=== PATIENT | female | born 1980 | race Caucasian/White ===

== ENCOUNTER 2016-09-10 10:35 | Emergency (ER) | payer OTHER, MEDICARE ==
[~2016-09-10] VITALS: Ht 180.3 cm; Wt 100.0 kg
[~2016-09-10 10:35] MED LIST: ABILIFY5 MG OR; ACETTAB3 OR; ADALAT CC60 MG PO; AMBIEN5 MG PO; AMOXICILLIN500 MG OR; ANTIVERT PO; ASPIRIN LOW DOS81 M2 PO; ATORVASTATIN CA40 MG PO; AUGMENTIN875 MG OR; BACTRIM DS1 TAB OR; BACTRIM DS1 TAB PO; CEFEPIME IV; CLONIDINE0.1 MG OR; CLONIDINE0.1 MG PO; CLONIDINE0.2 MG PO; DICLOFENAC75 MG OR; DIFLUCAN100 MG OR; DOXYCYCL HYC100 M4 PO; DOXYCYCL HYC100 MG PO; FERR SULFATE325 MG OR; FLUOXETINE20 MG PO; GLYBURIDE5 MG OR; HUMULIN R1 M1 SC; HUMULIN R1 ML SC; HYDRALAZINE50 MG OR; HYDROCHLOROT25 MG OR; JANUVIA100 MG OR; KEFLEX500 M1 PO; KLOR-CON 1010 ME1 PO; LABETALOL200 MG OR; LAMICTAL100 M1 PO; LAMICTAL150 M1 OR; LANTUS100 MG/ML SC; LEVEMIR1000 UNITS; LEVEMIR1000 UNITS SC; LEXAPRO10 MG OR; LEXAPRO20 MG OR; LISINOP/HCTZ1 TAB PO; LISINOPRIL10 MG OR; LISINOPRIL20 M1 OR; LISINOPRIL20 MG PO; LORTAB 10 OR; LORTAB 1010 MG PO; LORTAB 5 OR; LORTAB 7.5 OR; LORTAB5 OR; MEDDOSEPAK PO; METO25TAB OR; NAPROSYN500 MG OR; NAPROSYN500 MG PO; NAPROXEN500 MG PO; NIFEDIPINE60 M1 OR; NORCO1 TA1 PO; NOVOLIN 70/30 SC; NYSTATIN100000 M3 EX; PERCOCET 5/325M1 TAB OR; PROCARDIA XL60 MG PO; PROCARDIA10 MG OR; PROCARDIA10 MG PO; PROZAC10 MG PO; RYZOLT100 MG OR; TRAMADOL HCL50 MG PO; TRAZODONE100 MG OR; TRAZODONE50 MG PO; TRICOR145 MG PO; TRILEPTAL300 MG PO; TYLENOL # 31 TA1 PO; ULTRAM50 M1 PO; ULTRAM50 MG OR; UNKNOWN PAIN MED; VANCOMYCIN HCL1.5GM IV; VENTOLIN HFA IN; VISTARIL 50MG C50 M1 PO; ZANAFLEX4 MG PO; ZITHROMAX250 MG PO; ZITHROMAX500 MG OR; ZOFRAN ODT4 MG PO; ZPAK PO; [UNRECOGNIZED DRUG - CODE] OR; [UNRECOGNIZED DRUG - OTHER] IV
[2016-09-10] MEDS ORDERED: TRESIBA FL100 UNIT/M SC (10:59)
[2016-09-10 12:51] VITALS: BP 176/88
[2016-09-10] MEDS ORDERED: NAPROSYN500 MG PO (12:51)
== END 2016-09-10 12:59 | disposition home or self-care (01) | DRG 552 ==
LOC: ED 10:35
DX: S16.1XXA Strain of muscle, fascia and tendon at neck level, initial encounter (principal); I10 Essential (primary) hypertension; S39.012A Strain of muscle, fascia and tendon of lower back, initial encounter; E11.9 Type 2 diabetes mellitus without complications; F41.0 Panic disorder [episodic paroxysmal anxiety]; F31.9 Bipolar disorder, unspecified; F17.210 Nicotine dependence, cigarettes, uncomplicated; V49.49XA Driver injured in collision with other motor vehicles in traffic accident, initial encounter

== ENCOUNTER 2016-11-24 10:26 | Emergency (ER) | payer MEDICARE, OTHER ==
[~2016-11-24] VITALS: Ht 177.8 cm; Wt 100.0 kg
[~2016-11-24 10:26] MED LIST changes: +TRESIBA FL100 UNIT/M SC
[2016-11-24 11:10] LABS: URINE BILIRUBIN - DIPSTICK SMALL (NEGATIVE); URINE BLOOD DIPSTICK NEGATIVE (NEGATIVE); URINE CLARITY SLIGHT CLOUDY; URINE COLOR YELLOW; URINE GLUCOSE - DIPSTICK >=1000 mg/dL (NEGATIVE); URINE KETONE NEGATIVE (NEGATIVE); URINE LEUK ESTERASE NEGATIVE (NEGATIVE); URINE NITRITE - DIPSTICK NEGATIVE (Negative); URINE PH 5.5 (4.5-8.0); URINE PROTEIN - DIPSTICK 100 mg/dL (NEG-TRACE); URINE SPECIFIC GRAVITY >=1.030; URINE UROBILINOGEN - DIPSTICK 0.2 E.U./dL (0.2)
[2016-11-24 11:11] LABS: URINE EPITHELIAL CELLS MODERATE EPI/hpf (0-FEW); URINE MUCUS FEW hpf (NONE-FEW)
[2016-11-24 12:07] LABS: C. DIFFICILE TOXIN A&B NEGATIVE (NEGATIVE)
[2016-11-24 12:41] LABS: HEMATOCRIT 43.8 % (37.0-47.0); HEMOGLOBIN 15.2 g/dl (12.0-16.0); IMMATURE GRANULOCYTES 0.3 % (0.0-1.0); MEAN CELL VOLUME 82.5 fL CALC (80.0-100.0); MEAN CORPUSCULAR HGB 28.6 pG CALC (26.0-32.0); MEAN CORPUSCULAR HGB CONC 34.7 g/L CALC (32.0-36.0); NEUT# 9.34 thou/uL (2.00-7.15); RED BLOOD COUNT 5.31 mill/uL (4.20-5.60); RED CELL DISTRI WIDTH 12.2 % (11.5-15.5)
[2016-11-24 12:51] LABS: BARBITURATES NEGATIVE (NEGATIVE); COCAINE NEGATIVE (NEGATIVE); METHADONE NEGATIVE (NEGATIVE); OXCYCODONE NEGATIVE (NEGATIVE); TETRAHYDROCANNABIONOL NEGATIVE (NEGATIVE); TRICYLIC ANTIDEPRESSANTS NEGATIVE (NEGATIVE)
[2016-11-24 13:05] LABS: ALBUMIN 4.4 g/dL (3.2-5.0); ALKALINE PHOSPHATASE 97 u/l (38-126); ANION GAP 17 (6-22 (CALC)); BILIRUBIN, TOTAL 0.6 mg/dL (0.0-1.4); BUN 23 mg/dL (7-17); BUN/CREATININE RATIO 21 (12-20 (CALC)); CALCIUM 9.6 mg/dL (8.4-10.2); CARBON DIOXIDE 25 mmol/l (22-30); CHLORIDE 98 mmol/l (95-108); CREATININE 1.1 mg/dL (0.5-1.0); GFR 56 ML/MIN (>=60 (CALC)); GFR FOR AFR.AMER. > 60 ML/MIN (>=60 (CALC)); GLUCOSE 340 mg/dL (65-105); LIPASE 165 u/l (23-300); SGOT/AST 22 u/l (14-36); SGPT/ALT 47 u/l (9-52); SODIUM 136 mmol/l (137-146); TOTAL PROTEIN 7.7 g/dL (6.3-8.2)
[2016-11-24] MEDS ORDERED: ZITHROMAX250 MG PO (13:43)
[2016-11-24] MEDS ORDERED: ZOFRAN ODT4 MG PO (13:43)
[2016-11-24 14:19] VITALS: BP 137/76
== END 2016-11-24 14:33 | disposition home or self-care (01) ==
LOC: ED 10:26
PROVIDERS: Emergency Medicine
DX: K52.9 Noninfective gastroenteritis and colitis, unspecified (principal); I10 Essential (primary) hypertension; E11.9 Type 2 diabetes mellitus without complications; F41.0 Panic disorder [episodic paroxysmal anxiety]; F31.9 Bipolar disorder, unspecified; G89.29 Other chronic pain; M54.9 Dorsalgia, unspecified; F17.210 Nicotine dependence, cigarettes, uncomplicated
CPT/HCPCS: Q9967

== ENCOUNTER 2016-12-04 06:59 | Emergency (ER) | payer OTHER, MEDICARE ==
[~2016-12-04] VITALS: Ht 177.8 cm; Wt 100.0 kg
[2016-12-04 07:49] LABS: HEMATOCRIT 44.6 % (37.0-47.0); HEMOGLOBIN 15.4 g/dl (12.0-16.0); IMMATURE GRANULOCYTES 0.6 % (0.0-1.0); MEAN CELL VOLUME 82.7 fL CALC (80.0-100.0); MEAN CORPUSCULAR HGB 28.6 pG CALC (26.0-32.0); MEAN CORPUSCULAR HGB CONC 34.5 g/L CALC (32.0-36.0); NEUT# 5.82 thou/uL (2.00-7.15); RED BLOOD COUNT 5.39 mill/uL (4.20-5.60); RED CELL DISTRI WIDTH 12.2 % (11.5-15.5)
[2016-12-04 08:17] LABS: ALBUMIN 4.4 g/dL (3.2-5.0); ALKALINE PHOSPHATASE 97 u/l (38-126); ANION GAP 16 (6-22 (CALC)); BILIRUBIN, TOTAL 0.6 mg/dL (0.0-1.4); BUN 17 mg/dL (7-17); BUN/CREATININE RATIO 20 (12-20 (CALC)); CALCIUM 9.5 mg/dL (8.4-10.2); CARBON DIOXIDE 28 mmol/l (22-30); CHLORIDE 98 mmol/l (95-108); CREATININE 0.8 mg/dL (0.5-1.0); ETHYL ALCOHOL 0 mg/dl (0-30); GFR > 60 ML/MIN (>=60 (CALC)); GFR FOR AFR.AMER. > 60 ML/MIN (>=60 (CALC)); GLUCOSE 319 mg/dL (65-105); POTASSIUM 3.9 mmol/l (3.5-5.1); SGOT/AST 37 u/l (14-36); SGPT/ALT 64 u/l (9-52); SODIUM 137 mmol/l (137-146); TOTAL PROTEIN 7.2 g/dL (6.3-8.2)
[2016-12-04 08:40] LABS: COCAINE NEGATIVE (NEGATIVE); METHADONE NEGATIVE (NEGATIVE); TETRAHYDROCANNABIONOL NEGATIVE (NEGATIVE)
[2016-12-04 08:41] LABS: BARBITURATES NEGATIVE (NEGATIVE); OXCYCODONE NEGATIVE (NEGATIVE); TRICYLIC ANTIDEPRESSANTS POSITIVE (NEGATIVE)
[2016-12-04] MEDS ORDERED: MOTRIN800 MG PO (09:05)
[2016-12-04] MEDS ORDERED: PERCOCET 5/325M1 TAB PO (09:05)
[2016-12-04 09:10] VITALS: BP 124/80
== END 2016-12-04 09:24 | disposition home or self-care (01) | DRG 605 ==
LOC: ED 06:59
PROVIDERS: Emergency Medicine
DX: S20.212A Contusion of left front wall of thorax, initial encounter (principal); R07.89 Other chest pain; V53.5XXD Driver of pick-up truck or van injured in collision with car, pick-up truck or van in traffic accident, subsequent encounter

== ENCOUNTER 2017-01-05 11:28 | Emergency (ER) | payer MEDICARE, OTHER ==
[~2017-01-05] VITALS: Ht 180.3 cm; Wt 92.0 kg
[~2017-01-05 11:28] MED LIST changes: +MOTRIN800 MG PO; +PERCOCET 5/325M1 TAB PO
[2017-01-05 12:52] VITALS: BP 175/104
== END 2017-01-05 12:41 | disposition home or self-care (01) ==
LOC: ED 11:28
PROC: 0H98XZZ Drainage of Buttock Skin, External Approach (ICD-10-PCS; principal; 2017-01-05)
DX: L02.31 Cutaneous abscess of buttock (principal); I10 Essential (primary) hypertension; E11.9 Type 2 diabetes mellitus without complications; F41.0 Panic disorder [episodic paroxysmal anxiety]; F31.9 Bipolar disorder, unspecified; F17.210 Nicotine dependence, cigarettes, uncomplicated; Z79.4 Long term (current) use of insulin

== ENCOUNTER 2017-01-06 09:35 | Emergency (ER) | payer MEDICARE, OTHER ==
[~2017-01-06] VITALS: Ht 180.3 cm; Wt 101.0 kg
[2017-01-06 10:13] VITALS: BP 128/83
== END 2017-01-06 10:00 | disposition home or self-care (01) ==
LOC: ED 09:35
DX: Z48.01 Encounter for change or removal of surgical wound dressing (principal)

== ENCOUNTER 2017-01-18 20:11 | Emergency (ER) | payer MEDICARE, OTHER ==
[~2017-01-18] VITALS: Ht 180.3 cm; Wt 92.7 kg
[2017-01-18] MEDS ORDERED: NEURONTIN300 MG PO (20:28)
[2017-01-18] MEDS ORDERED: HYDROCODONE/ACE1 TAB PO (20:29)
[2017-01-18] MEDS ORDERED: ULTRAM50 M1 PO (21:55)
[2017-01-18 22:25] VITALS: BP 172/99
== END 2017-01-18 22:25 | disposition home or self-care (01) ==
LOC: ED 20:11
DX: S00.93XA Contusion of unspecified part of head, initial encounter (principal); S13.9XXA Sprain of joints and ligaments of unspecified parts of neck, initial encounter; S43.401A Unspecified sprain of right shoulder joint, initial encounter; S33.5XXA Sprain of ligaments of lumbar spine, initial encounter; Y04.0XXA Assault by unarmed brawl or fight, initial encounter; W18.39XA Other fall on same level, initial encounter; Y92.009 Unspecified place in unspecified non-institutional (private) residence as the place of occurrence of the external cause

== ENCOUNTER 2017-01-26 05:42 | Inpatient (IN) | payer MEDICARE, OTHER ==
[~2017-01-26] VITALS: Ht 180.3 cm; Wt 88.0 kg
[~2017-01-26 05:42] MED LIST changes: +HYDROCODONE/ACE1 TAB PO; +NEURONTIN300 MG PO
--- NOTE | 2017-01-26 06:00 | NUR ---
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
[2017-01-26 06:18] LABS: HEMATOCRIT 43.2 % (37.0-47.0); HEMOGLOBIN 15.3 g/dl (12.0-16.0); IMMATURE GRANULOCYTES 0.4 % (0.0-1.0); MEAN CELL VOLUME 81.2 fL CALC (80.0-100.0); MEAN CORPUSCULAR HGB 28.8 pG CALC (26.0-32.0); MEAN CORPUSCULAR HGB CONC 35.4 g/L CALC (32.0-36.0); NEUT# 17.57 thou/uL (2.00-7.15); RED BLOOD COUNT 5.32 mill/uL (4.20-5.60); RED CELL DISTRI WIDTH 12.3 % (11.5-15.5)
[2017-01-26 06:27] LABS: ALBUMIN 4.6 g/dL (3.2-5.0); ALKALINE PHOSPHATASE 164 u/l (38-126); AMYLASE 58 u/l (30-110); ANION GAP 20 (6-22 (CALC)); BILIRUBIN, TOTAL 0.7 mg/dL (0.0-1.4); BUN 27 mg/dL (7-17); BUN/CREATININE RATIO 26 (12-20 (CALC)); CALCIUM 9.5 mg/dL (8.4-10.2); CARBON DIOXIDE 20 mmol/l (22-30); CHLORIDE 95 mmol/l (95-108); GFR > 60 ML/MIN (>=60 (CALC)); GFR FOR AFR.AMER. > 60 ML/MIN (>=60 (CALC)); LIPASE 160 u/l (23-300); POTASSIUM 3.5 mmol/l (3.5-5.1); SGOT/AST 36 u/l (14-36); SGPT/ALT 53 u/l (9-52); SODIUM 131 mmol/l (137-146); TOTAL PROTEIN 7.9 g/dL (6.3-8.2)
[2017-01-26 06:30] LABS: GLUCOSE 560 mg/dL (65-105)
--- NOTE | 2017-01-26 06:32 | NUR ---
DR Collins INFORMED OF WBC LAB ORDERED STAT LACTIC ACID LAB
--- NOTE | 2017-01-26 06:49 | NUR ---
BEDSIDE REPORT TO WILBERT
--- NOTE | 2017-01-26 07:00 | NUR ---
PATIENT CARE RECIEVED FROM JANAE RO RN.
[2017-01-26 07:04] LABS: URINE BILIRUBIN - DIPSTICK NEGATIVE (NEGATIVE); URINE BLOOD DIPSTICK SMALL (NEGATIVE); URINE CLARITY SLIGHT CLOUDY; URINE COLOR YELLOW; URINE GLUCOSE - DIPSTICK >=1000 mg/dL (NEGATIVE); URINE KETONE TRACE mg/dL (NEGATIVE); URINE LEUK ESTERASE NEGATIVE (NEGATIVE); URINE NITRITE - DIPSTICK NEGATIVE (Negative); URINE PROTEIN - DIPSTICK 30 mg/dL (NEG-TRACE); URINE SPECIFIC GRAVITY 1.015; URINE UROBILINOGEN - DIPSTICK 0.2 E.U./dL (0.2)
[2017-01-26 07:23] LABS: URINE SQUAMOUS EPITHELIAL CELL MANY EPI/hpf (0-FEW)
[2017-01-26 07:24] LABS: URINE BACTERIA MODERATE hpf
--- NOTE | 2017-01-26 07:43 | NUR ---
PATIENT RETURNED FROM CT VIA STRETCHER. PATIENT RESTING IN STRETCHER WITH EYES CLOSED, AWAKENS TO VERBAL STIMULI. PAIN NOW 7/10 BUT BEARABLE PER PATIENT. INFOMRED OF PLAN OF CARE. VSS. WILL CONTINUE TO MONITOR. CALL SHANKAR WITHIN REACH.
--- NOTE | 2017-01-26 08:05 | NUR ---
INFORMED MD OF PATIENTS BLOOD GLUCOSE STATUS AND ORDERS RECIEVED
--- NOTE | 2017-01-26 09:00 | NUR ---
PATIENT REPORTS PAIN AT A 5/10. DENIES ANY NEEDS AT THIS TIME. AWARE OF PENDING ADMISSION. WILL CONTINUE TO MONITOR.
--- NOTE | 2017-01-26 09:15 | NUR ---
ACCUCHECK COMPLETED - 360. PATIENT RESTING WITH EYES CLOSED IN STRETCHER, AWAKENS TO VERBAL STIMULI. WILL CONTINUE TO MONITOR.
--- NOTE | 2017-01-26 09:20 | NUR ---
REPORT CALLED TO CAROL DONG.
--- NOTE | 2017-01-26 09:30 | NUR ---
PATIENT AMBULATORY TO BATHROOM WITH A STEADY GAIT.
--- NOTE | 2017-01-26 09:40 | NUR ---
FROM ER VIA WHEELCHAIR ACCOMPANIED BY ALEJANDRO MARIANO. AMBULATED TO BED WITH STEADY GAIT. RESPS EVEN AND UNLABORED ON ROOM AIR, TELE MONITOR IN PLACE. #20 RFA INFUSING WITHOUT DIFFICULTY, SITE APPEARS HEALTHY. DENIES PAIN OR DISCOMFORT. ORIENTED TO ROOM AND CALL SYSTEM. SAFETY PRECAUTIONS REINFORCED. BED IN LOWEST POSITION WITH WHEELS LOCKED. CALL LIGHT WITHIN REACH. ENCOURAGED PT TO CALL FOR ANY NEEDS.
[2017-01-26 09:45] VITALS: BP 133/85
--- NOTE | 2017-01-26 09:46 | NUR ---
Admission Note Report Given to: IKER Transported by: X Wheelchair Stretcher Transported with: X Nurse Transporter X Patent IV O2 X Polymerization Engineer PATIENT TRANSFERED TO ROOM 263 VIA WHEELCHAIR IN STABLE CONDITION, PAIN 11/19. IV X2 PATENT.
--- NOTE | 2017-01-26 09:47 | NUR ---
PATIENT TRANSPORTED TO [facility]
--- NOTE | 2017-01-26 12:00 | NUR ---
SITTING IN BED EATING LUNCH. RESPS EVEN AND UNLABORED ON ROOM AIR, TELE MONITOR IN PLACE. #22 RFA INFUSING WITHOUT DIFFICULTY, SITE APPEARS HEALTHY. MEDICATED WITH LORTAB PO C/O 01/19 LOW BACK PAIN. CALL MALINA SEGOVIA. WILL CONTINUE TO MONITOR.
[2017-01-26] MEDS ORDERED: NOVOLOG MIX SC (13:17)
[2017-01-26 14:27] VITALS: BP 136/93
--- NOTE | 2017-01-26 14:39 | NUR ---
Patient was tired and was feeling hot. Did not have any questions or concerns regarding medication.
--- NOTE | 2017-01-26 16:10 | NUR ---
RESTING IN SEMI FOWLERS POSITION. RESPS EVEN AND UNLABORED ON ROOM AIR, TELE MONITOR IN PLACE. #22 LFA INFUSING WITHOUT DIFFICULTY, SITE APPEARS HEALTHY. AMBULATES TO BATHROOM WITH STEADY GAIT. PO FLUIDS OFFERED. CALL LIGHT WITHIN REACH. WILL CONTINUE TO MONITOR.
[2017-01-26 19:47] VITALS: BP 168/98
--- NOTE | 2017-01-26 20:15 | NUR ---
MEDICATED WITH LORTAB FOR LOWER BACK PAIN AND HEADACHE 02/19. NS INFUSING TO LFA AT 150CC/HR. CALL LIGHT IN REACH. WILL CONTINUE TO MONITOR.
--- NOTE | 2017-01-27 | NUR ---
RESTING ON RIGHT SIDE WITH EYES CLOSED, RESPIRATIONS EVEN AND UNLABORED.
[2017-01-27 01:20] VITALS: BP 139/93
--- NOTE | 2017-01-27 03:55 | NUR ---
C/O LOWER BACK PAIN 04/21, MEDICATED WITH LORTAB AT THIS TIME.
[2017-01-27 03:58] VITALS: BP 138/90
[2017-01-27 06:19] LABS: HEMATOCRIT 37.8 % (37.0-47.0); IMMATURE GRANULOCYTES 0.3 % (0.0-1.0); MEAN CELL VOLUME 83.1 fL CALC (80.0-100.0); MEAN CORPUSCULAR HGB 28.6 pG CALC (26.0-32.0); MEAN CORPUSCULAR HGB CONC 34.4 g/L CALC (32.0-36.0); NEUT# 7.21 thou/uL (2.00-7.15); RED BLOOD COUNT 4.55 mill/uL (4.20-5.60); RED CELL DISTRI WIDTH 12.6 % (11.5-15.5)
[2017-01-27 06:42] LABS: ANION GAP 14 (6-22 (CALC)); BUN 15 mg/dL (7-17); BUN/CREATININE RATIO 22 (12-20 (CALC)); CALCIUM 9.1 mg/dL (8.4-10.2); CARBON DIOXIDE 25 mmol/l (22-30); CHLORIDE 99 mmol/l (95-108); CREATININE 0.7 mg/dL (0.5-1.0); GFR > 60 ML/MIN (>=60 (CALC)); GFR FOR AFR.AMER. > 60 ML/MIN (>=60 (CALC)); GLUCOSE 141 mg/dL (65-105); POTASSIUM 3.5 mmol/l (3.5-5.1); SODIUM 135 mmol/l (137-146)
--- NOTE | 2017-01-27 07:00 | NUR ---
RECEIVED BEDSIDE REPORT FROM NITISH MARIANO. IN HIGH FOWLERS WATCHING TV. RESPS EVEN AND UNLABORED ON ROOM AIR, TELE MONITOR IN PLACE. #22 LFA INFUSING WITHOUT DIFFICULTY, SITE APPEARS HEALTHY. VOICES NO NEEDS AT THIS TIME. PLAN OF CARE DISCUSSED. SAFETY PRECAUTIONS REINFORCED. BED IN LOWEST POSITION WITH WHEELS LOCKED. CALL LIGHT WITHIN REACH. ENCOURAGED PT TO CALL FOR ANY NEEDS.
[2017-01-27 07:49] VITALS: BP 156/98
[2017-01-27 07:54] VITALS: BP 156/98
[2017-01-27 08:17] LABS: CHOLESTEROL HDL RATIO 6.2 (<4.4 (CALC))
--- NOTE | 2017-01-27 09:25 | NUR ---
DR TATE IN TO SEE PT, NEW ORDERS RECEIVED.
[2017-01-27] MEDS ORDERED: FISH OIL1000 M2 PO (09:52)
[2017-01-27] MEDS ORDERED: NOVOLOG100 UNIT/M SC (09:52)
--- NOTE | 2017-01-27 10:49 | NUR ---
Discharge instructions given. Patient verbalizes understanding of same. Discharged in stable condition via Wheelchair to Home with family. All belongings sent with pt.
== END 2017-01-27 10:49 | disposition home or self-care (01) | DRG 638 ==
LOC: ENPENDDIS → ED 05:42 → ED-I 06:04 → ED 06:04 → ED-I 06:28 → ED 08:17 → MS2 08:18
PROVIDERS: Emergency Medicine; Nurse Practitioner Family; ADMIT Internal Medicine; ATTEND Internal Medicine
DX: E11.65 Type 2 diabetes mellitus with hyperglycemia (principal); N39.0 Urinary tract infection, site not specified; I10 Essential (primary) hypertension; E87.1 Hypo-osmolality and hyponatremia; F41.0 Panic disorder [episodic paroxysmal anxiety]; F31.9 Bipolar disorder, unspecified; G47.30 Sleep apnea, unspecified; F17.210 Nicotine dependence, cigarettes, uncomplicated; G89.29 Other chronic pain; M54.9 Dorsalgia, unspecified; E86.0 Dehydration; K52.9 Noninfective gastroenteritis and colitis, unspecified; E78.1 Pure hyperglyceridemia; Z91.14 Patient's other noncompliance with medication regimen; Z79.4 Long term (current) use of insulin; Z63.9 Problem related to primary support group, unspecified
CPT/HCPCS: J1956

== ENCOUNTER 2017-03-16 15:42 | Emergency (ER) | payer MEDICARE, OTHER ==
[~2017-03-16] VITALS: Ht 180.3 cm; Wt 80.0 kg
[~2017-03-16 15:42] MED LIST changes: +FISH OIL1000 M2 PO; +NOVOLOG MIX SC; +NOVOLOG100 UNIT/M SC
[2017-03-16 16:55] LABS: HEMATOCRIT 42.5 % (37.0-47.0); HEMOGLOBIN 14.4 g/dl (12.0-16.0); IMMATURE GRANULOCYTES 0.5 % (0.0-1.0); MEAN CELL VOLUME 82.4 fL CALC (80.0-100.0); MEAN CORPUSCULAR HGB 27.9 pG CALC (26.0-32.0); MEAN CORPUSCULAR HGB CONC 33.9 g/L CALC (32.0-36.0); NEUT# 8.06 thou/uL (2.00-7.15); RED BLOOD COUNT 5.16 mill/uL (4.20-5.60); RED CELL DISTRI WIDTH 12.6 % (11.5-15.5)
[2017-03-16 17:10] LABS: ANION GAP 15 (6-22 (CALC)); BUN 22 mg/dL (7-17); BUN/CREATININE RATIO 22 (12-20 (CALC)); CALCIUM 9.4 mg/dL (8.4-10.2); CARBON DIOXIDE 27 mmol/l (22-30); CHLORIDE 102 mmol/l (95-108); GFR > 60 ML/MIN (>=60 (CALC)); GFR FOR AFR.AMER. > 60 ML/MIN (>=60 (CALC)); GLUCOSE 124 mg/dL (65-105); POTASSIUM 4.2 mmol/l (3.5-5.1); SODIUM 139 mmol/l (137-146)
[2017-03-16] MEDS ORDERED: BACTRIM DS1 TAB PO (18:49)
[2017-03-16] MEDS ORDERED: OMNICEF300 M1 PO (18:49)
[2017-03-16 19:02] VITALS: BP 184/87
== END 2017-03-16 19:37 | disposition home or self-care (01) ==
LOC: ED 15:42
PROVIDERS: Family Medicine
DX: F17.210 Nicotine dependence, cigarettes, uncomplicated (principal); I10 Essential (primary) hypertension; E11.9 Type 2 diabetes mellitus without complications; F41.9 Anxiety disorder, unspecified; F31.9 Bipolar disorder, unspecified; L03.116 Cellulitis of left lower limb; M79.89 Other specified soft tissue disorders

== ENCOUNTER 2017-05-10 10:51 | Emergency (ER) | payer MEDICARE, OTHER ==
[~2017-05-10] VITALS: Ht 180.3 cm; Wt 80.0 kg
[~2017-05-10 10:51] MED LIST changes: +OMNICEF300 M1 PO
[2017-05-10 11:15] LABS: HEMATOCRIT 47.2 % (37.0-47.0); HEMOGLOBIN 16.1 g/dl (12.0-16.0); IMMATURE GRANULOCYTES 0.4 % (0.0-1.0); MEAN CELL VOLUME 81.8 fL CALC (80.0-100.0); MEAN CORPUSCULAR HGB 27.9 pG CALC (26.0-32.0); MEAN CORPUSCULAR HGB CONC 34.1 g/L CALC (32.0-36.0); NEUT# 8.93 thou/uL (2.00-7.15); RED BLOOD COUNT 5.77 mill/uL (4.20-5.60); RED CELL DISTRI WIDTH 12.2 % (11.5-15.5)
[2017-05-10 11:16] LABS: URINE BILIRUBIN - DIPSTICK NEGATIVE (NEGATIVE); URINE BLOOD DIPSTICK TRACE-INTACT (NEGATIVE); URINE COLOR YELLOW; URINE GLUCOSE - DIPSTICK >=1000 mg/dL (NEGATIVE); URINE KETONE NEGATIVE (NEGATIVE); URINE LEUK ESTERASE NEGATIVE (NEGATIVE); URINE NITRITE - DIPSTICK NEGATIVE (Negative); URINE PH 5.5 (4.5-8.0); URINE PROTEIN - DIPSTICK 30 mg/dL (NEG-TRACE); URINE SPECIFIC GRAVITY 1.025; URINE UROBILINOGEN - DIPSTICK 0.2 E.U./dL (0.2)
[2017-05-10 11:17] LABS: URINE CLARITY HAZY
[2017-05-10 11:18] LABS: HCG SERUM/URINE (NEG/POS) NEGATIVE (NEGATIVE)
[2017-05-10 11:23] LABS: URINE RBC 0-2 RBC/hpf (0-5); URINE SQUAMOUS EPITHELIAL CELL MANY EPI/hpf (0-FEW); URINE WBC 0-2 WBC/hpf (0-5)
[2017-05-10 11:31] LABS: ALBUMIN 4.8 g/dL (3.2-5.0); ALKALINE PHOSPHATASE 118 u/l (38-126); AMYLASE 37 u/l (30-110); ANION GAP 20 (6-22 (CALC)); BILIRUBIN, TOTAL 0.8 mg/dL (0.0-1.4); BUN 20 mg/dL (7-17); BUN/CREATININE RATIO 19 (12-20 (CALC)); CALCIUM 10.1 mg/dL (8.4-10.2); CARBON DIOXIDE 24 mmol/l (22-30); CHLORIDE 100 mmol/l (95-108); CREATININE 1.1 mg/dL (0.5-1.0); GFR 56 ML/MIN (>=60 (CALC)); GFR FOR AFR.AMER. > 60 ML/MIN (>=60 (CALC)); GLUCOSE 403 mg/dL (65-105); LIPASE 172 u/l (23-300); POTASSIUM 4.8 mmol/l (3.5-5.1); SGOT/AST 50 u/l (14-36); SGPT/ALT 78 u/l (9-52); SODIUM 140 mmol/l (137-146)
[2017-05-10] MEDS ORDERED: NORCO1 TA1 PO (15:14)
[2017-05-10] MEDS ORDERED: PROCARDIA XL60 MG PO (15:15)
[2017-05-10] MEDS ORDERED: LISINOPRIL5 MG PO (15:16)
[2017-05-10] MEDS ORDERED: FLEXERIL5 MG PO (15:16)
[2017-05-10 15:47] LABS: C. DIFFICILE TOXIN A&B NEGATIVE (NEGATIVE)
[2017-05-10] MEDS ORDERED: ZOFRAN4 MG/TAB PO (15:57)
[2017-05-10 16:02] VITALS: BP 121/75
== END 2017-05-10 16:21 | disposition home or self-care (01) ==
LOC: ED 10:51
PROVIDERS: Emergency Medicine
DX: K52.9 Noninfective gastroenteritis and colitis, unspecified (principal); E11.65 Type 2 diabetes mellitus with hyperglycemia; I10 Essential (primary) hypertension; F41.0 Panic disorder [episodic paroxysmal anxiety]; F31.9 Bipolar disorder, unspecified; G47.30 Sleep apnea, unspecified; F17.210 Nicotine dependence, cigarettes, uncomplicated
CPT/HCPCS: Q9967

== ENCOUNTER 2017-05-24 13:30 | Observation (INO) | payer MEDICARE, OTHER ==
[~2017-05-24] VITALS: Ht 177.8 cm; Wt 89.4 kg
[~2017-05-24 13:30] MED LIST changes: +FLEXERIL5 MG PO; +LISINOPRIL5 MG PO; +ZOFRAN4 MG/TAB PO
[2017-05-24 14:02] LABS: HEMATOCRIT 43.6 % (37.0-47.0); IMMATURE GRANULOCYTES 0.5 % (0.0-1.0); MEAN CELL VOLUME 80.9 fL CALC (80.0-100.0); MEAN CORPUSCULAR HGB 27.8 pG CALC (26.0-32.0); MEAN CORPUSCULAR HGB CONC 34.4 g/L CALC (32.0-36.0); NEUT# 7.48 thou/uL (2.00-7.15); RED BLOOD COUNT 5.39 mill/uL (4.20-5.60); RED CELL DISTRI WIDTH 12.6 % (11.5-15.5)
[2017-05-24 14:14] LABS: ANION GAP 18 (6-22 (CALC)); BUN 20 mg/dL (7-17); BUN/CREATININE RATIO 18 (12-20 (CALC)); CALCIUM 10.3 mg/dL (8.4-10.2); CARBON DIOXIDE 27 mmol/l (22-30); CHLORIDE 99 mmol/l (95-108); CREATININE 1.1 mg/dL (0.5-1.0); GFR 56 ML/MIN (>=60 (CALC)); GFR FOR AFR.AMER. > 60 ML/MIN (>=60 (CALC)); GLUCOSE 392 mg/dL (65-105); POTASSIUM 3.9 mmol/l (3.5-5.1); SODIUM 140 mmol/l (137-146)
[2017-05-24 17:20] VITALS: BP 155/85
[2017-05-24 19:05] VITALS: BP 166/90
[2017-05-24 23:22] VITALS: BP 110/71
[2017-05-25 04:12] VITALS: BP 90/53
[2017-05-25 06:02] LABS: HEMATOCRIT 37.5 % (37.0-47.0); HEMOGLOBIN 12.9 g/dl (12.0-16.0); IMMATURE GRANULOCYTES 0.5 % (0.0-1.0); MEAN CELL VOLUME 82.6 fL CALC (80.0-100.0); MEAN CORPUSCULAR HGB 28.4 pG CALC (26.0-32.0); MEAN CORPUSCULAR HGB CONC 34.4 g/L CALC (32.0-36.0); NEUT# 4.29 thou/uL (2.00-7.15); RED BLOOD COUNT 4.54 mill/uL (4.20-5.60); RED CELL DISTRI WIDTH 12.6 % (11.5-15.5)
[2017-05-25 06:19] LABS: ANION GAP 13 (6-22 (CALC)); BUN 22 mg/dL (7-17); BUN/CREATININE RATIO 21 (12-20 (CALC)); CALCIUM 9.2 mg/dL (8.4-10.2); CARBON DIOXIDE 29 mmol/l (22-30); CHLORIDE 102 mmol/l (95-108); CREATININE 1.1 mg/dL (0.5-1.0); GFR 56 ML/MIN (>=60 (CALC)); GFR FOR AFR.AMER. > 60 ML/MIN (>=60 (CALC)); GLUCOSE 273 mg/dL (65-105); POTASSIUM 3.8 mmol/l (3.5-5.1); SODIUM 140 mmol/l (137-146)
[2017-05-25] MEDS ORDERED: NOVOLOG MIX 70/1 INJ (08:11)
[2017-05-25 08:16] VITALS: BP 96/65
[2017-05-25 08:42] LABS: MAGNESIUM 1.6 mg/dL (1.6-2.3)
[2017-05-25 09:31] VITALS: BP 92/61
[2017-05-25] MEDS ORDERED: ASPIRIN ADULT L81 M2 PO (09:49)
== END 2017-05-25 10:54 | disposition home or self-care (01) ==
LOC: ED 13:30 → ED-I 15:49 → ED 15:57 → MS2 15:58
PROVIDERS: Family Medicine; Nurse Practitioner Family; ADMIT Internal Medicine; ATTEND Internal Medicine
DX: R07.89 Other chest pain (principal); I10 Essential (primary) hypertension; E11.65 Type 2 diabetes mellitus with hyperglycemia; F41.0 Panic disorder [episodic paroxysmal anxiety]; F31.9 Bipolar disorder, unspecified; G47.30 Sleep apnea, unspecified; G89.29 Other chronic pain; M54.9 Dorsalgia, unspecified; F43.9 Reaction to severe stress, unspecified; G43.909 Migraine, unspecified, not intractable, without status migrainosus; F17.210 Nicotine dependence, cigarettes, uncomplicated; Z91.14 Patient's other noncompliance with medication regimen; Z79.4 Long term (current) use of insulin; Z91.11 Patient's noncompliance with dietary regimen
CPT/HCPCS: G0378

== ENCOUNTER 2017-08-20 07:37 | Emergency (ER) | payer MEDICARE, OTHER ==
[~2017-08-20] VITALS: Ht 177.8 cm; Wt 85.8 kg
[~2017-08-20 07:37] MED LIST changes: +ASPIRIN ADULT L81 M2 PO; +NOVOLOG MIX 70/1 INJ
[2017-08-20 09:05] LABS: INFLUENZA A POSITIVE (NONE DETECT); INFLUENZA B NONE DETECTED (NONE DETECT)
[2017-08-20 09:19] LABS: HEMATOCRIT 46.8 % (37.0-47.0); HEMOGLOBIN 16.1 g/dl (12.0-16.0); IMMATURE GRANULOCYTES 0.5 % (0.0-1.0); MEAN CELL VOLUME 81.4 fL CALC (80.0-100.0); MEAN CORPUSCULAR HGB CONC 34.4 g/L CALC (32.0-36.0); NEUT# 8.83 thou/uL (2.00-7.15); RED BLOOD COUNT 5.75 mill/uL (4.20-5.60); RED CELL DISTRI WIDTH 12.1 % (11.5-15.5)
[2017-08-20 09:24] LABS: URINE BILIRUBIN - DIPSTICK NEGATIVE (NEGATIVE); URINE BLOOD DIPSTICK TRACE-INTACT (NEGATIVE); URINE COLOR YELLOW; URINE GLUCOSE - DIPSTICK >=1000 mg/dL (NEGATIVE); URINE KETONE NEGATIVE (NEGATIVE); URINE LEUK ESTERASE NEGATIVE (NEGATIVE); URINE NITRITE - DIPSTICK NEGATIVE (Negative); URINE PROTEIN - DIPSTICK 100 mg/dL (NEG-TRACE); URINE SPECIFIC GRAVITY 1.015; URINE UROBILINOGEN - DIPSTICK 0.2 E.U./dL (0.2)
[2017-08-20 09:45] LABS: URINE CLARITY CLEAR; URINE SQUAMOUS EPITHELIAL CELL FEW EPI/hpf (0-FEW)
[2017-08-20] MEDS ORDERED: TAM75CAP PO (10:06)
[2017-08-20 10:13] VITALS: BP 150/104
== END 2017-08-20 10:19 | disposition home or self-care (01) ==
LOC: ED 07:37
PROVIDERS: Emergency Medicine
DX: J10.1 Influenza due to other identified influenza virus with other respiratory manifestations (principal); R05 Cough; R10.30 Lower abdominal pain, unspecified; R50.9 Fever, unspecified; R19.7 Diarrhea, unspecified

== ENCOUNTER 2017-11-08 20:16 | Emergency (ER) | payer MEDICARE, OTHER ==
[~2017-11-08] VITALS: Ht 177.8 cm; Wt 90.2 kg
[~2017-11-08 20:16] MED LIST changes: +TAM75CAP PO
[2017-11-08] MEDS ORDERED: VENTOLIN HF1 IN (20:44)
[2017-11-08] MEDS ORDERED: LIPITOR40 M1 PO (20:44)
[2017-11-08] MEDS ORDERED: NABUMETONE500 MG PO (20:45)
[2017-11-08] MEDS ORDERED: NOVOLIN 70/30 INNLT SC (20:46)
[2017-11-08 21:56] LABS: HEMATOCRIT 44.7 % (37.0-47.0); HEMOGLOBIN 15.4 g/dl (12.0-16.0); IMMATURE GRANULOCYTES 0.5 % (0.0-1.0); MEAN CELL VOLUME 80.5 fL CALC (80.0-100.0); MEAN CORPUSCULAR HGB 27.7 pG CALC (26.0-32.0); MEAN CORPUSCULAR HGB CONC 34.5 g/L CALC (32.0-36.0); NEUT# 6.72 thou/uL (2.00-7.15); RED BLOOD COUNT 5.55 mill/uL (4.20-5.60); RED CELL DISTRI WIDTH 12.5 % (11.5-15.5)
[2017-11-08 22:13] LABS: ALBUMIN 4.2 g/dL (3.2-5.0); ANION GAP 19 (6-22 (CALC)); BILIRUBIN, TOTAL 0.4 mg/dL (0.0-1.4); BUN 24 mg/dL (7-17); BUN/CREATININE RATIO 30 (12-20 (CALC)); CARBON DIOXIDE 27 mmol/l (22-30); CHLORIDE 94 mmol/l (95-108); CREATININE 0.8 mg/dL (0.5-1.0); GFR > 60 ML/MIN (>=60 (CALC)); GFR FOR AFR.AMER. > 60 ML/MIN (>=60 (CALC)); POTASSIUM 3.8 mmol/l (3.5-5.1); SGOT/AST 17 u/l (14-36); SGPT/ALT 53 u/l (9-52); SODIUM 137 mmol/l (137-146); TOTAL PROTEIN 7.3 g/dL (6.3-8.2)
[2017-11-08 22:25] LABS: ALKALINE PHOSPHATASE 195 u/l (38-126)
[2017-11-09] MEDS ORDERED: ULTRAM50 M1 PO (00:11)
[2017-11-09 00:49] VITALS: BP 190/99
== END 2017-11-09 00:30 | disposition home or self-care (01) ==
LOC: ED 20:16
PROVIDERS: Emergency Medicine
DX: S20.211A Contusion of right front wall of thorax, initial encounter (principal); S30.1XXA Contusion of abdominal wall, initial encounter; I10 Essential (primary) hypertension; F31.9 Bipolar disorder, unspecified; F17.210 Nicotine dependence, cigarettes, uncomplicated; W22.03XA Walked into furniture, initial encounter; Y93.89 Activity, other specified; Y92.009 Unspecified place in unspecified non-institutional (private) residence as the place of occurrence of the external cause

== ENCOUNTER 2017-12-27 16:04 | Emergency (ER) | payer MEDICARE, OTHER ==
[~2017-12-27] VITALS: Ht 177.8 cm; Wt 95.0 kg
[~2017-12-27 16:04] MED LIST changes: +LIPITOR40 M1 PO; +NABUMETONE500 MG PO; +NOVOLIN 70/30 INNLT SC; +VENTOLIN HF1 IN
[2017-12-27] MEDS ORDERED: REXULTI2 MG PO (16:29)
[2017-12-27] MEDS ORDERED: HYDROCO/APAP1 TA9 PO (17:44)
[2017-12-27] MEDS ORDERED: MOTRIN400 MG PO (17:44)
[2017-12-27 17:51] VITALS: BP 159/91
== END 2017-12-27 18:39 | disposition home or self-care (01) ==
LOC: ED 16:04
PROC: 2W3QX1Z Immobilization of Right Lower Leg using Splint (ICD-10-PCS; principal; 2017-12-27)
DX: S82.301A Unspecified fracture of lower end of right tibia, initial encounter for closed fracture (principal); E11.9 Type 2 diabetes mellitus without complications; I10 Essential (primary) hypertension; F31.9 Bipolar disorder, unspecified; F17.210 Nicotine dependence, cigarettes, uncomplicated; W17.2XXA Fall into hole, initial encounter; Y93.89 Activity, other specified; Y92.410 Unspecified street and highway as the place of occurrence of the external cause

== ENCOUNTER 2018-08-04 22:51 | Emergency (ER) | payer MEDICARE, OTHER ==
[~2018-08-04] VITALS: Ht 177.8 cm; Wt 90.9 kg
[~2018-08-04 22:51] MED LIST changes: +CYCLOBENZAPR10 MG PO; +HYDROCO/APAP1 TA9 PO; +MOTRIN400 MG PO; +NARCAN4 MG/0.1 M; +REXULTI2 MG PO; +TOPIRAMATE100 MG PO; +TRESIBA FL200 UNIT/M SC; +TRESIVA SC
[2018-08-05 00:58] LABS: HEMATOCRIT 39.8 % (37.0-47.0); HEMOGLOBIN 13.8 g/dl (12.0-16.0); IMMATURE GRANULOCYTES 0.3 % (0.0-5.0); MEAN CELL VOLUME 82.1 fL CALC (80.0-100.0); MEAN CORPUSCULAR HGB 28.5 pG CALC (26.0-32.0); MEAN CORPUSCULAR HGB CONC 34.7 g/L CALC (32.0-36.0); NEUT# 4.99 thou/uL (2.00-7.15); RED BLOOD COUNT 4.85 mill/uL (4.20-5.60); RED CELL DISTRI WIDTH 12.2 % (11.5-15.5)
[2018-08-05 01:10] LABS: ALBUMIN 3.7 g/dL (3.2-5.0); ALKALINE PHOSPHATASE 176 u/l (38-126); ANION GAP 17 (6-22 (CALC)); BILIRUBIN, TOTAL 0.4 mg/dL (0.0-1.4); BUN 21 mg/dL (7-17); BUN/CREATININE RATIO 25 (12-20 (CALC)); CHLORIDE 98 mmol/l (95-108); CREATININE 0.8 mg/dL (0.5-1.0); GFR > 60 ML/MIN (>=60 (CALC)); GFR FOR AFR.AMER. > 60 ML/MIN (>=60 (CALC)); POTASSIUM 4.2 mmol/l (3.5-5.1); SGOT/AST 39 u/l (14-36); SODIUM 136 mmol/l (137-146); TOTAL PROTEIN 6.6 g/dL (6.3-8.2)
[2018-08-05 01:15] LABS: CARBON DIOXIDE 25 mmol/l (22-30)
[2018-08-05] MEDS ORDERED: ULTRAM50 M1 PO (03:39)
[2018-08-05 03:50] VITALS: BP 176/92
== END 2018-08-05 03:50 | disposition home or self-care (01) ==
LOC: ED 22:51
PROVIDERS: Emergency Medicine
DX: S20.212A Contusion of left front wall of thorax, initial encounter (principal); W18.30XA Fall on same level, unspecified, initial encounter; Y93.H9 Activity, other involving exterior property and land maintenance, building and construction; Y92.007 Garden or yard of unspecified non-institutional (private) residence as the place of occurrence of the external cause

== ENCOUNTER 2019-01-16 19:39 | Emergency (ER) | payer MEDICARE, OTHER ==
[~2019-01-16] VITALS: Ht 177.8 cm; Wt 100.0 kg
[~2019-01-16 19:39] MED LIST changes: -VENTOLIN HF1 IN
[2019-01-16] MEDS ORDERED: PREDNISONE20 MG PO (20:56)
[2019-01-16] MEDS ORDERED: VISTARIL25 MG PO (20:56)
[2019-01-16 21:30] VITALS: BP 175/95
== END 2019-01-16 21:30 | disposition home or self-care (01) ==
LOC: ED 19:39
DX: L25.9 Unspecified contact dermatitis, unspecified cause (principal); E11.9 Type 2 diabetes mellitus without complications; I10 Essential (primary) hypertension; F17.210 Nicotine dependence, cigarettes, uncomplicated; Z79.4 Long term (current) use of insulin

== ENCOUNTER 2019-01-19 15:59 | Emergency (ER) | payer MEDICARE, OTHER ==
[~2019-01-19] VITALS: Ht 177.8 cm; Wt 87.7 kg
[~2019-01-19 15:59] MED LIST changes: +PREDNISONE20 MG PO; +VISTARIL25 MG PO
[2019-01-19] MEDS ORDERED: NABUMETONE500 MG PO (16:30)
[2019-01-19] MEDS ORDERED: AMITRIPTYLIN25 MG PO (16:30)
[2019-01-19] MEDS ORDERED: NOVOLOG MIX SC (16:32)
[2019-01-19 16:54] LABS: IMMATURE GRANULOCYTES 0.5 % (0.0-5.0); MEAN CELL VOLUME 81.1 fL CALC (80.0-100.0); MEAN CORPUSCULAR HGB 27.5 pG CALC (26.0-32.0); MEAN CORPUSCULAR HGB CONC 33.9 g/L CALC (32.0-36.0); NEUT# 7.6 thou/uL (2.00-7.15); RED BLOOD COUNT 5.93 mill/uL (4.20-5.60); RED CELL DISTRI WIDTH 13.2 % (11.5-15.5)
[2019-01-19 16:58] LABS: HEMATOCRIT 48.1 % (37.0-47.0); HEMOGLOBIN 16.3 g/dl (12.0-16.0)
[2019-01-19 17:13] LABS: ALBUMIN 4.2 g/dL (3.2-5.0); ALKALINE PHOSPHATASE 147 u/l (38-126); AMYLASE 62 u/l (30-110); BILIRUBIN, TOTAL 0.3 mg/dL (0.0-1.4); BUN 23 mg/dL (7-17); BUN/CREATININE RATIO 19 (12-20 (CALC)); CARBON DIOXIDE 27 mmol/l (22-30); CHLORIDE 99 mmol/l (95-108); CREATININE 1.2 mg/dL (0.5-1.0); GFR 50 ML/MIN (>=60 (CALC)); GFR FOR AFR.AMER. > 60 ML/MIN (>=60 (CALC)); LIPASE 106 u/l (23-300); SGOT/AST 22 u/l (14-36); SODIUM 140 mmol/l (137-146); TOTAL PROTEIN 7.4 g/dL (6.3-8.2)
[2019-01-19 17:14] LABS: ANION GAP 17 (6-22 (CALC)); POTASSIUM 2.9 mmol/l (3.5-5.1)
[2019-01-19 17:25] LABS: MYOGLOBIN 51 ng/mL (0 - 62)
[2019-01-19] MEDS ORDERED: LISINOPRIL20 MG PO (17:46)
[2019-01-19] MEDS ORDERED: POTASSIUM CHLO20 ME1 PO (17:46)
[2019-01-19 19:35] VITALS: BP 177/92
== END 2019-01-19 19:40 | disposition home or self-care (01) ==
LOC: ED 15:59
PROVIDERS: Family Medicine
DX: R07.89 Other chest pain (principal); F41.9 Anxiety disorder, unspecified; E87.6 Hypokalemia; I10 Essential (primary) hypertension; E11.9 Type 2 diabetes mellitus without complications; F17.200 Nicotine dependence, unspecified, uncomplicated; Z79.4 Long term (current) use of insulin

== ENCOUNTER 2019-09-17 | Emergency (ER) | payer MEDICARE, OTHER ==
[~2019-09-17] MED LIST changes: +AMITRIPTYLIN25 MG PO; +POTASSIUM CHLO20 ME1 PO
[2019-09-17] MEDS ORDERED: MOTRIN400 MG PO ×2 (12:43→14:00)
[2019-09-17] MEDS ORDERED: VOLTAREN1%GEL TOP ×2 (12:43→14:00)
== END 2019-09-17 14:20 | disposition home or self-care (01) ==
DX: S86.911A Strain of unspecified muscle(s) and tendon(s) at lower leg level, right leg, initial encounter (principal); I10 Essential (primary) hypertension; E11.9 Type 2 diabetes mellitus without complications; M25.9 Joint disorder, unspecified; F17.200 Nicotine dependence, unspecified, uncomplicated; X58.XXXA Exposure to other specified factors, initial encounter; Z79.4 Long term (current) use of insulin

== ENCOUNTER 2019-12-17 10:15 | Inpatient (IN) | payer MEDICARE, OTHER ==
[~2019-12-17] VITALS: Ht 177.8 cm; Wt 84.8 kg
[2019-12-17] VITALS (8 sets, daily range): BP systolic 133–203; BP diastolic 71–102
[~2019-12-17 10:15] MED LIST changes: +VOLTAREN1%GEL TOP
--- NOTE | 2019-12-17 10:15 | NUR ---
PATIENT TO ROOM 10 AMS COMBATIVE. MD AT BEDSIDE FOR EVAL
--- NOTE | 2019-12-17 10:22 | NUR ---
2 MG ATIVAN, IM TO RIGHT ARM GIVEN BY WILBERT GREGORIO RN.
--- NOTE | 2019-12-17 10:30 | NUR ---
IV SITE X 2 INITIATED. PT REMAINS COMBATIVE WITH STAFF. NOTIFIED.
[2019-12-17 10:42] LABS: HEMATOCRIT 49.6 % (37.0-47.0); HEMOGLOBIN 17.1 g/dl (12.0-16.0); IMMATURE GRANULOCYTES 0.6 % (0.0-5.0); MEAN CELL VOLUME 80.1 fL CALC (80.0-100.0); MEAN CORPUSCULAR HGB 27.6 pG CALC (26.0-32.0); MEAN CORPUSCULAR HGB CONC 34.5 g/dL CAL (32.0-36.0); NEUT# 17.82 thou/uL (2.00-7.15); RED BLOOD COUNT 6.19 mill/uL (4.20-5.60); RED CELL DISTRI WIDTH 13.2 % (11.5-15.5)
--- NOTE | 2019-12-17 10:45 | NUR ---
PUPILS +4 AND SLUGGISH AT THIS TIME. PT REMAINS IN SOFT RESTRAINTS TO THE UPPER EXTREMITIES.
--- NOTE | 2019-12-17 11:10 | NUR ---
UNABLE TO RECONCILE PATIENT MEDIATIONS DUE TO PT STATUS.
[2019-12-17 11:17] LABS: INTERNATIONAL NORMALIZED RATIO 0.9 RATIO (0.7-1.3); PROTHROMBIN TIME 9.6 SECONDS (9.0-12.5)
[2019-12-17 11:28] LABS: URINE BILIRUBIN - DIPSTICK NEGATIVE (NEGATIVE); URINE BLOOD DIPSTICK MODERATE (NEGATIVE); URINE COLOR YELLOW; URINE GLUCOSE - DIPSTICK >=1000 mg/dL (NEGATIVE); URINE KETONE TRACE mg/dL (NEGATIVE); URINE LEUK ESTERASE NEGATIVE (NEGATIVE); URINE NITRITE - DIPSTICK NEGATIVE (Negative); URINE PROTEIN - DIPSTICK >=300 mg/dL (NEG-TRACE); URINE UROBILINOGEN - DIPSTICK 0.2 E.U./dL (0.2)
[2019-12-17 11:36] LABS: URINE SQUAMOUS EPITHELIAL CELL FEW EPI/hpf (0-FEW)
[2019-12-17 11:40] LABS: ALBUMIN 3.6 g/dL (3.2-5.0); ALKALINE PHOSPHATASE 205 u/l (38-126); ANION GAP 13 (6-22 (CALC)); BUN 19 mg/dL (7-17); BUN/CREATININE RATIO 14 (12-20 (CALC)); CARBON DIOXIDE 30 mmol/l (22-30); CHLORIDE 94 mmol/l (95-108); CREATININE 1.3 mg/dL (0.5-1.0); ETHYL ALCOHOL 0 mg/dl (0-30); GFR 45 ML/MIN (>=60 (CALC)); GFR FOR AFR.AMER. 55 ML/MIN (>=60 (CALC)); POTASSIUM 3.2 mmol/l (3.5-5.1); SGOT/AST 36 u/l (14-36); SODIUM 134 mmol/l (137-146); TOTAL PROTEIN 6.7 g/dL (6.3-8.2)
[2019-12-17 11:47] LABS: BILIRUBIN, TOTAL 0.5 mg/dL (0.0-1.4)
--- NOTE | 2019-12-17 11:55 | NUR ---
COVID SWABBED CARDINE DRIP INITIATED AT 5 MG/HR INTO PATENT IV 252/130 BP
--- NOTE | 2019-12-17 12:31 | NUR ---
PT IS RESTING WITH EYES CLOSED, PT COMES IN AND OUT OF AGITATION. CONTINUED GCS OF 9. PARTIAL BILATERAL RESTRAINTS CONTINUED. +PMS AND TWO FINGER INDENTION BETWEEN RESTRAINTS AND SKIN.
--- NOTE | 2019-12-17 13:35 | NUR ---
PT CONTINUES TO BE UNCHANGED IN CONDITION. GCS 9. PT IS RESTING WITH EYES CLOSED AND OCCATINALLY HAS EPISODES OF AGITATION OR AGRESSION. PT ON CONTINUED OBSERBATION. BP DRIP INFUSING INTO PATENT IV
--- NOTE | 2019-12-17 14:35 | NUR ---
PT INCON AT CT. BED CHANGED. PT CONTINUES IN PARTIAL REST. CARDI DRIP CONTINUES TO BE INFUSED IN PATENT IV
--- NOTE | 2019-12-17 15:30 | NUR ---
RICHARDSON INSERTED. URINE YELLOW AND CLEAR. PT WAS INCONT 4 TIMES AND BED WAS CHANGED 4 TIMES. PT CONTINUES TO BE ALTERED AND HAS NOT CHANGED IN STATUS.
--- NOTE | 2019-12-17 16:30 | NUR ---
PT RESTING, CARDINE DRIP CONTINUES TO BE INFUSING AT 5 MG/HR. VITALS WNL. WILL CONTINUE TO MONTIOR. MOTHER CALLED FOR INFO ON DAUGHTER, LIMITED INFO LATA TO STATE THAT PT IS STABLE. WILL CONTINUE TO MONITOR.
--- NOTE | 2019-12-17 17:16 | NUR ---
CALLED ICU FOR REPORT, NURSE ASKS FOR A FEW MINS AND WILL CALL BACK
--- NOTE | 2019-12-17 17:35 | NUR ---
GAVE REPORT TO JAMILAH
--- NOTE | 2019-12-17 17:50 | NUR ---
PT TRANSPORTED TO ICU STABLE AND IN NO DISTRESS BY STRETCHER. CARE ASSUMED TO JAMILAH Admission Note Report Given to: Transported by: Wheelchair X Stretcher Transported with: X Nurse Transporter X Patent IV O2 X Supervisor Stripping Location: X ICU MS2
--- NOTE | 2019-12-17 18:05 | NUR ---
PT TO ICE VIA STRETCHER ACCOMPANIED BY ER NURSE. PT A MAX ASSIST X4 TO BED. PT IS RESPONSIVE ONLY TO PAINFUL STIMULI. PT HAS BILAT WRITE RESTRAINTS. RIGHT ORBITAL EDEMA NOTED. TEMP 101.2. BP ELEVATED. DR TATE NOTIFIED. NEW ORDERS RECEIVED. RESTRAINTS TO BILAT WRISTS IN PLACE. WILL CONTINUE TO MONITOR.
--- NOTE | 2019-12-17 19:00 | NUR ---
lying on lt side. eyes closed. nad. fashion journalist shows sinus tach hr 136. ward cath in place. urine clear yellow. walking boot cont to rle. fall precautions & bilat wrist rest cont. photos taken of neck, wrists, face & boot to rle. temp 102.0 ax. tylenol supp 650 (R), ice bags applied to bilat armpits & groin & fan on pt. lab here. blood drawn.
[2019-12-17 19:40] LABS: HEMATOCRIT 45.5 % (37.0-47.0); MEAN CELL VOLUME 80.1 fL CALC (80.0-100.0); MEAN CORPUSCULAR HGB 28.2 pG CALC (26.0-32.0); MEAN CORPUSCULAR HGB CONC 35.2 g/dL CAL (32.0-36.0); RED BLOOD COUNT 5.68 mill/uL (4.20-5.60)
[2019-12-17 19:45] LABS: CREATININE 1.4 mg/dL (0.5-1.0); POTASSIUM 3.2 mmol/l (3.5-5.1)
--- NOTE | 2019-12-17 20:00 | NUR ---
restless. does not follow commands. groundwater monitoring technician shows sinus tach.
--- NOTE | 2019-12-17 20:40 | NUR ---
dr bates notified of temp, tylenol supp, bc drawn, wbc & no order for abx.
--- NOTE | 2019-12-17 21:00 | NUR ---
dr bates called this public relations writer. orders rec'd. rle boot removed. photos taken. instructed this public relations writer to call family for history. alex lemos (mother) called. she said "i'll do the best i can." after lengthy phone call pts history was obtained.
--- NOTE | 2019-12-17 22:25 | NUR ---
restless. does not follow commands. ativan 1mg ivp given.
--- NOTE | 2019-12-17 23:30 | NUR ---
[id number] dr iqbal called this group underwriter. updated on pts condition. pt remains restless. ativan gtt began as ordered.
[2019-12-18] VITALS (23 sets, daily range): BP systolic 126–180; BP diastolic 70–95
--- NOTE | 2019-12-18 02:00 | NUR ---
pt calm @ present. assisted x4 onto stretcher for ct. pt became restless on ct table. unable to complete ct.
--- NOTE | 2019-12-18 05:50 | NUR ---
pt calm @ present. to ct per bed.
--- NOTE | 2019-12-18 06:15 | NUR ---
returned from ct.
[2019-12-18 06:27] LABS: HEMATOCRIT 46.1 % (37.0-47.0); HEMOGLOBIN 15.8 g/dl (12.0-16.0); IMMATURE GRANULOCYTES 1.1 % (0.0-5.0); MEAN CELL VOLUME 80.5 fL CALC (80.0-100.0); MEAN CORPUSCULAR HGB 27.6 pG CALC (26.0-32.0); MEAN CORPUSCULAR HGB CONC 34.3 g/dL CAL (32.0-36.0); PLATELET COUNT 619 thou/uL (130-400); RED BLOOD COUNT 5.73 mill/uL (4.20-5.60); RED CELL DISTRI WIDTH 13.2 % (11.5-15.5)
[2019-12-18 06:48] LABS: ALBUMIN 3.2 g/dL (3.2-5.0); C-REACTIVE PROTEIN 4.1 mg/dL (0-0.9); CHOLESTEROL HDL RATIO 5.4 (<4.4 (CALC)); CREATININE 1.6 mg/dL (0.5-1.0); MAGNESIUM 1.6 mg/dL (1.6-2.3); POTASSIUM 3.4 mmol/l (3.5-5.1); TOTAL PROTEIN 6.1 g/dL (6.3-8.2)
[2019-12-18 06:50] LABS: BILIRUBIN, TOTAL 0.8 mg/dL (0.0-1.4)
--- NOTE | 2019-12-18 06:55 | NUR ---
REPORT RECEIVED FROM OUTGOING NURSE, PT IN BED, SEDATED WITH 2MG IV ATIVAN, CARDENE GTT AT 10MG/HR.
[2019-12-18 06:59] LABS: MANUAL DIFFERENTIAL YES
[2019-12-18 07:14] LABS: PLATELET ESTIMATE MOD INCREASE
--- NOTE | 2019-12-18 07:37 | NUR ---
DR TATE NOTIFIED OF WBC 30.5 AND PLT 619.
--- NOTE | 2019-12-18 08:00 | NUR ---
ATIVAN GTT TITRATED TO 8ML/HR OR 1.6MG/HR, PER DR TATE
[2019-12-18] MEDS ORDERED: NIFEDIPINE ER90 MG PO (09:16)
[2019-12-18] MEDS ORDERED: LORTAB 1010 MG PO (09:17)
[2019-12-18] MEDS ORDERED: CLONIDINE0.2 MG PO (09:17)
[2019-12-18] MEDS ORDERED: CYCLOBENZAPRINE10 MG PO (09:18)
[2019-12-18] MEDS ORDERED: NOVOLOG100 UNIT/M SC ×2 (09:19→10:25)
[2019-12-18] MEDS ORDERED: ATORVASTATIN CA80 MG PO (09:20)
[2019-12-18] MEDS ORDERED: TOPAMAX200 M1 PO (09:20)
--- NOTE | 2019-12-18 09:20 | NUR ---
DR CARPIO AT BEDSIDE FOR FEMORAL LINE PLACEMENT. UNSUCCESSFUL AT THIS TIME. PT HAS 2 IV SITES, A 22G LEFT WRIST AND A 20G RAC WITH MEDS INFUSING.
--- NOTE | 2019-12-18 09:20 | NUR ---
4MG VERSED IV ONE TIME DOSE GIVEN FOR AGGITATION DURING AN INVASIVE PROCEDURE, FEMORAL LINE PLACEMENT. LINE PLACEMENT UNSUCCESSFUL AT THIS TIME.
[2019-12-18] MEDS ORDERED: AMITRIPTYLIN50 MG PO (09:21)
[2019-12-18] MEDS ORDERED: FENOFIBRATE145 MG PO (09:21)
--- NOTE | 2019-12-18 09:22 | NUR ---
NO MED REC COMPLETED IN ED. PT IS NOW SEDATED, ENTERED MEDS FROM CLAIM HISTORY. WILL FOLLOW UP WITH [facility] WHEN THEY OPEN @ 10.
[2019-12-18] MEDS ORDERED: TRESIBA FL200 UNIT/M SC (10:25)
--- NOTE | 2019-12-18 13:30 | NUR ---
NG TUBE PLACED, AUSCULTATED BY SECOND RN AT BEDSIDE. GASTRIC CONTENTS OBSERVED BUT INSUFFICIENT FOR A SAMPLE AT THIS TIME. LACTULOSE GIVEN PER MD ORDER.
--- NOTE | 2019-12-18 15:30 | NUR ---
PT ASSESSED, STILL UNRESPONSIVE, WITHDRAWS TO PAINFUL STIMULI, AFEBRILE TEMP OF 98.7 AXILLARY. SEDATION OFF, CARDENE GTT AT 10MG/HR, HEART RATE IN THE 110-120.
--- NOTE | 2019-12-18 18:00 | NUR ---
REPOSITIONED PT IN BED. ASSESSMENT UNCHANGED AT THIS TIME. LACTULOSE VIA NG TUBE. NO BM YET.
--- NOTE | 2019-12-18 19:10 | NUR ---
eyes closed. no response to verbal stimuli. o2 cont per nc. satellite project site monitor shows sinus tach hr 121. #22 lt hand saline lock. #20 rac ns infusing @ 10cchr, cardene gtt infusing @ 10mg/hr. ng tube in place & remains clamped. ward cath in place. urine cloudy yellow. bilat arms edematous-elevated on pillows. turned & repositioned. requires total care for all needs.
--- NOTE | 2019-12-18 22:00 | NUR ---
eyes closed. no acute distress. o2 cont. salvage determiner shows sinus tach hr 114.
[2019-12-19] VITALS (27 sets, daily range): BP systolic 134–181; BP diastolic 62–86
--- NOTE | 2019-12-19 00:01 | NUR ---
arouses somewhat to verbal & physical stimuli. does not focus on this typewriter assembler.
--- NOTE | 2019-12-19 02:00 | NUR ---
encouraged pt with physical & verbal stimuli. eyes open then returns to sleep. does not focus on this ghost writer.
--- NOTE | 2019-12-19 05:10 | NUR ---
blood drawn & sent to lab.
[2019-12-19 05:37] LABS: HEMATOCRIT 41.6 % (37.0-47.0); IMMATURE GRANULOCYTES 1.6 % (0.0-5.0); MEAN CELL VOLUME 83.9 fL CALC (80.0-100.0); MEAN CORPUSCULAR HGB 27.8 pG CALC (26.0-32.0); MEAN CORPUSCULAR HGB CONC 33.2 g/dL CAL (32.0-36.0); RED BLOOD COUNT 4.96 mill/uL (4.20-5.60); RED CELL DISTRI WIDTH 13.8 % (11.5-15.5)
--- NOTE | 2019-12-19 05:45 | NUR ---
incont of stool. bath & bed change x2 assists.
[2019-12-19 05:58] LABS: ALBUMIN 2.7 g/dL (3.2-5.0); BILIRUBIN, TOTAL 0.7 mg/dL (0.0-1.4); CREATININE 1.8 mg/dL (0.5-1.0); POTASSIUM 3.5 mmol/l (3.5-5.1); TOTAL PROTEIN 5.2 g/dL (6.3-8.2)
[2019-12-19 06:03] LABS: HEMOGLOBIN 13.8 g/dl (12.0-16.0); PLATELET COUNT 569 thou/uL (130-400)
[2019-12-19 06:04] LABS: MANUAL DIFFERENTIAL YES
[2019-12-19 06:08] LABS: BAND 4 % (0-8)
--- NOTE | 2019-12-19 06:10 | NUR ---
found ngt out. #16 inserted rt nare without diff.
--- NOTE | 2019-12-19 06:45 | NUR ---
REPORT RECEIVED FROM DAVID MARIANO. CARE ASSUMED.
--- NOTE | 2019-12-19 07:20 | NUR ---
PT RESTING IN BED WITH EYES CLOSED AT THIS TIME. PT AROUSES TO VERBAL STIMULI. PT ABLE TO STATE NAME OF ZULEMA WHEN ASKED LAST NAME SHE KEEPS REPEATING ZULEMA. WHEN ASKED SHE STATES 11 [address] KEE[address] REPEATING 12. DR TATE NOTIFIED OF FINDINGS. IV PATENT X2. CALL LIGHT IN REACH. WILL CONTINUE TO MONITOR.
--- NOTE | 2019-12-19 08:32 | NUR ---
#22 STARTED IN RIGHT WRIST X1 ATTEMPT. VANCO TROUGH OBTAINED AT THIS TIME. MICHAEL SWITCHED TO THIS SITE DUE TO AC SITE BEING POSITIONAL WHEN PATIENT BENDS ARM.
--- NOTE | 2019-12-19 08:34 | NUR ---
MOTHER PHONED FOR UPDATE. UPDATE PROVIDED.
--- NOTE | 2019-12-19 09:00 | NUR ---
DR TATE AT BEDSIDE AT THIS TIME.
--- NOTE | 2019-12-19 09:15 | NUR ---
PT VOMITTED LARGE AMOUNT OF EMESIS IN BED. PT CLEANSED LINENS CHANGED. NG TO LIS. DR ANTON NOTIFIED. ID CONSULT COMPLETED WITH DR BALDWIN. SPOKE WITH ANESTHESIA REFERENCE LP.
--- NOTE | 2019-12-19 09:53 | NUR ---
VANCOMYCIN ORDERED FOR PHARMACY TO DOSE. PT HAS BEEN RECEIVING 1G IV Q12H WITH GOAL TROUGH 15-20 MCG/ML. TROUGH TODAY ~50 MIN B4 4TH DOSE WAS 19 MCG/ML. CONTINUE WITH SAME DOSE. RE-CHECK TROUGH TOMORROW @ 2029. PHARMACY WILL CONTINUE TO FOLLOW.
[2019-12-19 09:58] LABS: AMYLASE < 30 u/l (30-110); LIPASE 32 u/l (23-300)
--- NOTE | 2019-12-19 10:15 | NUR ---
CASEY AND PANCHO LIN AT BEDSIDE FOR LUMBAR PUNCTURE. OPENING PRESSURE [address] TATE NOTIFIED
--- NOTE | 2019-12-19 11:30 | NUR ---
PT HAD PULLED OUT NG TUBE. THIS NURSE REPLACED NG TUBE TO RIGHT NARE X1 ATTEMPT. VERIFIED WITH AUSCULTATION. PLACED TO LIS WITH POSITIVE GASTRIC CONTENT RETURN. PT TOLERATED WELL.
--- NOTE | 2019-12-19 12:00 | NUR ---
PT RESTING IN BED AT THIS TIME. VSS ON MONITOR. PT REMAINS RESPONSIVE TO VERBAL STIMULI. ORIENTED TO FIRST NAME ONLY. WILL CONTINUE TO CLOSELY MONITOR.
--- NOTE | 2019-12-19 12:39 | NUR ---
DR NAYAK AT BEDSIDE TO EVALUATE PATIENT.
--- NOTE | 2019-12-19 13:30 | NUR ---
PHONED MOTHER VIKTOR TO ASK FOR EVENTS LEADING UP TO PT COMING TO HOSPITAL. MOTHER STATES THAT PATIENT WAS NORMAL ON THURSDAY AND WAS GOING HOME TO TAKE PAIN MEDICATION AND LAY DOWN IN THE LATE AFTERNOON. THE NEXT MORNING SHE RECEIVED A CALL FROM PTS DAUGHTER STATING THAT SHE COULD NOT GET MOTHER UP. GRANDMOTHER ARRIVED AND PT WAS PUKING AND HURT ALL OVER AND CRYING AND THE PTS MOTHER COULD NOT MAKE OUT WHAT THE PATIENT WAS SAYING. ASKED IF THE PATIENT HAS A HISTORY OF DRUG USE. MOTHER DENIED. STATES THAT DAUGHTER IS NON COMPLIANT WITH HTN MEDS AND DIABETIC MEDS. Dennis MARTINEZ APRN AND DR TATE NOTIFIED.
--- NOTE | 2019-12-19 14:51 | NUR ---
PT RESTING IN BED WITH EYES CLOSED. RESP ARE EVEN AND UNLABORED. NO DISTRESS NOTED. VSS ON MONITOR. WILL CONTINUE TO MONITOR
--- NOTE | 2019-12-19 15:11 | NUR ---
PT READJUSTED IN BED. PT MOANS UPON TURNING. PT OPENS EYES. PT DOES NOT VERBALLY RESPOND THIS TIME. WILL CONTINUE TO MONITOR.
--- NOTE | 2019-12-19 16:39 | NUR ---
PT RESTING IN BED AWAKE. PT ABLE TO STATE NAME ZULEMA. PT STATES 11. PT ABLE TO STATE AGE. PT STATES THAT SHE IS IN THE HOSPITAL. PT STATES THAT HER MOM'S NAME IS VIKTOR. SPEECH IS NOT GARBLED. SEEMS TO BE CLEARING. PT IS ABLE TO FOLLOW SOME SIMPLE COMMANDS. DR TATE NOTIFIED OF FINDINGS ORDERS RECIEVED TO DC NG. DC RESTRAINTS AND TITRATE CARDENE AND DC LACTULOSE. ALL ORDERS CARRIED OUT. ALSO PLACED PT ON CLEAR LIQUID DIABETIC DIET. WILL CONTINUE TO MONITOR.
--- NOTE | 2019-12-19 16:45 | NUR ---
RESTRAINTS REMOVED AT THIS TIME. MICHAEL STRINGER TITRATED PER TITRATION CHARTING.
--- NOTE | 2019-12-19 18:00 | NUR ---
PT SET UP FOR PM MEAL
--- NOTE | 2019-12-19 18:25 | NUR ---
PT ABLE TO FOLLOW COMMANDS PT ATE ALL OF CLEAR LIQUIDS WITHOUT DIFFICULTY. CALL LIGHT IN REACH. WILL CONTINUE TO MONIOTR.
--- NOTE | 2019-12-19 19:00 | NUR ---
NICARDIPINE GTT DECREASED TO 5MG/HR. B/P 173/74 PT AWAKE, ORIENTED TO SELF ONLY. CALL SHANKAR IN REACH.
[2019-12-19 20:41] LABS: URINE BILIRUBIN - DIPSTICK NEGATIVE (NEGATIVE); URINE BLOOD DIPSTICK SMALL (NEGATIVE); URINE CLARITY CLEAR; URINE COLOR YELLOW; URINE GLUCOSE - DIPSTICK 500 mg/dL (NEGATIVE); URINE KETONE NEGATIVE (NEGATIVE); URINE LEUK ESTERASE NEGATIVE (Negative); URINE NITRITE - DIPSTICK NEGATIVE (Negative); URINE PROTEIN - DIPSTICK >=300 mg/dL (NEG-TRACE); URINE SPECIFIC GRAVITY 1.025; URINE UROBILINOGEN - DIPSTICK 0.2 E.U./dL (0.2)
[2019-12-19 20:52] LABS: URINE SQUAMOUS EPITHELIAL CELL FEW EPI/hpf (0-FEW); URINE WBC 0-2 WBC/hpf (0-5); URINE YEAST FEW hpf
--- NOTE | 2019-12-19 21:00 | NUR ---
PT OUT OF BED, LIQUID DIARRHEA ON BED, FLOOR. PT PULLING ON ALL IV'S. ASISTED TO TOILET. PT VOMITED PINK GELATIN LIKE SUBSTANCE.
--- NOTE | 2019-12-19 21:00 | NUR ---
PT PULLED OUT RICHARDSON CATH WITH BALLOON INFLATED.
--- NOTE | 2019-12-19 21:20 | NUR ---
LINENS CHANGED, PT CLEANED, RETURNED TO BED. R WRIST, R AC IV SITE NOT FLUSHING AT THIS TIME.
--- NOTE | 2019-12-19 22:00 | NUR ---
R WRIST IV FLUSHED, R AC IV SITE D/C'D. PT REMAINS ORINETED TO SELF ONLY. EDEMA NOTED TO HANDS, ARMS BILAT.
--- NOTE | 2019-12-19 23:00 | NUR ---
PT REQUESTED MED FOR SLEEP.
--- NOTE | 2019-12-19 23:18 | NUR ---
B/P 141/73 NICARDIPINE GTT DECREASED TO 2.5MG/HR
--- NOTE | 2019-12-19 23:33 | NUR ---
L HAND INCREASE IN SWELLING NOTED. IV FLUIDS STOPPED.
--- NOTE | 2019-12-19 23:45 | NUR ---
WARM COMPRESS APPLIED TO L HAND.
[2019-12-20] VITALS (13 sets, daily range): BP systolic 123–198; BP diastolic 63–84
--- NOTE | 2019-12-20 00:15 | NUR ---
NICARDIPINE GTT OFF. [employer] B/P REACHED.
--- NOTE | 2019-12-20 00:29 | NUR ---
MULTIPLE ATTEMPTS FOR IV ACCESS BY STAFF. UNABLE TO OBTAIN SECOND SITE AT THIS TIME.
--- NOTE | 2019-12-20 01:21 | NUR ---
PT PULLING AT R WRIST IV SITE. ABLE TO RETPE AND FLUSH SITE. INFORMED PT NOT TO PULL AT OR REMOVE HER IV'S.
--- NOTE | 2019-12-20 02:00 | NUR ---
PT WITH EYES CLOSED, OPENS WHEN RN ENTERING ROOM. IV INFUSING TO R WRIST SITE. PT REMAINS ORIENTED TO SELF ONLY. CALL SHANKAR IN REACH.
--- NOTE | 2019-12-20 04:15 | NUR ---
PT REQUESTED [facility]. PROVIDED.
--- NOTE | 2019-12-20 04:45 | NUR ---
PT VOMITED APPROX 200ML OF YELLOW EMESIS.
--- NOTE | 2019-12-20 05:00 | NUR ---
MEDICATED PER MAR FOR N/V. PT ORIENTED TO PERSON AND PLACE, PT APPEARS TO BE A LITTLE CLEARER, NOW KNOWING WHERE SHE IS AND WHERE SHE LIVES. DOES NOT RECALL WHY SHE IS HERE.
[2019-12-20 05:19] LABS: HEMATOCRIT 39.2 % (37.0-47.0); IMMATURE GRANULOCYTES 0.9 % (0.0-5.0); MEAN CELL VOLUME 83.8 fL CALC (80.0-100.0); MEAN CORPUSCULAR HGB 27.8 pG CALC (26.0-32.0); MEAN CORPUSCULAR HGB CONC 33.2 g/dL CAL (32.0-36.0); NEUT# 24.71 thou/uL (2.00-7.15); RED BLOOD COUNT 4.68 mill/uL (4.20-5.60); RED CELL DISTRI WIDTH 13.6 % (11.5-15.5)
[2019-12-20 05:29] LABS: ALBUMIN 2.6 g/dL (3.2-5.0); CREATININE 1.9 mg/dL (0.5-1.0); POTASSIUM 3.2 mmol/l (3.5-5.1)
--- NOTE | 2019-12-20 06:04 | NUR ---
PT PULLING AT RW IV SITE DRESSING. INFORMED PT NOT TO PULL AT OR REMOVE IV SITE.
--- NOTE | 2019-12-20 06:20 | NUR ---
BEDPAN OFFERED TO PT, REFUSED.
--- NOTE | 2019-12-20 06:22 | NUR ---
PT ATTEMPTING TO GET OUT OF BED. INFORMED PT SHE NEEDS TO STAY IN BED, AND USE THE CALL LIGHT. HANDED CALL LIGHT TO PT.
--- NOTE | 2019-12-20 07:00 | NUR ---
REPORT RECEIVED FROM OUTGOING NURSE, PT IN BED SLEEPING AT THIS TIME.
--- NOTE | 2019-12-20 07:02 | NUR ---
REPORT TO ZAYNAB MEDINA.
--- NOTE | 2019-12-20 07:29 | NUR ---
DR EDMONDSON @BEDSIDE FOR CENTRAL LINE.
--- NOTE | 2019-12-20 07:50 | NUR ---
TRIPLE FEMORAL LINE PLACED BY DR EDMONDSON.
--- NOTE | 2019-12-20 08:00 | NUR ---
PT ASSESSED, ALERT TO SELF AND PLACE BUT STILL CONFUSED TO THE SITUATION THAT BROUGHT HER TO HOSPITAL. MOVES ALL EXTREMITIES, AFEBRILE, STATES SHE IS HUNGRY, STARTING WITH ICE CHIPS AND ADVANCING TOLERATED. SEE PROCESS INTERVENTIONS FOR FULL ASSESSMENT.
--- NOTE | 2019-12-20 08:22 | NUR ---
RADIOLOGY @BEDSIDE REQUEST UPREG BEFORE XRAY. ORDER PLACED.
--- NOTE | 2019-12-20 09:20 | NUR ---
MOTHER CALLED BACK FOR UPDATE, SPOKE WITH DR TATE, THEN PASSED TO PT ON PORTABLE UNIT PHONE
--- NOTE | 2019-12-20 09:36 | NUR ---
ENTERED ROOM WHEN BED ALARMED. PT STATED SHE HAD TO GO TO THE BATHROOM; PT TRING TO REMOVED O2 & MONITORING EQUIPMENT. PT ASSISTED BY HER NURSE TO BSC. LINENS CHANGED.
--- NOTE | 2019-12-20 10:09 | NUR ---
Patient is screened for PT intervention 12/19/19 She has no needs at this time but may need intervention in the near future. We will await medical stabilization etc.
--- NOTE | 2019-12-20 10:22 | NUR ---
SPOKE WITH DR EDMONDSON IN ER, RE: CENTRAL LINE PLACEMENT RESULTS ON PELVIC XRAY. PER MD, SITE GOOD TO USE.
--- NOTE | 2019-12-20 10:30 | NUR ---
CARDENE RESTARTED AT 5MG/HR PER ORDERED BP PARAMETER. BP 193/84 HR 104. WILL CONTINUE TO MONITOR.
--- NOTE | 2019-12-20 11:45 | NUR ---
PT BED ALARMING, OUT OF BED. PT UP TO BEDSIDE COMMODE AND BACK TO BED. ALARM BACK ON. REENFORCED CALL LIGHT USE AND SAFETY PRECAUTIONS TO AVOID FALLS. BED IN LOW POSITION AND CALL LIGHT WITHIN REACH.
--- NOTE | 2019-12-20 12:00 | NUR ---
PT RESTING IN BED, ALERT TO SELF AND PLACE ONLY AT THIS TIME. PT MOVES ALL EXTREMITIES, LUNCH AT BEDSIDE. SEE PROCESS INTERVENTIONS FOR FULL ASSESSMENT.
--- NOTE | 2019-12-20 13:00 | NUR ---
PT SCREAMING FOR WATER, WATER PITCHER TAKEN IN TO PT, PT STILL EATING LUNCH.
--- NOTE | 2019-12-20 13:15 | NUR ---
PT MOTHER CALLED, I UPDATED HER WITH PT STATUS. SHE SAID SHE WOULD CALL BACK THIS EVENING SO PT CAN SPEAK TO HER DAUGHTER.
--- NOTE | 2019-12-20 14:00 | NUR ---
PT IN BED WATCHING TV, purewick placed for patient comfort, rt ankle fracture.
--- NOTE | 2019-12-20 14:05 | NUR ---
MICHAEL GTT AT 5MG/HR EFFECTIVE, PT BP DECREASED- 164/73 AT THIS TIME, WILL CONTINUE TO MONITOR.
--- NOTE | 2019-12-20 16:50 | NUR ---
PT HAS NOT URINATED SINCE 1200, PT BLADDER SCANNED- 443ML AT THIS TIME. PT DOES NOT NEED TO URINATE, PT DENIES DISCOMFORT AT THIS TIME. WILL CONTINUE TO MONITOR. DR TATE NOTIFIED.
--- NOTE | 2019-12-20 18:00 | NUR ---
DR TATE ORDER TO PLACE RICHARDSON IF PT UNABLE TO VOID BY 1999. PT IN BEDWATCHING TV, DENIES DISCOMFORT OR URGE TO URINATE AT THIS TIME. PUREWICK IN PLACE.
--- NOTE | 2019-12-20 18:50 | NUR ---
RECEIVED REPORT FROM THI MEDINA.
--- NOTE | 2019-12-20 20:17 | NUR ---
PT REMOVED MONITORING CABLES. REATTACHED, INFORMED PT TO KEEP THEM ON.
--- NOTE | 2019-12-20 20:21 | NUR ---
R FEMEROL TRIPLE LUMEN LEAKING AT SITE.
--- NOTE | 2019-12-20 22:00 | NUR ---
PT REMOVED 02 AND SA02 MONITOR. REPLACED INFORMED PT TO LEAVE ON.
--- NOTE | 2019-12-20 22:35 | NUR ---
PT REFUSED RICHARDSON CATH.
--- NOTE | 2019-12-20 22:39 | NUR ---
PT TPLACED ON BEDPAN BY DAMIAN MEDINA. PT VOIDED 300CC
--- NOTE | 2019-12-20 23:10 | NUR ---
PT CONTINUES TO REMOVE 02 NC. INFORMED PT TO KEEP ON.
[2019-12-21] VITALS (10 sets, daily range): BP systolic 140–188; BP diastolic 69–94
--- NOTE | 2019-12-21 | NUR ---
PT WITH EYES CLOSED AT THIS TIME. NO DISTRESS NOTED. CALL SHANKAR IN REACH.
--- NOTE | 2019-12-21 02:00 | NUR ---
PT WITH EYES CLOSED, RESPONDS TO VERBAL STIMULI. NASAL CANULA PLACED BACK ON PT. CALL SHANKAR IN REACH.
--- NOTE | 2019-12-21 02:40 | NUR ---
ACCU CHECK 54. SKIN MOIST. PT AWAKE AND ALERT. PT STATED SHE WAS HUNGRY. OJ X2, TURKEY SANDWICH, NAFISA CRACKER X2 PROVIDED.
--- NOTE | 2019-12-21 03:15 | NUR ---
BLISTER NOTED TO TOP OF L HAND.
--- NOTE | 2019-12-21 03:45 | NUR ---
REPEAT ACCU CHECK 120. SKIN WARM AND DRY. PT AWAKE AND ALERT. CALL SHANKAR IN REACH.
--- NOTE | 2019-12-21 05:16 | NUR ---
R FEMEROL TRIPLE LUMEN DRESSING CHANGED. PORTS FLUSHED.
[2019-12-21 05:32] LABS: HEMATOCRIT 38.5 % (37.0-47.0); HEMOGLOBIN 12.7 g/dl (12.0-16.0); MEAN CELL VOLUME 83.9 fL CALC (80.0-100.0); MEAN CORPUSCULAR HGB 27.7 pG CALC (26.0-32.0); RED BLOOD COUNT 4.59 mill/uL (4.20-5.60); RED CELL DISTRI WIDTH 13.2 % (11.5-15.5)
[2019-12-21 05:48] LABS: ALBUMIN 2.4 g/dL (3.2-5.0); CREATININE 1.9 mg/dL (0.5-1.0); POTASSIUM 3.6 mmol/l (3.5-5.1)
--- NOTE | 2019-12-21 06:00 | NUR ---
PT WITH EYES CLOSED LYING ON R SIDE. CALL SHANKAR IN REACH.
--- NOTE | 2019-12-21 07:07 | NUR ---
REPORT TO ZAYNAB MEDINA.
--- NOTE | 2019-12-21 08:00 | NUR ---
PT ASSESSED, ALERT TO SELF, STILL CONFUSED. MOVES ALL EXTREMITIES, AFEBRILE. UP TO BEDSIDE COMMODE THIS AM, SWIVELS WELL WITH 1X ASSIST. REPOSITIONS AND TURNS SELF IN BED, PT STATES SHE WANTS TO GO HOME. URINATED ON BEDSIDE COMMODE- 800ML OUT. SEE PROCESS INTERVENTIONS FOR FULL ASSESSMENT.
--- NOTE | 2019-12-21 09:00 | NUR ---
PT BLOOD SUGAR LOW OVERNIGHT, BG [address] THIS AM. SPOKE TO DR TATE AND HOLDING THE 35 UNITS OF LEVEMIR FOR NOW.
--- NOTE | 2019-12-21 09:20 | NUR ---
DR TATE AT BEDSIDE ASSESSING PT, PT OK TO TRANSFER TO [facility].
--- NOTE | 2019-12-21 10:00 | NUR ---
PT RESTING IN BED, DENIES PAIN OR DISCOMFORT AT THIS TIME. WILL CONTINUE TO MONITOR.
--- NOTE | 2019-12-21 10:15 | NUR ---
[facility] CALLED FOR BED.
--- NOTE | 2019-12-21 11:15 | NUR ---
ACCUCHECK BG 66, ORANGE JUICE GIVEN TO PATIENT.
--- NOTE | 2019-12-21 11:30 | NUR ---
PATIENT UP TO BSC, SWIVELS, UNSTEADY GATE. LUNCH AT BEDSIDE.
--- NOTE | 2019-12-21 12:37 | NUR ---
DR SALAZAR IN TO SEE PT, NO CHANGES AT THIS TIME.
--- NOTE | 2019-12-21 13:15 | NUR ---
PT ARRIVED FROM ICU VIA BED ,WITH IV SITE INTACT AND MEDICATION
--- NOTE | 2019-12-21 13:20 | NUR ---
PT PRESENTS WITH MENINGITIS. VANCOMYCIN ORDERED FOR PHARMACY TO DOSE. GOAL TROUGH = 15-20 MCG/ML. PT HAD BEEN RECEIVING VANCOMYCIN 750MG IV Q12H. TROUGH TODAY 30 MIN B4 4TH DOSE = 29. DOSE DECREASED TO 750MG IV Q24H. PT RECEIVED DOSE OF 750MG IV THIS MORNING PRIOR TO TROUGH RESULTS, ORDERING TROUGH FOR TOMORROW AM BEFORE DOSE GIVEN TO ENSURE PT IS CLEARING SUFFICIENTLY. ASSUMING TROUGH IS WNL, WILL CONTINUE VANCO 750MG IV Q24H AND RE CHECK TROUGH B4 4TH DOSE ON 12/23 @ 0830. PHARMACY WILL CONTINUE TO FOLLOW.
--- NOTE | 2019-12-21 14:34 | NUR ---
PT HAD LOVENOX TODAY WILL HOLD PER DR NAYAK. FOR BIOPSY TO BE SCHEDULED TOMORROW.
--- NOTE | 2019-12-21 14:37 | NUR ---
JODY INFORMED THIS PROGRAM PRODUCTION SPECIALIST THAT SHANIA HAS LEFT FOR TODAY. PROCEDURE CAN BE DONE TOMORROW PER .
--- NOTE | 2019-12-21 16:00 | NUR ---
pt has been resting in bed with no distress noted. iv site is free from redness or edema. ambulating to the bsc. with stand by assist. continue to osberve and monitor.
--- NOTE | 2019-12-21 18:48 | NUR ---
PT WAS SITTING IN THE CHAIR, AND THEN WANTED TO GET BACK TO BED. ABLE TO TRANSFER WITH STAND BY ASSIST.
--- NOTE | 2019-12-21 21:20 | NUR ---
PT W/ 150ML EMESIS, APPEARS TO CONSIST OF PARTIALLY CHEWED FOOD. GINGERALE AND SALTINE CRACKERS PROVIDED. PT REPORTS RESOLUTION OF NAUSEA AND TOLERATED GINGERALE/SALTINES.
--- NOTE | 2019-12-22 02:00 | NUR ---
PT C/O DIZZINESS TO TETRYL WRINGER OPERATOR WHEN BEING ASSISTED UP TO BSC TO VOID. ACCUCHECK 65mg/dl. PT PROVIDED W/ SNACK. PT CONSUMED 100% PROVIDED SNACK. SYMPTOMS RESOLVED. PT UP TP VOID AND BACK TO BED.
[2019-12-22 03:50] VITALS: BP 166/83
--- NOTE | 2019-12-22 04:38 | NUR ---
[facility] LABS DRAWN FROM [facility] CENTRAL LINE W/O INCIDENT.
[2019-12-22 05:26] LABS: HEMATOCRIT 39.1 % (37.0-47.0); HEMOGLOBIN 13.2 g/dl (12.0-16.0); MEAN CELL VOLUME 82.5 fL CALC (80.0-100.0); MEAN CORPUSCULAR HGB 27.8 pG CALC (26.0-32.0); MEAN CORPUSCULAR HGB CONC 33.8 g/dL CAL (32.0-36.0); RED BLOOD COUNT 4.74 mill/uL (4.20-5.60); RED CELL DISTRI WIDTH 13.1 % (11.5-15.5)
[2019-12-22 05:42] LABS: ALBUMIN 2.4 g/dL (3.2-5.0); CREATININE 1.8 mg/dL (0.5-1.0); POTASSIUM 3.4 mmol/l (3.5-5.1)
--- NOTE | 2019-12-22 06:07 | NUR ---
BY LAB WORK RESULTS GLUCOSE 63mg/dl, PT ASYMPTOMATIC. SNACK PROVIDED.
--- NOTE | 2019-12-22 10:16 | NUR ---
SPOKE TO JAGDISH IN PHARMACY IN REGARDS TO VACO TROUGH 22.
[2019-12-22 10:52] VITALS: BP 180/102
--- NOTE | 2019-12-22 11:26 | NUR ---
S: ZULEMA SO is a 39 F who presents with sepsis and acute encephalopathy. O: VS: BP 180/102, P 106, RR 20, T 98.5 Scr=1.8 Repeat vancomycin trough 12/21@0900=22; last dose of vancomycin 750 mg 12/20 at 0900 A: Preliminary Blood culture is no growth. CSF culture is no growth. P: Vancomycin ordered for pharmacy to dose. Start Vancomycin 750 mg IV Q24H. Will hold dose an additional 12 hours due to new trough level of 22. Vancomycin trough is drawn before the 4th dose on 12/24@2030. Vancomycin goal trough is between 15-20 mcg/ml. Pharmacy will follow and or advise on antibiotics use as needed.
[2019-12-22 12:18] VITALS: BP 189/112
--- NOTE | 2019-12-22 12:19 | NUR ---
BP 189/112 HR 105. NEVILLE MEDINA NOTIFIED TO GIVE APRESOLINE IV.
--- NOTE | 2019-12-22 13:05 | NUR ---
PER PT SHE SUFFERS FROM CHRONIC BACK PAIN AND SEES DR BARAHONA FOR PAIN MANAGEMENT. ANGELIKA BRENNAN NOTIFIED, PER ANGELIKA BRITTON WOULD BE NOTIFIED. AWAITING ORDERS FOR PAIN MEDICATION.
[2019-12-22 14:33] VITALS: BP 140/90
--- NOTE | 2019-12-22 14:33 | NUR ---
BP RE-EVALUATED : 140/90 AND HR 106. CLONIDONE 0.2 MG GIVEN
[2019-12-22 14:34] VITALS: BP 140/90
[2019-12-22] MEDS ORDERED: LOSARTAN POTASS50 MG PO (17:25)
--- NOTE | 2019-12-22 17:26 | NUR ---
SPOKE TO DR BRITTON IN REGARDS TO PT WISHING TO GO HOME. PER REBA HE WILL PUT IN DISCHARGE ORDERS. PT UPDATED
--- NOTE | 2019-12-22 18:16 | NUR ---
PER WINSOME PT ABLE TO BE D/C. REBA AGREED TO SIGN HH ORDERS. PER PT SHE IS OKAY WITH [facility].
--- NOTE | 2019-12-22 18:47 | NUR ---
RN NEVILLE IN ROOM TO D/C RIGHT FEMORAL CENTRAL LINE. PT TOLERATED WELL.
--- NOTE | 2019-12-22 19:13 | NUR ---
Discharge instructions given. Patient verbalizes understanding of same. Discharged in stable condition via Wheelchair to Home with mother. All belongings sent with pt.
--- NOTE | 2020-03-11 12:23 | NUR ---
MEDS IN PHARMACY SINCE 12/17/19. PER POLICY, DESTROY AFTER 30 DAYS. MEDS WERE DESTROYED TODAY.
== END 2019-12-22 19:12 | DRG 70 ==
LOC: ED 10:15 → ED-I 16:10 → ED 16:19 → ICU 16:20 → MS2 12-21 10:58 → ICU 12-21 10:58 → MS2 12-21 10:58
PROVIDERS: Internal Medicine Nephrology; Student in an Organized Health Care Education/Training Program; ADMIT Internal Medicine; ATTEND Internal Medicine
PROC: 0T9B70Z Drainage of Bladder with Drainage Device, Via Natural or Artificial Opening (ICD-10-PCS; principal; 2019-12-17)
PROC: 009U3ZX Drainage of Spinal Canal, Percutaneous Approach, Diagnostic (ICD-10-PCS; 2019-12-19)
PROC: 06HY33Z Insertion of Infusion Device into Lower Vein, Percutaneous Approach (ICD-10-PCS; 2019-12-20)
DX: G93.41 Metabolic encephalopathy (principal); E11.10 Type 2 diabetes mellitus with ketoacidosis without coma; N17.0 Acute kidney failure with tubular necrosis; I16.1 Hypertensive emergency; D72.823 Leukemoid reaction; I12.9 Hypertensive chronic kidney disease with stage 1 through stage 4 chronic kidney disease, or unspecified chronic kidney disease; E11.22 Type 2 diabetes mellitus with diabetic chronic kidney disease; N18.3 Chronic kidney disease, stage 3 (moderate); K29.70 Gastritis, unspecified, without bleeding; G93.9 Disorder of brain, unspecified; F17.210 Nicotine dependence, cigarettes, uncomplicated; F31.9 Bipolar disorder, unspecified; E83.39 Other disorders of phosphorus metabolism; T50.916A Underdosing of multiple unspecified drugs, medicaments and biological substances, initial encounter; Z91.128 Patient's intentional underdosing of medication regimen for other reason; Z79.4 Long term (current) use of insulin; Z20.828 Contact with and (suspected) exposure to other viral communicable diseases
CPT/HCPCS: J0133; J0692; J1650; J2060; J3370; Q3014; S0164

== ENCOUNTER 2020-01-16 16:33 | Emergency (ER) | payer MEDICARE, OTHER ==
[~2020-01-16] VITALS: Ht 177.8 cm; Wt 84.0 kg
[~2020-01-16 16:33] MED LIST changes: +AMITRIPTYLIN50 MG PO; +ATORVASTATIN CA80 MG PO; +CYCLOBENZAPRINE10 MG PO; +FENOFIBRATE145 MG PO; +LOSARTAN POTASS50 MG PO; +NIFEDIPINE ER90 MG PO; +TOPAMAX200 M1 PO
--- NOTE | 2020-01-16 16:35 | NUR ---
PT TO ROOM VIA WHEELCHAIR FOR BEDSIDE TRIAGE
--- NOTE | 2020-01-16 16:40 | NUR ---
PT KEEPS SAYING SHE FEELS LIKE A PAPER WEIGHT AND SHE JUST WANTS TO GO TO SLEEP. DAUGHTER AT BEDSIDE, WILL CONTINUE TO MONITOR.
--- NOTE | 2020-01-16 16:51 | NUR ---
STROKE ALERT CALLED,PT GETTING FRUSTATED WITH QUESTIONS AND STAFF ASKING ABOUT SENSATION WITH REGARD TO EXTREMETIES, ETC. ALL QUESTIONS ANSWERE. -
[2020-01-16 17:18] LABS: ALKALINE PHOSPHATASE 127 u/l (38-126); ANION GAP 10 (6-22 (CALC)); BUN 25 mg/dL (7-17); BUN/CREATININE RATIO 15 (12-20 (CALC)); CARBON DIOXIDE 23 mmol/l (22-30); CHLORIDE 105 mmol/l (95-108); CREATININE 1.7 mg/dL (0.5-1.0); GFR 33 ML/MIN (>=60 (CALC)); GFR FOR AFR.AMER. 40 ML/MIN (>=60 (CALC)); POTASSIUM 3.6 mmol/l (3.5-5.1); SGOT/AST 29 u/l (14-36); SODIUM 134 mmol/l (137-146)
[2020-01-16 17:25] LABS: IMMATURE GRANULOCYTES 0.6 % (0.0-5.0); MEAN CELL VOLUME 84.2 fL CALC (80.0-100.0); MEAN CORPUSCULAR HGB 27.5 pG CALC (26.0-32.0); MEAN CORPUSCULAR HGB CONC 32.7 g/dL CAL (32.0-36.0); NEUT# 7.79 thou/uL (2.00-7.15); RED BLOOD COUNT 5.45 mill/uL (4.20-5.60); RED CELL DISTRI WIDTH 13.3 % (11.5-15.5)
[2020-01-16 17:26] LABS: HEMATOCRIT 45.9 % (37.0-47.0)
[2020-01-16 17:31] LABS: ALBUMIN 3.8 g/dL (3.2-5.0); BILIRUBIN, TOTAL 0.2 mg/dL (0.0-1.4); TOTAL PROTEIN 6.7 g/dL (6.3-8.2)
--- NOTE | 2020-01-16 17:31 | NUR ---
PT TO CT NAD BACK CURRENTLY RESTING AT THIS TIME, DAUGHTER REMAINAS AT [facility], CALL.
[2020-01-16 17:42] LABS: PROTHROMBIN TIME 9.6 SECONDS (9.0-12.5)
--- NOTE | 2020-01-16 18:06 | NUR ---
PT OOB TO BSC WITH MIN ASSIST, TOLERATED ACTIVITY WELL URINE SPECIMEN OBTAINED AND SENT AND BACK T BED WITH SAME, CALL SHANKRA WITHIN REACH
[2020-01-16 18:07] LABS: URINE BILIRUBIN - DIPSTICK NEGATIVE (NEGATIVE); URINE BLOOD DIPSTICK TRACE-INTACT (NEGATIVE); URINE COLOR YELLOW; URINE GLUCOSE - DIPSTICK 250 mg/dL (NEGATIVE); URINE KETONE NEGATIVE (NEGATIVE); URINE LEUK ESTERASE NEGATIVE (NEGATIVE); URINE NITRITE - DIPSTICK NEGATIVE (Negative); URINE PH 6.5 (4.5-8.0); URINE PROTEIN - DIPSTICK >=300 mg/dL (NEG-TRACE); URINE SPECIFIC GRAVITY 1.025; URINE UROBILINOGEN - DIPSTICK 0.2 E.U./dL (0.2)
[2020-01-16 18:32] LABS: URINE RBC 0-2 RBC/hpf (0-5); URINE SQUAMOUS EPITHELIAL CELL FEW EPI/hpf (0-FEW); URINE WBC 0-2 WBC/hpf (0-5)
--- NOTE | 2020-01-16 18:44 | NUR ---
PT REFUSES TO BE ADMITTED, HAS BEEN DROWSY SINCE ARRIVAL WHEN THIS NURSE WENT INTO SEE PT SHE IS ALERT AND ORIENTED AND VERY CLEARLY STATES SHE DOES NOT WANT TO STAY SINCE WE CANNOT TELL HER WHAT THE HELL IS GOING ON AND SHE FINALLY HAS AN APPOINTMENT WIHT PRIMARY CARE PROVIDER TOMORROW AND SHE DOESN'T WANT TO WAIT ANOTHER MONTH FOR AN APPOINTMENT ETC. PT STATES THAT IF IF ANYTHING CHANGES TONIGHT SHE WILL COME BACK.
--- NOTE | 2020-01-16 18:46 | NUR ---
DR.KALADAS DOMINGUEZ PT PROVIDED WITH AMA FORM
[2020-01-16 18:53] VITALS: BP 133/77
--- NOTE | 2020-01-16 18:53 | NUR ---
Patient decides to leave AMA. Multiple attempts made to ecourage patient to remain here for continued treatment. Explained to patient all risks of leaving against medical advice including . Pt verbalized understanding of all risks. Pt also encouraged to return to [facility] at any time, especially if symptoms continue or become worse. Pt verbalized understanding. AMBULATED OFF UNIT WITH STEADY GAIT.
== END 2020-01-16 18:53 | disposition left against medical advice (07) ==
LOC: ED 16:33 → ED-I 18:20 → ED 18:32 → ED-I 18:33
PROVIDERS: Emergency Medicine
DX: G45.9 Transient cerebral ischemic attack, unspecified (principal); E11.40 Type 2 diabetes mellitus with diabetic neuropathy, unspecified; E11.22 Type 2 diabetes mellitus with diabetic chronic kidney disease; I12.9 Hypertensive chronic kidney disease with stage 1 through stage 4 chronic kidney disease, or unspecified chronic kidney disease; N18.9 Chronic kidney disease, unspecified; E11.610 Type 2 diabetes mellitus with diabetic neuropathic arthropathy; F17.200 Nicotine dependence, unspecified, uncomplicated; Z91.19 Patient's noncompliance with other medical treatment and regimen; Z79.4 Long term (current) use of insulin; Z20.828 Contact with and (suspected) exposure to other viral communicable diseases

== ENCOUNTER 2020-04-17 13:08 | Emergency (ER) | payer MEDICARE, MEDICAID ==
[~2020-04-17] VITALS: Ht 177.8 cm; Wt 86.0 kg
[2020-04-17 17:15] LABS: IMMATURE GRANULOCYTES 0.3 % (0.0-5.0); MEAN CELL VOLUME 81.8 fL CALC (80.0-100.0); MEAN CORPUSCULAR HGB 26.8 pG CALC (26.0-32.0); MEAN CORPUSCULAR HGB CONC 32.7 g/dL CAL (32.0-36.0); NEUT# 8.6 thou/uL (2.00-7.15); RED BLOOD COUNT 6.16 mill/uL (4.20-5.60); RED CELL DISTRI WIDTH 13.6 % (11.5-15.5)
[2020-04-17 17:18] LABS: HEMATOCRIT 50.4 % (37.0-47.0); HEMOGLOBIN 16.5 g/dl (12.0-16.0)
[2020-04-17 17:22] LABS: ALBUMIN 2.9 g/dL (3.2-5.0); BILIRUBIN, TOTAL 0.5 mg/dL (0.0-1.4); CREATININE 2.2 mg/dL (0.5-1.0); POTASSIUM 3.8 mmol/l (3.5-5.1); TOTAL PROTEIN 5.5 g/dL (6.3-8.2)
[2020-04-17 18:09] VITALS: BP 209/91
[2020-04-18] MEDS ORDERED: PREDNISONE50 MG PO (13:49)
[2020-04-18] MEDS ORDERED: ALL DAY10 MG PO (13:49)
== END 2020-04-17 18:59 | disposition home or self-care (01) ==
LOC: ED 13:08
PROVIDERS: Physician Assistant Surgical
DX: M54.5 Low back pain (principal); E11.9 Type 2 diabetes mellitus without complications; I10 Essential (primary) hypertension; F31.9 Bipolar disorder, unspecified; F41.0 Panic disorder [episodic paroxysmal anxiety]; F17.200 Nicotine dependence, unspecified, uncomplicated; I25.2 Old myocardial infarction; Z79.4 Long term (current) use of insulin

== ENCOUNTER 2020-04-18 11:06 | Emergency (ER) | payer MEDICARE, MEDICAID ==
[~2020-04-18] VITALS: Ht 177.8 cm; Wt 85.0 kg
[2020-04-18 13:16] LABS: HEMATOCRIT 48.8 % (37.0-47.0); HEMOGLOBIN 16.1 g/dl (12.0-16.0); IMMATURE GRANULOCYTES 0.5 % (0.0-5.0); MEAN CELL VOLUME 82.4 fL CALC (80.0-100.0); MEAN CORPUSCULAR HGB 27.2 pG CALC (26.0-32.0); NEUT# 17.34 thou/uL (2.00-7.15); RED BLOOD COUNT 5.92 mill/uL (4.20-5.60); RED CELL DISTRI WIDTH 13.8 % (11.5-15.5)
[2020-04-18 13:34] LABS: ANION GAP 13 (6-22 (CALC)); BUN 35 mg/dL (7-17); BUN/CREATININE RATIO 14 (12-20 (CALC)); CARBON DIOXIDE 23 mmol/l (22-30); CHLORIDE 103 mmol/l (95-108); CREATININE 2.5 mg/dL (0.5-1.0); GFR 21 ML/MIN (>=60 (CALC)); GFR FOR AFR.AMER. 26 ML/MIN (>=60 (CALC)); POTASSIUM 4.3 mmol/l (3.5-5.1); SODIUM 134 mmol/l (137-146)
[2020-04-18] MEDS ORDERED: ALL DAY10 MG PO (13:49)
[2020-04-18] MEDS ORDERED: PREDNISONE50 MG PO (13:49)
[2020-04-18 14:05] VITALS: BP 238/108
== END 2020-04-18 14:12 | disposition left against medical advice (07) ==
LOC: ED 11:06
PROVIDERS: Family Medicine
DX: H02.846 Edema of left eye, unspecified eyelid (principal); H02.843 Edema of right eye, unspecified eyelid; T39.8X5A Adverse effect of other nonopioid analgesics and antipyretics, not elsewhere classified, initial encounter; I16.0 Hypertensive urgency; I10 Essential (primary) hypertension; E11.9 Type 2 diabetes mellitus without complications; F31.9 Bipolar disorder, unspecified; F41.0 Panic disorder [episodic paroxysmal anxiety]; I25.2 Old myocardial infarction; G89.29 Other chronic pain; M54.9 Dorsalgia, unspecified; F17.200 Nicotine dependence, unspecified, uncomplicated; Z79.4 Long term (current) use of insulin; Z91.19 Patient's noncompliance with other medical treatment and regimen

== ENCOUNTER 2020-04-29 05:19 | Emergency (ER) | payer MEDICARE, MEDICAID ==
[~2020-04-29] VITALS: Ht 177.8 cm; Wt 84.0 kg
[~2020-04-29 05:19] MED LIST changes: +ALL DAY10 MG PO; +PREDNISONE50 MG PO
[2020-04-29 06:51] LABS: HEMOGLOBIN 15.1 g/dl (12.0-16.0); IMMATURE GRANULOCYTES 0.9 % (0.0-5.0); MEAN CELL VOLUME 82.3 fL CALC (80.0-100.0); MEAN CORPUSCULAR HGB CONC 32.8 g/dL CAL (32.0-36.0); NEUT# 12.19 thou/uL (2.00-7.15); RED BLOOD COUNT 5.59 mill/uL (4.20-5.60); RED CELL DISTRI WIDTH 13.6 % (11.5-15.5)
[2020-04-29 07:14] LABS: ALBUMIN 2.7 g/dL (3.2-5.0); BILIRUBIN, TOTAL 0.4 mg/dL (0.0-1.4); CREATININE 2.8 mg/dL (0.5-1.0); TOTAL PROTEIN 5.3 g/dL (6.3-8.2)
[2020-04-29] MEDS ORDERED: PREDNISONE50 MG PO (10:36)
[2020-04-29] MEDS ORDERED: EPIPEN 2-P0.3 MG/0.3 IM (10:36)
[2020-04-29 10:42] VITALS: BP 145/97
== END 2020-04-29 10:50 | disposition left against medical advice (07) ==
LOC: ED 05:19
PROVIDERS: Emergency Medicine
DX: T78.40XA Allergy, unspecified, initial encounter (principal); E11.9 Type 2 diabetes mellitus without complications; I10 Essential (primary) hypertension; F31.9 Bipolar disorder, unspecified; I25.2 Old myocardial infarction; F17.210 Nicotine dependence, cigarettes, uncomplicated; X58.XXXA Exposure to other specified factors, initial encounter; Z91.19 Patient's noncompliance with other medical treatment and regimen; Z79.4 Long term (current) use of insulin

== ENCOUNTER 2020-06-11 08:28 | Observation (INO) | payer MEDICARE, MEDICAID ==
[~2020-06-11] VITALS: Ht 177.8 cm; Wt 89.5 kg
[~2020-06-11 08:28] MED LIST changes: +EPIPEN 2-P0.3 MG/0.3 IM
--- NOTE | 2020-06-11 08:32 | NUR ---
PATIENT TO ROOM VIA WHEELCHAIR.
[2020-06-11 09:20] LABS: IMMATURE GRANULOCYTES 0.3 % (0.0-5.0); MEAN CELL VOLUME 81.8 fL CALC (80.0-100.0); NEUT# 11.3 thou/uL (2.00-7.15); RED BLOOD COUNT 6.86 mill/uL (4.20-5.60); RED CELL DISTRI WIDTH 15.3 % (11.5-15.5)
--- NOTE | 2020-06-11 09:22 | NUR ---
MEDICATIONS ADMINSTRATED AFTER SUCCESSFUL IV PLACEMENT
[2020-06-11 09:44] LABS: CREATININE 2.9 mg/dL (0.5-1.0)
[2020-06-11 09:48] LABS: HEMATOCRIT 56.1 % (37.0-47.0); HEMOGLOBIN 18.5 g/dl (12.0-16.0)
[2020-06-11 10:18] LABS: ALBUMIN 3.9 g/dL (3.2-5.0); BILIRUBIN, TOTAL 0.9 mg/dL (0.0-1.4); POTASSIUM 4.1 mmol/l (3.5-5.1); TOTAL PROTEIN 7.5 g/dL (6.3-8.2)
[2020-06-11 11:14] LABS: URINE BILIRUBIN - DIPSTICK NEGATIVE (NEGATIVE); URINE BLOOD DIPSTICK SMALL (NEGATIVE); URINE COLOR YELLOW; URINE GLUCOSE - DIPSTICK 250 mg/dL (NEGATIVE); URINE KETONE NEGATIVE (NEGATIVE); URINE LEUK ESTERASE NEGATIVE (NEGATIVE); URINE NITRITE - DIPSTICK NEGATIVE (Negative); URINE PROTEIN - DIPSTICK >=300 mg/dL (NEG-TRACE); URINE UROBILINOGEN - DIPSTICK 0.2 E.U./dL (0.2)
[2020-06-11 11:17] LABS: URINE EPITHELIAL CELLS FEW EPI/hpf (0-FEW); URINE MUCUS FEW hpf (NONE-FEW)
--- NOTE | 2020-06-11 11:52 | NUR ---
PT BACK IN THE ROOM
--- NOTE | 2020-06-11 12:25 | NUR ---
PT HAS NO COMPLAINTS AT THIS TIME BP LOWERED AFTER MEDICATION ADMINSTRATION
--- NOTE | 2020-06-11 13:58 | NUR ---
ATTEMPTED TO CALL FOR REPORT TO [facility]. WILL TRY AGAIN PT HAS NO DISTRESS
--- NOTE | 2020-06-11 14:58 | NUR ---
REPORT CALLED AND GIVEN TO PANCHO MEDINA. TRANSFER TO [facility] ONCE ROOM IS CLEANED
[2020-06-11 16:00] VITALS: BP 189/98
--- NOTE | 2020-06-11 16:10 | NUR ---
TRANSFERRED TO [facility] WITHOUT COMPLAINTS. PLACED CALL LIGHT IN REACH
--- NOTE | 2020-06-11 17:30 | NUR ---
PT ARRIVES TO ROOM 269 VIA WHEELCHAIR FROM ER ACCOMPANIED BY PILAR MEDINA. PT IS ALERT AND ORIENTED X 3. LUNGS CLEAR, RA. NO COMPLAINTS EXCEPT THAT SHE IS HUNGRY. PT STATES THAT SHE VOMITED LAST PRIOR TO COMING TO HOSPITAL THIS MORNING. RIGHT FOOT DEFORMITY NOTED; PT STATES ANKLE COLLAPSED ON ITSELF. PT ABLE TO BEAR WEIGHT ON IT FOR SHORT PERIODS OF TIME SINCE IT HAPPENED MONTHS AGO.
--- NOTE | 2020-06-11 18:31 | NUR ---
PT PROVIDED NAUSEA MED, STATED THAT SHE ATE TOO MUCH OF THE LIQUID DIET THAT WAS PROVIDED FOR HER. NO VOMITING NOTED.
[2020-06-11 18:49] VITALS: BP 191/107
--- NOTE | 2020-06-11 20:30 | NUR ---
ASSESSMENT COMPLETED AT THIS TIME. PT ASKING FOR CRACKERS AND JUICE. I EXPLAINED TO HER THAT SHE WAS ON A FULL LIQUID DIET, SHE REPLIED "THE DOCTOR GAVE ME CRACKERS BEFORE I LEFT, I WAS FINE." JUICE PROVIDED AT THIS TIME.
[2020-06-11 23:48] VITALS: BP 207/108
--- NOTE | 2020-06-12 00:40 | NUR ---
RUBBER COMPOUNDER FORMULATOR REPORTED ELEVATED BP FOR PT. PHYSICIAN NOTIFIED AND NEW ORDER RECEIVED.
--- NOTE | 2020-06-12 01:10 | NUR ---
PT MEDICATED FOR ELEVATED BP. PT SLEEPING, AWOKE TO MY VOICE. NO S/O DISTRESS NOTED. PT SLIGHTLY AWOKE AND QUICKLY RETURNED TO SLEEP PRIOR TO MY EXITING ROOM.
[2020-06-12 02:22] VITALS: BP 148/79
--- NOTE | 2020-06-12 04:40 | NUR ---
PT SITTING ON THE SIDE OF THE BED HOLDING HEAD OVER TRASH CAN STATING SHE FEELS LIKE SHE NEEDS TO VOMIT. PT HAS ALREADY BEEN MEDICATED WITH ZOFRAN FOR NAUSEA AND PROVIDED COOL WASHCLOTH FOR COMFORT. EMESIS BAGS PROVIDED. CALL LIGHT AT BEDSIDE.
[2020-06-12 04:45] VITALS: BP 205/93
[2020-06-12 05:28] LABS: MEAN CELL VOLUME 83.2 fL CALC (80.0-100.0); MEAN CORPUSCULAR HGB 26.4 pG CALC (26.0-32.0); MEAN CORPUSCULAR HGB CONC 31.8 g/dL CAL (32.0-36.0); RED BLOOD COUNT 5.07 mill/uL (4.20-5.60); RED CELL DISTRI WIDTH 14.6 % (11.5-15.5)
[2020-06-12 05:30] VITALS: BP 157/88
[2020-06-12 05:31] LABS: HEMATOCRIT 42.2 % (37.0-47.0); HEMOGLOBIN 13.4 g/dl (12.0-16.0)
--- NOTE | 2020-06-12 05:32 | NUR ---
PT SLEEPING AT THIS TIME. NO S/O DISTRESS NOTED. WILL CONTINUE TO MONITOR.
[2020-06-12 05:36] LABS: CREATININE 3.1 mg/dL (0.5-1.0); MAGNESIUM 1.8 mg/dL (1.6-2.3); POTASSIUM 4.3 mmol/l (3.5-5.1)
--- NOTE | 2020-06-12 08:11 | NUR ---
Patient screened for physical medicine intervention and no needs are identfied at this time
[2020-06-12 08:30] VITALS: BP 158/88
--- NOTE | 2020-06-12 08:30 | NUR ---
ASSESSMENT IS COMPLETED: IV SITE IS FREE FROM REDNESS OR EDEMA, HR IS REG,PULSES ARE STRONG X4, ABD IS SOFT WITH ACTIVE BS. BREATH SOUNDS ARE CLEAR,BILATERALLY, NO C/O SOB. EYES ARE PUFFY FROM A DRUG REACTION. MEDICATION WAS GIVEN. TELE MONITOR #[id number] CONTINUE TO OSBERVE AND MONITOR.
[2020-06-12] MEDS ORDERED: BENADRYL 25MG C25 MG PO (10:38)
[2020-06-12] MEDS ORDERED: PREDNISONE10 MG PO (10:39)
[2020-06-12] MEDS ORDERED: ZOFRAN4 MG/TAB PO (10:40)
[2020-06-12 11:13] VITALS: BP 159/89
--- NOTE | 2020-06-12 12:15 | NUR ---
PT IS RELAXING IN BED WITH NO DISTRESS NOTED. IV SITE IS FREE FROM REDNESS OR EDMEA
--- NOTE | 2020-06-12 15:30 | NUR ---
IV SITE DISCONTINUED CATHETER INTACT. MO REDNESS OR EDEMA. DISCHARGE INSTRUCTIONS GIVEN AND VERBALIZE D UNDERSTANDING. Discharge instructions given. Patient verbalizes understanding of same. Discharged in stable condition via Wheelchair to Home with family. All belongings sent with pt.
== END 2020-06-12 15:26 | disposition home or self-care (01) ==
LOC: ED 08:28 → ED-I 12:35 → ED 12:51 → MS2 12:52
PROVIDERS: Family Medicine; Nurse Practitioner; ADMIT Internal Medicine; ATTEND Internal Medicine
DX: R11.2 Nausea with vomiting, unspecified (principal); I16.0 Hypertensive urgency; N17.9 Acute kidney failure, unspecified; I12.9 Hypertensive chronic kidney disease with stage 1 through stage 4 chronic kidney disease, or unspecified chronic kidney disease; E11.22 Type 2 diabetes mellitus with diabetic chronic kidney disease; N18.30 Chronic kidney disease, stage 3 unspecified; D72.829 Elevated white blood cell count, unspecified; E11.65 Type 2 diabetes mellitus with hyperglycemia; F31.9 Bipolar disorder, unspecified; F41.0 Panic disorder [episodic paroxysmal anxiety]; R22.0 Localized swelling, mass and lump, head; T46.5X5A Adverse effect of other antihypertensive drugs, initial encounter; I25.2 Old myocardial infarction; F17.200 Nicotine dependence, unspecified, uncomplicated; Z79.4 Long term (current) use of insulin; Z20.828 Contact with and (suspected) exposure to other viral communicable diseases

== ENCOUNTER 2020-06-15 14:51 | Emergency (ER) | payer MEDICARE, MEDICAID ==
[~2020-06-15] VITALS: Ht 177.8 cm; Wt 100.0 kg
[~2020-06-15 14:51] MED LIST changes: +BENADRYL 25MG C25 MG PO; +PREDNISONE10 MG PO
[2020-06-15 16:35] VITALS: BP 155/74
== END 2020-06-15 16:35 | disposition home or self-care (01) ==
LOC: ED 14:51
PROC: 2W3CX1Z Immobilization of Right Lower Arm using Splint (ICD-10-PCS; principal; 2020-06-15)
DX: S52.501A Unspecified fracture of the lower end of right radius, initial encounter for closed fracture (principal); S52.601A Unspecified fracture of lower end of right ulna, initial encounter for closed fracture; I10 Essential (primary) hypertension; F31.9 Bipolar disorder, unspecified; F41.0 Panic disorder [episodic paroxysmal anxiety]; I25.2 Old myocardial infarction; E11.9 Type 2 diabetes mellitus without complications; Z79.4 Long term (current) use of insulin; F17.200 Nicotine dependence, unspecified, uncomplicated; W01.0XXA Fall on same level from slipping, tripping and stumbling without subsequent striking against object, initial encounter; Y92.009 Unspecified place in unspecified non-institutional (private) residence as the place of occurrence of the external cause

== ENCOUNTER 2020-11-12 14:01 | Observation (INO) | payer MEDICARE, MEDICAID ==
[~2020-11-12] VITALS: Ht 177.8 cm; Wt 99.0 kg
--- NOTE | 2020-11-12 14:04 | NUR ---
TO ROOM VIA WHEELCHAIR IN STABLE CONDITION FOR BEDSIDE TRIAGE
[2020-11-12] MEDS ORDERED: CLONIDINE0.1 MG TD (14:29)
[2020-11-12] MEDS ORDERED: RENVELA800 MG PO (14:30)
[2020-11-12] MEDS ORDERED: GABAPENTIN100 MG PO (14:30)
[2020-11-12] MEDS ORDERED: FUROSEMIDE20 MG PO (14:31)
[2020-11-12] MEDS ORDERED: HYDRALAZINE50 MG PO (14:33)
[2020-11-12] MEDS ORDERED: PRAVASTATIN20 MG PO (14:34)
[2020-11-12] MEDS ORDERED: ISOSORB MONO30 MG PO ×2 (14:34→14:40)
[2020-11-12] MEDS ORDERED: NIFEDIPINE60 MG PO (14:35)
[2020-11-12] MEDS ORDERED: FERR SULFATE325 MG PO (14:35)
[2020-11-12] MEDS ORDERED: TRAZODONE50 MG PO (14:36)
[2020-11-12] MEDS ORDERED: VITAMIN D22000 UNIT PO (14:36)
[2020-11-12 15:23] LABS: ALBUMIN 3.1 g/dL (3.2-5.0); BILIRUBIN, TOTAL 0.5 mg/dL (0.0-1.4); CREATININE 4.4 mg/dL (0.5-1.0); POTASSIUM 4.9 mmol/l (3.5-5.1); TOTAL PROTEIN 5.8 g/dL (6.3-8.2)
[2020-11-12 15:36] LABS: HEMATOCRIT 28.7 % (37.0-47.0); HEMOGLOBIN 9.3 g/dl (12.0-16.0); IMMATURE GRANULOCYTES 0.8 % (0.0-5.0); MEAN CELL VOLUME 87.2 fL CALC (80.0-100.0); MEAN CORPUSCULAR HGB 28.3 pG CALC (26.0-32.0); MEAN CORPUSCULAR HGB CONC 32.4 g/dL CAL (32.0-36.0); NEUT# 10.8 thou/uL (2.00-7.15); RED BLOOD COUNT 3.29 mill/uL (4.20-5.60); RED CELL DISTRI WIDTH 13.7 % (11.5-15.5)
--- NOTE | 2020-11-12 15:49 | NUR ---
RESTING IN ROOM COMFORTABLE, ALERT
--- NOTE | 2020-11-12 19:20 | NUR ---
RESTING IN BED NO DISTRESS. BLE EDEMATOUS -RIGHT GREATER THAN LEFT. FAINT PULSES PALPABLE.
--- NOTE | 2020-11-12 19:35 | NUR ---
REPORT GIVEN TO VICTORIANO Stout RN. CALL PLACED TO PHARMACY FOR CLARIFICATION FOR VANCOMYCIN 500 MG SCHEDULED AT 1815. PER ANIKA LORENZ PHARM D - GIVE ADDITIONAL 500MG BASED ON PATIENT WEIGHT. DISCUSSED RENAL DOSING. DOSE WILL BE REEVALUATED TOMORROW BASED ON LABS.
--- NOTE | 2020-11-12 19:41 | NUR ---
VANCOMYCIN 500 MG NOT AVAILABLE IN ER AT THIS TIME, AMIRA CALLESGLASS TOUGHENING OPERATOR NOTIFIED. MEDICATION WILL BE BROUGHT TO ER TO BE STARTED PRIOR TO TRANSPORT TO FLOOR PER GLASS TOUGHENING OPERATOR.
--- NOTE | 2020-11-12 19:48 | NUR ---
TELE BOX 3814 IN USE
--- NOTE | 2020-11-12 19:49 | NUR ---
STEVAN COLLIERREVERSE ENGINEER IN ER. VANCOMYCIN NOT YET OBTAINED. INSTRUCTED TO TRANSPORT PATIENT TO FLOOR BY CHARGE NURSE AND REVERSE ENGINEER.
[2020-11-12 19:55] VITALS: BP 179/93
--- NOTE | 2020-11-12 20:09 | NUR ---
UPDATE GIVEN TO RECEIVING NURSE REGARDING NEED FOR VANCO 500MG FROM MUSSEL OPENER
--- NOTE | 2020-11-12 20:30 | NUR ---
SPOKE WITH ANGELIKA MARTINEZ APRN REGUARDING PATIENT PAIN AND MORPHINE ORDER RECIEVED. SPOKE TO HER ABOUT VANCO ORDER FOR TONIGHT-VANCO 500MG IVPB ORDERED FOR TONIGHT. PATIENT WITH ELEVATED RENAL STUDIES. CREAT-4.4, BUN-60, GFR-11. ORDER RECEIVED TO HOLD THAT DOSE FOR TONIGHT AND PHARM TO DOSE FOR TOMORROW. WILL CONT TO MONITOR,
[2020-11-12 21:00] VITALS: BP 168/87
--- NOTE | 2020-11-12 21:15 | NUR ---
PATIENT ADMITTED FROM ER VIA STRETCHER WITH ER STAFF IN ATTENDANCE. PATIENT MAX ASSIST FROM STRETCHER TO BED. PATIENT WITH HX OF MULTIPLE CVA AND RIGHT SIDED WEAKNESS AND EXPRESSIVE APHASIA. PATIENT WITH BRACE TO RIGHT LOWER ARM. STATES THAT SHE HAS FX WRIST FROM PREVIOUS FALL. PATIENT IS AWAKE ALERT AND SOMETIMES VERY EMOTIONAL. GETS UPSET WHEN TRYING TO EXPRESS HERSELF VERBALLY AND HAS SOME DIFFICULTY. PATIENT ADMITTED FOR RLE CELLULITIS. RIGHT FOOT IS 4+ PITTING EDEMA AND LEFT IS 2+. ELEVATED ON PILLOWS. PATIENT WITH SEVERE PAIN TO BACK AND RLE-10/10. MEDICATED WITH MORPHINE 2MG IVP ORDERED FOR PAIN VIA LEFT FOREARM IV SITE. SITE IS HEALTHY WITH GOOD BLOOD RETURN. PATIENT PROVIDED WITH DINNER AND DRINK-ATE 100%. PATIENT ORIENTED TO ROOM AND SURROUNDINGS. MUCH CALMER AT THIS TIME COMPARED TO UPON ARRIVAL TO FLOOR. INSTRUCTED ON USE OF NURSE CALL LIGHT SYSTEM, TV REMOTE AND PHONE. SAFETY PRECAUTIONS REINFORCED. CALL LIGHT IN REACH, WILL CONT TO MONITOR.
--- NOTE | 2020-11-12 23:45 | NUR ---
PATIENT RESTING IN BED AT THIS TIME WITH EYES CLOSED. RESPS ARE EVEN AND UNLABORED. TELE MONITOR IN PLACE. BLE ARE ELEVATED ON PILLOWS. CALL LIGHT IN REACH. WILL CONT TO MONITOR.
[2020-11-13] VITALS (7 sets, daily range): BP systolic 124–204; BP diastolic 71–97
[2020-11-13 01:04] LABS: URINE BILIRUBIN - DIPSTICK NEGATIVE (NEGATIVE); URINE BLOOD DIPSTICK TRACE-INTACT (NEGATIVE); URINE COLOR YELLOW; URINE GLUCOSE - DIPSTICK NEGATIVE (NEGATIVE); URINE KETONE NEGATIVE (NEGATIVE); URINE LEUK ESTERASE NEGATIVE (NEGATIVE); URINE PROTEIN - DIPSTICK >=300 mg/dL (NEG-TRACE); URINE UROBILINOGEN - DIPSTICK 0.2 E.U./dL (0.2)
--- NOTE | 2020-11-13 01:09 | NUR ---
PATIENT CALLED AND ASSISTED TO THE BSC TO VOID 800CC OF URINE. URINE SPEC OBTAINED AND SENT TO LAB. PATIENT ASSISTED BACK TO THE BED. PROVIDED WITH GINGERALE AND SNACK PER PATIENT REQUEST. CALL LIGHT IN REACH. WILL CONT TO MONITOR.
[2020-11-13 01:21] LABS: URINE NITRITE - DIPSTICK NEGATIVE (Negative)
[2020-11-13 01:23] LABS: URINE BACTERIA MODERATE hpf; URINE EPITHELIAL CELLS MANY EPI/hpf (0-FEW)
--- NOTE | 2020-11-13 02:13 | NUR ---
PATIENT RESTING IN BED-MEDICATED FOR BACK AND RIGHT LEG PAIN WITH MORPHINE 2MG IVP FOR 8/10 ON PAIN SCALE. CALL LIGHT IN REACH, WILL CONT TO MONITOR.
--- NOTE | 2020-11-13 05:03 | NUR ---
PATIENT APPEARS SLEEPING AT THIS TIME WITH EYES CLOSED. RESPS ARE EVEN AND UNLABORED. TELE MONITOR IN PLACE. SALINE LOCK TO LEFT FOREARM INTACT AND REMAINS HEALTHY AT THIS TIME. CALL LIGHT IN REACH. WILL CONT TO MONITOR.
[2020-11-13 05:40] LABS: HEMATOCRIT 26.9 % (37.0-47.0); HEMOGLOBIN 8.4 g/dl (12.0-16.0); MEAN CORPUSCULAR HGB 28.1 pG CALC (26.0-32.0); MEAN CORPUSCULAR HGB CONC 31.2 g/dL CAL (32.0-36.0); RED BLOOD COUNT 2.99 mill/uL (4.20-5.60); RED CELL DISTRI WIDTH 13.6 % (11.5-15.5)
[2020-11-13 06:00] LABS: CREATININE 4.2 mg/dL (0.5-1.0)
[2020-11-13 06:08] LABS: POTASSIUM 5.5 mmol/l (3.5-5.1)
--- NOTE | 2020-11-13 06:11 | NUR ---
PATIENT RESTING IN BED-STATES THAT SHE IS FEELING BETTER THIS MORNING. PATIENT CONT TO REFUSE HEPARIN SQ FOR DVT EVEN AFTER EDUCATION PROVIDED. AZACTAM HUNG AND INFUSING VIA LEFT FOREARM SITE. SITE REMAINS HEALTHY AT THIS TIME. TELE MONITOR IN PLACE.CALL LIGHT IN REACH. WILL CONT TO MONITOR.
--- NOTE | 2020-11-13 07:00 | NUR ---
RECIEVED REPORT FROM CAROL PASTRANA
--- NOTE | 2020-11-13 07:52 | NUR ---
PT RESTING IN SEMI FOWLERS POSITION. PT IS A/O X3 AND EMOTIONAL AT TIMES. ASSESSMENT AND VITALS COMPLETED. BP 193/97, HR 76, O2 94% ON ROOM AIR. RESPIRATIONS ARE EVEN AND UNLABORED. LUNG SOUNDS ARE CLEAR. HEART RHYTHM IS NORMAL WITH TELE IN PLACE, SR PER ER MONITORING. BOWEL SOUNDS HYPOACTIVE, LAST REPORETD BM 11/10/20. PT REFUSES ANYTHING TO ASSIST. RADIAL PULSES STRONG. PEDAL PULSES WEAK.PT HAS PREVIOUSLY HAD STROKES X3, RIGHT SIDED WEAKNESS NOTED. 4+ EDEMA NOTED TO RLE AND 3+ EDEMA NOTED TO LLE. LEG BRACE AT BEDSIDE THAT PT APPLIES WHEN WALKING. RIGHT RIST BRACE DUE TO PREVIOUS FRACTURE. SKIN INTACT. PT COMPLAINS OF 9/10 RLE AND BACK PAIN. MORPHINE TO BE AMDINISTERED. PT DENIES OF ADDITIONAL NEEDS AT THIS TIME. ALL SAFETY PRECAUTION ARE IN PLACE WITH CALL LIGHT IN REACH. WILL CONTINUE TO MONITOR.
--- NOTE | 2020-11-13 08:30 | NUR ---
MORPHINE MEDS ADMINISTERED WITH MOORPHINE AND KAYEXALATE. ATTEMPTED TO EDUCATE PT ON MEDIATIONS. PT BEGAN TO CRY, STATING " I DONT KNOW WHAT THAT DOES." VERBAL CUES AND REASSURANCE TO CALM PT. PT REEDUCATED ON MEDICATIONS. PT VERBALIZED UNDERSTANDING. MEDICATIONS ADMINISTERED.
--- NOTE | 2020-11-13 08:51 | NUR ---
DR CARREON AT BEDSIDE
--- NOTE | 2020-11-13 08:55 | NUR ---
DR CARREON AT BEDSIDE
--- NOTE | 2020-11-13 09:27 | NUR ---
CALLED DR. SALAZAR OFFICE AT [phone] SPOKE TO BRENDA GAVE INFORMATION REGARDING THIS PT. SHE STATED SHE WILL GIVE HIM THE MESSAGE.
--- NOTE | 2020-11-13 11:49 | NUR ---
PT CONTINUE TO BE EMOTIONAL AND CRYING.WRITING INFORMED PT THAT CONTINUING TO CRY WILL CAUSE BP TO RISE EVEN MORE. PT STATED "I CANNOT HELP IT."BP REUSLTING IN 213/103 MANUALLY, HR 77. CATAPRES 0.3 ADMINISTERED. PT TOLERATED WELL.
--- NOTE | 2020-11-13 12:01 | NUR ---
PT CRIES OUT " I ITCH. " UP ENTERING ROOM, PT REQUEST TO STAND UP AND STATES " MY BUTT ITCHES I NEED TO STAND UP."PT ASSSITED WITH STANDING UP AND ASSISTED TO CHAIR FOR LUNCH.
--- NOTE | 2020-11-13 12:18 | NUR ---
PT SITTING UP IN CHAIR EATING LUNCH. RESPIRATIONS ARE EVEN AND UNLABORED ON ROOM AIR. #20G IN LFA REMAINS IN PLACE. TELE MONITORING IN PLACE. PT DENIES OF ANY NEEDS AT THIS TIME. ALL SAFETY PRECAUTIONS ARE IN PLACE WITH CALL LIGHT IN REACH. WILL CONTINUE TO MONITOR.
--- NOTE | 2020-11-13 12:36 | NUR ---
REASSESSMENT OF BP RESULTING IN 204/94, HR 79. RESPIRATIONS ARE EVEN AND UNLABORED WIT NO DISRTESS NOTED. PT REAMINS ASYPTOMATIC. PT DENIES OF ANY NEEDS AT THIS TIME. SRAVANI,ANRP NOTIFIED OF BP.
--- NOTE | 2020-11-13 13:10 | NUR ---
XANAX ADMINISTERED TO HELP WITH ANXIETY AND EMOTIONAL STATUS. PT TOLERATED WELL.
--- NOTE | 2020-11-13 13:36 | NUR ---
S: ZULEMA SO is a 40 F who presents with cellulitis. She has a history of diabetes mellitus, hypertension, +tobacco, depression, bipolar insomnia, pain management, endometriosis, cholecystectomy partial, kidney failure, panic disorder, pneumonia, [place], migraines, ovarian cyst, sleep apnea, and chronic back pain. All medications in patient's chart were reviewed. O: VS: BP 204/94 mmHg, P 79 bpm, RR 19 bpm,T 98.1 F W 94.007 kg, HT 70 in, Scr= 4.2 mg/dl,CrCl= 26.2 ml/min A: Blood culture is pending. Urine culture is pending. P: Patient is on Azactam 1 g IV Q12H. Vancomycin ordered for pharmacy to dose. Start Vancomycin 1,250 g IV Q36H. Vancomycin trough is drawn before the 4th dose on 11/17/20 @ 03:30. Vancomycin goal trough is between 10-15 mcg/ml. Pharmacy will follow and or advise on antibiotics use as needed.
--- NOTE | 2020-11-13 14:28 | NUR ---
REASSESSMENT OF BP RESULTING IN 124/71, HR 85. RESPIRAITONS ARE EVEN AND UNLABORED WITH NO DISTRESS NOTED. PT APPEARS MUCH MORE CALM AT THIS TIME. PT ASSISTED TO BSC AND BACK INTO BED.PT DENIES OF ANY NEEDS AT THIS TIME. ALL SAFETY PRECAUTIONS ARE IN PLACE WITH CALL LIGHT IN REACH. WILL CONTINUE TO MONITOR.
--- NOTE | 2020-11-13 14:52 | NUR ---
PT REFUSED HEPARIN. PT EDUCATED ON NEED. PT CONTINUED TO REFUSE
--- NOTE | 2020-11-13 16:28 | NUR ---
PT RESTING IN SEMI FOWLERS POSITION. PT REMAINS A/O X3 AND CALM. REPSIRATIONS ARE EVEN AND UNLABORED ON ROOM AIR. #20G IN LFA HEALTHY AND PATENT. TELE MONITORING IN PLACE, SR PER ER MONITORING. PT DENIES OF ANY PAINS OR DISCOMFORTS AT THIS TIME. ALL SAFETY PRECAUTIONS ARE IN PLACE WITH CALL LIGHT IN REACH. WILL CONTINUE TO MONITRO.
--- NOTE | 2020-11-13 17:42 | NUR ---
SPOKE TO DAUGHTER ON PHONE, PERMISSION FROM PT TO GIVE PASSCODE. UPDATE PROVIDED. DAUGHTER BEGINS GETTING EMOTIONAL STATING " MY GRANDMA SAYS SHE WONT MAKE IT THROUGH THE YEAR. DO YOU THINK SHE WILL ?" DAUGHTER INFORMED THAT CEMENTER MACHINE JOINER WAS NOT ABLE TO DETERMINE THAT. DAUGHTER ERENSURED THAT PT WAS STABLE AND DC WOULD BE DISCUSSED FOR TOMORROW.
--- NOTE | 2020-11-13 19:27 | NUR ---
PATIENT SITTING UP IN BED EATING SALAD ON FIRST ROOMS. PATIENT AWAKE ALERT AND ORIENTEDX3. NO COMPLAINTS AT THIS TIME. TELE MONITOR IN PLACE.IVF NS PATENT AND INFUSING VIA LEFT FOREARM SITE AT 75CC/HR. SITE IS HEALTHY AT THIS TIME. SAFETY PRECAUTIONS REINFORCED. CALL LIGHT IN REACH. WILL CONT TO MONITOR.
--- NOTE | 2020-11-13 22:00 | NUR ---
PATIENT RESTING IN BED-UP TO THE [facility] TO VOID WITH ASSIST. PATIENT WITH RIGHT SIDE WEAKNESS FROM PREVIOUS STROKE. PATIENT ALSO WITH SOME EXPRESSIVE APHASIA. HAS FRUSTRATION AT TIMES WITH WORD FINDING ISSUES. PATIENT WITH RIGHT WRIST BRACE INTACT FROM PREVIOUS WRIST INJURY. IVF PATENT AND INFUSING VIA LEFT FOREARM SITE AT 75CC/HR. PATIENT WITH SWELLING TO RLE-4+-ELEVATED ON PILLOW. MEDICATED WITH MORPHINE 2MG IVP FOR RIGHT LE AND BACK PAIN. ALSO MEDICTED WITH XANAX 0.5MG PO FOR ANXIETY AND SLEEP. SAFETY PRECAUTIONS REINFORCED. CALL LIGHT IN REACH. WILL CONT TO MONITOR.
[2020-11-14 00:08] VITALS: BP 156/87
[2020-11-14 04:00] VITALS: BP 160/92
--- NOTE | 2020-11-14 04:16 | NUR ---
PATIENT RESTING IN BED. VANCO HUNG AND INFUSING VIA LEFT FOREARM SITE ORDERED. TELE MONITOR IN PLACE. PATIENT PROVIDED WITH SNACK PER PATIENT REQUEST. SAFETY PRECAUTIONS REINFORCED. CALL LIGHT IN REACH. WILL CONT TO MONITOR.
--- NOTE | 2020-11-14 05:00 | NUR ---
PATIENT CONT TO CONSTANTLY CALL OUT FOR VARIOUS DIFFERENT THINGS. MULTIPLE ATTEMPT TO CALM PATIENT HAVE BEEN MADE. PATIENT HAS BEEN FREQUENTLY REPOSITIONED FROM SIDE TO SIDE. PATIENT HAS BEEN MEDICATED FOR RIGHT F=SHOULDER PAIN WITH TYLENOL WITH LITTLE OR NO RELIEF. PUREWICK WAS PLACE FOR URINE COLLECTION. TELE MONITOR IN PLACE. BED ALARM REMAINS IN PLACE. SAFETY PRECAUTIONS REINFORCED. CALL LIGHT IN REACH. WILL CONT TO MONITOR.
[2020-11-14 05:46] LABS: HEMATOCRIT 26.7 % (37.0-47.0); HEMOGLOBIN 8.5 g/dl (12.0-16.0); MEAN CELL VOLUME 88.4 fL CALC (80.0-100.0); MEAN CORPUSCULAR HGB 28.1 pG CALC (26.0-32.0); MEAN CORPUSCULAR HGB CONC 31.8 g/dL CAL (32.0-36.0); RED BLOOD COUNT 3.02 mill/uL (4.20-5.60); RED CELL DISTRI WIDTH 13.5 % (11.5-15.5)
[2020-11-14 06:05] LABS: ALBUMIN 2.6 g/dL (3.2-5.0); BILIRUBIN, TOTAL 0.4 mg/dL (0.0-1.4); CREATININE 4.4 mg/dL (0.5-1.0); MAGNESIUM 1.9 mg/dL (1.6-2.3); TOTAL PROTEIN 4.9 g/dL (6.3-8.2)
[2020-11-14 06:12] LABS: POTASSIUM 5.6 mmol/l (3.5-5.1)
[2020-11-14 07:25] VITALS: BP 169/69
--- NOTE | 2020-11-14 09:14 | NUR ---
PT IS AWAKE, ALERT, ORIENTED X 3. LUNGS CLEAR, RA. ABDOMEN SOFT, NONTENDER, LAST BM THURSDAY. PT HX R CVA, SEEN WITH RIGHT SIDED WEAKNESS, HEMIPLEGIA. SHE ALSO HAS SLURRED SPEECH AND EXPRESSIVE DYSPHASIA. PT TAKES MEDS WELL. NO DISTRESS NOTED.
[2020-11-14 10:32] VITALS: BP 210/103
[2020-11-14 10:45] VITALS: BP 169/69
[2020-11-14] MEDS ORDERED: DOXYCYCL HYC100 MG PO (10:49)
--- NOTE | 2020-11-14 11:34 | NUR ---
PT HAS BEEN DISCHARGED TO HOME. PT VERBALIZED UNDERSTANDING OF DC INSTRUCTIONS, TAKEN BY WHEELCHAIR TO VEHICLE. PRESCRIPTIONS HELD IN PHARMACY WERE RETURNED PRIOR TO HER DISCHARGE. PT LEAVES IN STABLE CONDITION.
== END 2020-11-14 11:30 | disposition home health service (06) ==
LOC: ED 14:01 → ED-I 14:29 → ED 16:15 → MS2 16:16
PROVIDERS: Family Medicine; Nurse Practitioner; ADMIT Internal Medicine; ATTEND Internal Medicine
DX: L03.115 Cellulitis of right lower limb (principal); N17.9 Acute kidney failure, unspecified; I12.0 Hypertensive chronic kidney disease with stage 5 chronic kidney disease or end stage renal disease; E11.22 Type 2 diabetes mellitus with diabetic chronic kidney disease; N18.5 Chronic kidney disease, stage 5; E86.9 Volume depletion, unspecified; E87.5 Hyperkalemia; I16.0 Hypertensive urgency; E87.2 Acidosis; E87.1 Hypo-osmolality and hyponatremia; R80.9 Proteinuria, unspecified; E11.610 Type 2 diabetes mellitus with diabetic neuropathic arthropathy; D63.1 Anemia in chronic kidney disease; F31.9 Bipolar disorder, unspecified; F41.0 Panic disorder [episodic paroxysmal anxiety]; I25.2 Old myocardial infarction; G47.30 Sleep apnea, unspecified; F17.210 Nicotine dependence, cigarettes, uncomplicated; Z88.0 Allergy status to penicillin; Z86.73 Personal history of transient ischemic attack (TIA), and cerebral infarction without residual deficits; Z20.822 Contact with and (suspected) exposure to COVID-19
CPT/HCPCS: G0378; J3370; Q5106 EC

== ENCOUNTER 2020-12-14 01:13 | Observation (INO) | payer MEDICARE, MEDICAID ==
[~2020-12-14] VITALS: Ht 177.8 cm; Wt 89.0 kg
[~2020-12-14 01:13] MED LIST changes: +CLONIDINE0.1 MG TD; +FERR SULFATE325 MG PO; +FUROSEMIDE20 MG PO; +GABAPENTIN100 MG PO; +HYDRALAZINE50 MG PO; +ISOSORB MONO30 MG PO; +NIFEDIPINE60 MG PO; +PRAVASTATIN20 MG PO; +RENVELA800 MG PO; +VITAMIN D22000 UNIT PO
--- NOTE | 2020-12-14 01:15 | NUR ---
BY WC TO ROOM THEN TO BATHROOM
[2020-12-14 02:14] LABS: URINE BILIRUBIN - DIPSTICK NEGATIVE (NEGATIVE); URINE BLOOD DIPSTICK MODERATE (NEGATIVE); URINE COLOR YELLOW; URINE GLUCOSE - DIPSTICK 100 mg/dL (NEGATIVE); URINE KETONE NEGATIVE (NEGATIVE); URINE LEUK ESTERASE NEGATIVE (NEGATIVE); URINE PROTEIN - DIPSTICK >=300 mg/dL (NEG-TRACE); URINE SPECIFIC GRAVITY 1.015; URINE UROBILINOGEN - DIPSTICK 0.2 E.U./dL (0.2)
[2020-12-14 02:18] LABS: URINE NITRITE - DIPSTICK NEGATIVE (Negative)
--- NOTE | 2020-12-14 02:24 | NUR ---
Reassessment of patient completed. No distress noted.
[2020-12-14 02:26] LABS: URINE SQUAMOUS EPITHELIAL CELL FEW EPI/hpf (0-FEW)
[2020-12-14 02:27] LABS: HEMATOCRIT 29.5 % (37.0-47.0); IMMATURE GRANULOCYTES 0.4 % (0.0-5.0); MEAN CELL VOLUME 89.7 fL CALC (80.0-100.0); MEAN CORPUSCULAR HGB 27.4 pG CALC (26.0-32.0); MEAN CORPUSCULAR HGB CONC 30.5 g/dL CAL (32.0-36.0); NEUT# 8.98 thou/uL (2.00-7.15); RED BLOOD COUNT 3.29 mill/uL (4.20-5.60); RED CELL DISTRI WIDTH 12.8 % (11.5-15.5)
[2020-12-14 02:29] LABS: BILIRUBIN, TOTAL 0.4 mg/dL (0.0-1.4); CREATININE 4.2 mg/dL (0.5-1.0); POTASSIUM 4.7 mmol/l (3.5-5.1)
[2020-12-14 02:32] LABS: ALBUMIN 3.6 g/dL (3.2-5.0); TOTAL PROTEIN 6.3 g/dL (6.3-8.2)
[2020-12-14 02:48] LABS: ACT PARTIAL THROMBO TIME 25.5 SECONDS (20.0-32.5); PROTHROMBIN TIME 10.7 SECONDS (9.0-12.5)
--- NOTE | 2020-12-14 04:48 | NUR ---
Admission Note Report Given to: HEIDE Transported by: Wheelchair X Stretcher Transported with: X Nurse Transporter X Patent IV O2 Veneer Lathe Operator Location: ICU X MS2
[2020-12-14 04:50] VITALS: BP 149/74
[2020-12-14 07:30] VITALS: BP 176/90
--- NOTE | 2020-12-14 07:30 | NUR ---
PT SLEEPING IN BED. AWAKENED TO COMPLETE ASSESSMENT. PT ABLE TO STATE LOCATION, UNABLE TO VERBALIZE NAME OR CURRENT TIME, REORIENTED PT TO SELF AND TIME. PT WITH PAST MEDICAL HX OF STROKE, 2020. PTS SPEECH GARBLED/SLURRED, PT REPORTS IT IS NORMAL FOR HER. PT C/O DIFFICULTY SWALLOWING, PO MEDICATION HELD AT THIS TIME SPEECH EVAL ORDER PLACED. RT SIDED WEAKNESS, FLACID NOTED. EDEMA TO RT FOOT NOTED +3. PEDAL PULSES WEAK. CLEAR/DIMINISHED BREATH SOUNDS HEARD UPON AUSCULTATION. ACTIVE BOWEL SOUNDS X4 QUADRANTS. PT STATES RT AV SHUNT WAS PLACED APPROXIMATELY 2-3 WEEKS AGO IN [place], DENIES ANY DIALYSIS AT THIS TIME. ASSESSMENT COMPLETED, DISCUSSED POC, REINFORCMENT NEEDED.
--- NOTE | 2020-12-14 09:25 | NUR ---
DR CARREON AND Cinthia TIWARI APRN AT BEDSIDE DISCUSSING POC, EVALUATING SHUNT HEALING, PER MD SHUNT HEALTHY IN APPEARANCE. MD QUESTIONED PT REGARDING SPEECH, PT VERBALIZED IT IS HER NORMAL AND SHE HAS HAD STROKES WHERE SHE WAS IN [facility]. NO NEW ORDERS AT THIS TIME.
--- NOTE | 2020-12-14 10:20 | NUR ---
FRANK PT AT BEDSIDE FOR PHYSICAL THERAPY CONSULT
--- NOTE | 2020-12-14 10:45 | NUR ---
PATIENT REFUSED HER ACCU CHECK.NURSE NOTIFIED.
[2020-12-14 12:15] VITALS: BP 191/88
--- NOTE | 2020-12-14 12:17 | NUR ---
COBY ANDREA AT BEDSIDE COMPLETING SPEECH THERAPY [place]
--- NOTE | 2020-12-14 15:21 | NUR ---
BRENDA OT AT BEDSIDE FOR EVAL
[2020-12-14] MEDS ORDERED: LOSARTAN POTASS50 MG PO (15:22)
[2020-12-14] MEDS ORDERED: CARVEDILOL25 MG PO (15:22)
--- NOTE | 2020-12-14 15:31 | NUR ---
PAIN MEDICATION GIVEN, PT ABLE TO TOLERATE PO. PT C/O OF GENERALIZED PAIN, PT HAS HAD SEVERAL PHONE CALLS THROUGHOUT THE DAY AND EMOTIONAL CONVERSATIONS REGARDING REHAB WITH FAMILY MEMBERS AND CASE MANAGEMENT. PT ENCOURAGED TO RELAX TO HELP WITH HYPERTENSION, PT HYPERTENSIVE IN ED LAST NIGHT, PT REPORTS TO BE HYPERTENSIVE AT HOME, UNKNOWN BASELINE, PT REPORTS IT BEING "HIGH". BP TO BE RE-EVALUATED. CALL LIGHT WITHIN REACH ALONG WITH PERSONAL BELONGINGS.
--- NOTE | 2020-12-14 15:50 | NUR ---
PRN ORDER FOR CLONIDINE 0.1 MG PO OBTAINED BY Cinthia TIWARI APRN FOR SBP >= 170 Q6HRS. ORDER READ BACK, WRITTEN AND FAXED TO PHARMACY.
--- NOTE | 2020-12-14 16:23 | NUR ---
UPON RE-EVALUATION OF BP , PT CONTINUES TO BE HYPERTENSIVE, Cinthia TIWARI APRN NOTIFIED PARAMETER OF KEEPING SBP LESS THAN 170 VERBALLY OBTAINED.
[2020-12-14 16:29] VITALS: BP 189/93
--- NOTE | 2020-12-14 17:46 | NUR ---
NAUSEA WITH ONE EPISODE OF VOMITING. MD SECONDARY TEACHER NOTIFIED, AWAITING ORDERS.
--- NOTE | 2020-12-14 18:29 | NUR ---
ZOFRAN GIVEN FOR CONTINUED NAUSEA & VOMITING EPISODES. IV HEALTHY AND PATENT. PT INSTRUCTED TO PRESS CALL IF VOMITING EPISODES OCCUR. PT VERBALIZED UNDERSTANDING.
--- NOTE | 2020-12-14 19:58 | NUR ---
PATIENT LYING IN BED HOB 45 DEGREES. LYING ON RIGHT SIDE, STATES I THINK MY ARM IS BROKE. PATENT REPOSITIONS NOW LYING ON LEFT CARL WITH RIGHT EXTREMITIES ELEVATED. PERCOCET 5/325 PO GIVEN FOR C/O PAIN 03/22 NOW GENERALIZED PAIN FROM LEGS TO BACK, NOT THE ARM. RESPIRATIONS EASY. HEART RATE REGULAR. FALL PRECAUTIONS MAINTAINED. BED IN LOW POSITION. CALL LIGHT WITHIN REACH.
[2020-12-14 20:00] VITALS: BP 163/88
--- NOTE | 2020-12-15 02:09 | NUR ---
PATIENT WOKE UP YELLING AND ALSO USED CALLLIGHT FOR EMESIS OF 50CC YELLOW CHUNKY EMESIS. ZOFRAN 4MG IV GIVEN FOR N/V. UP TO BSC WITH GI TECH AND MAXIMUM ASSIST.
[2020-12-15 04:00] VITALS: BP 131/69
--- NOTE | 2020-12-15 04:09 | NUR ---
PATIENT CALLED FOR ASSISTANCE. PHLOBOTOMIST AT BEDSIDE. PATIENT HAS N/V WITH 100 CC CHUNKY YELLOWISH EMESIS. ZOFRAN 4MG IV GIVEN APPROXIMATELY 2 HOURS AGO. CALLED M.D. NEW ORDERS RECEIVED. PATIENT NOT CURRENTLY VOMITING.
[2020-12-15 08:00] VITALS: BP 131/69
--- NOTE | 2020-12-15 08:00 | NUR ---
DONI ASLEEP NO COMPLIANTS OR CONCERNS
[2020-12-15 10:37] LABS: HEMATOCRIT 25.7 % (37.0-47.0); HEMOGLOBIN 7.8 g/dl (12.0-16.0); MEAN CELL VOLUME 90.8 fL CALC (80.0-100.0); MEAN CORPUSCULAR HGB 27.6 pG CALC (26.0-32.0); MEAN CORPUSCULAR HGB CONC 30.4 g/dL CAL (32.0-36.0); RED BLOOD COUNT 2.83 mill/uL (4.20-5.60); RED CELL DISTRI WIDTH 12.7 % (11.5-15.5)
[2020-12-15 10:50] LABS: CREATININE 4.4 mg/dL (0.5-1.0); MAGNESIUM 1.9 mg/dL (1.6-2.3)
[2020-12-15 10:53] LABS: POTASSIUM 5.2 mmol/l (3.5-5.1)
--- NOTE | 2020-12-15 12:00 | NUR ---
PATIENT AWAKE ALERT AND ORIENTED, USED BEDSIDE TOILET
--- NOTE | 2020-12-15 15:55 | NUR ---
Patient did AAROM exercises for B LE in supine position doing hip and knee flexion and extension, hip external and internal rotation, hip adduction and abduction, and ankle ROM for 10 reps x 3 sets with constant verbal and tactile cuing to help decrease trick movements and fall risks. Patient also participated with log rolling bed mobility ADLs with constant tactile and verbal cuing to help decrease fall risks (attempted 3 reps, but patient struggled to initiate and carry out ADL, compared of fatigue).
--- NOTE | 2020-12-15 16:10 | NUR ---
PATIENT MEDICATED FOR PAIN IN HAND
--- NOTE | 2020-12-15 19:38 | NUR ---
PATIENT RESTING IN BED AT THIS TIME-AWAKE ALERT AND ORIENTEDX3. PATIENT IS EMOTIONAL AND ASKING FOR MORE SOUP-THIS WAS PROVIDED. PATIENT DENIES ANY NAUSEA AT THIS TIME. PATIENT WITH C/O PAIN TO RIGHT WRIST AREA-NEW AV FISTULA INTACT WITH JENNIFER. NO SWELLING OR REDNESS MOTED.THRILL+, BRUIT+-WAS PLACED A FEW WEEKS AGO IN PREPARATION FOR HD DIALYSIS FOR ESRD. TELFA AND GAUGE WRAP APPLIED FOR PROTECTION. SALINE LOCK INTACT TO LEFT FOREARM. PATIENT WITH RIGHT SIDED WEAKNESS-SWELLING TO RLE IS 3-4+ WITH PULSE PALPABLE. LLE IS ONLY SLIGHTLY SWOLLEN. PATIENT WITH HX OF PREVIOUS CVA-LIMITED USE OF THE RUE. PATIENT DOES HAVE SOME WORD FINDING DIFFICULTY A RESULT OF HER STROKE. SAFETY PRECAUTIONS REINFORCED. CALL LIGHT IN REACH. WILL CONT TO MONITOR.
[2020-12-15 20:00] VITALS: BP 142/78
--- NOTE | 2020-12-15 21:40 | NUR ---
PATIENT ASSISTED OOB TO BSC USE HER SURGICAL BOOT FOR TRANSFER. VOIDED 300CC OF YELLOW URINE AND ASSISTED BACK TO BED. ACCU-CHECK TO NIGHT IS 122-NO COVERAGE NEEDED. PATIENT MEDICATED FOR PAIN WITH PERCOCET FOR BACK AND RIGHT LEG PAIN. SAFETY P[RECAUTIONS REINFORCED. CALL LIGHT IN REACH. WILL CONT TO MONITOR.
[2020-12-16] VITALS (8 sets, daily range): BP systolic 145–170; BP diastolic 79–90
--- NOTE | 2020-12-16 00:22 | NUR ---
PATIENT RESTING IN BED WITH HOB ELEVATED AND EYES CLOSED. RESPS ARE EVEN AND UNLABORED. CALL LIGHT IN REACH. WILL CONT TO MONITOR.
--- NOTE | 2020-12-16 03:57 | NUR ---
PATIENT APPEARS SLEEPING WITH NOB ELEVATED AND EYES CLOSED. RESPS ARE EVEN AND UNLABORED. SALINE LOCK TO LEFT FOREARM INTACT. CALL LIGHT IN REACH. WILL CONT TO MONITOR.
--- NOTE | 2020-12-16 05:58 | NUR ---
DIPAK RESTING IN BED AT THIS TIME. REFUSING TO HAVE LAB WORK DRAWN. CALL LIGHT IN REACH. WILL CONT TO MONITOR.
--- NOTE | 2020-12-16 06:55 | NUR ---
REPORT WAS RECIEVED FROM CAROL PASTRANA. PATIENT IS SLEEPING IN BED WITH NO S/S OF DISTRESS NOTED. CALL LIGHT IN REACH.
--- NOTE | 2020-12-16 08:55 | NUR ---
PATIENT IS SEMI-FOLWERS IN BED. ASSESSMENT DONE. PATIENT IS A&O X3. PATIENT STATED PAIN IN BACK AND RIGHT LEG /. MEDICATED PATIENT WITH OXYCODONE. PATIENT WAS TEARFUL BECAUSE THE BP CUFF WAS HURTING HER. TOOK THE CUFF OFF. O2 IS 95% AT RA. LUNGS SOUND CLEAR/DIMINISHED. +3 RIGHT FOOT EDEMA. PATIENT HAS RIGHT SIDE WEAKNESS THAT IS NOT NEW. RIGHT WRIST AV FISTULA +THRILL AND +BRUIT. PATIENT DENIES ANY OTHER NEEDS AT THIS TIME. CALL LIGHT IN REACH.
--- NOTE | 2020-12-16 09:00 | NUR ---
TELE READING SR 81.
[2020-12-16 09:08] LABS: HEMATOCRIT 25.5 % (37.0-47.0); HEMOGLOBIN 7.9 g/dl (12.0-16.0); IMMATURE GRANULOCYTES 0.3 % (0.0-5.0); MEAN CELL VOLUME 89.5 fL CALC (80.0-100.0); MEAN CORPUSCULAR HGB 27.7 pG CALC (26.0-32.0); NEUT# 7.07 thou/uL (2.00-7.15); RED BLOOD COUNT 2.85 mill/uL (4.20-5.60); RED CELL DISTRI WIDTH 12.6 % (11.5-15.5)
[2020-12-16 09:24] LABS: ALBUMIN 2.9 g/dL (3.2-5.0); CREATININE 4.6 mg/dL (0.5-1.0); POTASSIUM 4.8 mmol/l (3.5-5.1); TOTAL PROTEIN 5.3 g/dL (6.3-8.2)
[2020-12-16 09:27] LABS: BILIRUBIN, TOTAL 0.2 mg/dL (0.0-1.4)
--- NOTE | 2020-12-16 10:00 | NUR ---
DR. DICK ORDER CONSULT WITH . CALLED DR. SALAZAR AND REVIEW LABS WITH HIM. NO NEW ORDERS RECIEVED AT THIS TIME.
--- NOTE | 2020-12-16 10:30 | NUR ---
PATIENT STATING SHE FEELING SOB AND IS TEARFUL. SHE IS COUGHING YELLOW PHLEGMS. O2 READING 95% RA. PATIENT WANTING TO USE THE BSC LICENSED ELECTRICIAN AND I ASSISTED PATIENT TO THE BSC. APPLIED O2 AT 1L VIA NC FOR COMFORT. WE ASSISTED PATIENT BACK IN BED. PATIENT TOOK OFF THE O2 STATED SHE DID NOT WANTED. O2 READING 98% RA. PATIENT DENIES ANY OTHER NEEDS AT THIS TIME. CALL LIGHT IN REACH.
--- NOTE | 2020-12-16 12:02 | NUR ---
PATIENT IS EATING HER LUNCH WITH NO S/S OF DISTRESS NOTED. TOLD PATIENT WILL START THE BLOOD TRANSFUSION AFTER SHE IS DONE WITH LUNCH. PATIENT VERBALIZED UNDERSTANDING. TELE IN PLACE. O2 AT 97% RA. PATIENT DENIES NEEDS. CALL LIGHT IN REACH.
--- NOTE | 2020-12-16 12:30 | NUR ---
PATIENT IS CRYING STATED THAT SHE IS SCARE TO GET THE BLOOD. HAD EXPLAIN TO PATIENT SIDE EFFECT OF BLOOD TRANSFUSION. EXPLAIN TO PATIENT I WILL BE CHECKING HER BP AND MONTIORING HER. PATIENT VERBALIZED UNDERSTANDING. FLUSH PATIENT IV SITE PATIENT STARTED TO CRY THAT IT HURT HER. REMOVED HER IV. X2 NURSE ATTEMPT TO START HER IV BUT UNABLE TO GET BLOOD RETURN. WILL CALL JACE GUTIERREZ.
--- NOTE | 2020-12-16 14:07 | NUR ---
BLOOD TRANSFUSION STARTED. PATIENT IS RESTING IN BED WITH NO S/S OF DISTRESS NOTED. O2 IS 94% RA. WILL BE MONITORING PATIENT. CALL LIGHT IN REACH.
--- NOTE | 2020-12-16 16:03 | NUR ---
PATIENT IS RESTING IN BED WITH NO S/S OF DISTRESS NOTED. PATIENT IS VISITING IN ROOM WITH PATIENT. BLOOD INFUSING WELL. CALL LIGHT IN REACH.
--- NOTE | 2020-12-16 17:14 | NUR ---
ELISSA HAS NOT HAD A BM FOR A FEW DAYS AND PATIENT STATED THAT IT IS HER NORMAL. PATIENT REFUSED THE MILK OF MAG. PATIENT DENIES NEEDS. PATIENT IS USING HER CELL PHONE. CALL LIGHT IN REACH.
--- NOTE | 2020-12-16 17:19 | NUR ---
BLOOD TRANSFUSION COMPLETE. PATIENT TOLERATED WELL. PATIENT DENIES NEEDS AT THIS TIME. CALL LIGHT IN REACH.
--- NOTE | 2020-12-16 19:19 | NUR ---
PATIENT RESTING IN BED AT THIS TIME WATCHING TV. PATIENT CONT TO BE SOMEWHAT DEPRESSED. HOB ELEVATED. PATIENT WITH IV SITE TO LEFT FOREARM INTACT. AV FISTULA TO RIGHT WRIST INTACT WITH THRILL+, BRUIT+. DRESSING INTACT. PATIENT CONT TO C/O OF TENDERNESS AT THE SITE. TELE MONITOR INTACT AND READING SR-90'S. PROVIDED WITH APPLE JUICE PER PATIENT REQUEST. SAFETY PRECAUTIONS REINFORCED. CALL LIGHT IN REACH. WILL CONT TO MONITOR.
--- NOTE | 2020-12-16 21:12 | NUR ---
PATIENT RESTING IN BED AT THIS TIME-WAS UP TO THE BSC FOR BM-MODERATE AMT OF FORMED DARK GREEN STOOL. PATIENT IS ON FERROUS SULFATE DAILY. PATIENT CONT TO REFUSE TO TAKE HER LOVENOX ORDERED EVEN AFTER BEING EDUCATED ON THE USE OF THE DRUG. PATIENT C/O SEVERE PAIN TO RIGHT LE AND BACK-9/10 ON PAIN SCALE. MEDICATED WITH PERCOCET ORDERED. BP-168/88, HR-92-HS MEDS INCLUDING APRESOLINE AND IMDUR GIVEN. SAFETY PRECAUTIONS REINFORCED. CALL LIGHTIN REACH. WILL CONT TO MONITOR.
[2020-12-17] VITALS: BP 154/82
--- NOTE | 2020-12-17 00:22 | NUR ---
PATIENT ASSISTED OOB TO THE BSC TO VOID AND THEN BACK TO BED USING HER ORTHO BOOT TO AID IN TRANSFER. TELE MONITOR IN PLACE WITH THE LAST READING BEING SR-91. CALL LIGHT IN REACH. WILL CONT TO MONITOR.
--- NOTE | 2020-12-17 03:07 | NUR ---
PATIENT AWAKE RESTING IN BED-WATCHING TV. NO COMPLAINTS AT THIS TIME. TELE MONITOR IN PLACE. CALL LIGHT IN REACH. WILL CONT TO MONITOR.
[2020-12-17 04:00] VITALS: BP 148/76
--- NOTE | 2020-12-17 04:49 | NUR ---
PATIENT RESTING IN BED AT THIS TIME WITH NO COMPLAINTS. PATIENT DID ALLOW LAB WORK TO BE DRAWN THIS MORNING WITHOUT ANY DIFFICULTY. TELE MONITOR IN PLACE WITH LAST READING BEING SR-98. SALINE LOCK TO LEFT WRIST INTACT. AND DRESSING TO AV FISTULA SITE INTACT. SAFETY PRECAUTIONS REINFORCED. CALL LIGHT IN REACH. WILL CONT TO MONITOR.
[2020-12-17 05:10] LABS: HEMATOCRIT 27.3 % (37.0-47.0); HEMOGLOBIN 8.5 g/dl (12.0-16.0); IMMATURE GRANULOCYTES 0.2 % (0.0-5.0); MEAN CELL VOLUME 89.5 fL CALC (80.0-100.0); MEAN CORPUSCULAR HGB 27.9 pG CALC (26.0-32.0); MEAN CORPUSCULAR HGB CONC 31.1 g/dL CAL (32.0-36.0); NEUT# 4.97 thou/uL (2.00-7.15); RED BLOOD COUNT 3.05 mill/uL (4.20-5.60); RED CELL DISTRI WIDTH 12.7 % (11.5-15.5)
[2020-12-17 05:19] LABS: ALBUMIN 2.8 g/dL (3.2-5.0); CREATININE 4.6 mg/dL (0.5-1.0); POTASSIUM 4.9 mmol/l (3.5-5.1)
--- NOTE | 2020-12-17 07:00 | NUR ---
PT REPORT RECEIVED FROM NIGHT NURSEVICTORIANO.
--- NOTE | 2020-12-17 08:00 | NUR ---
PT WAS FOUND RESTING IN BED EATING BREAKFAST;PT IS A&OX3;VS AND ASSESSMENT WERE COMPLETED;PT EXPERIENCES RT-SIDED WEAKNESS AND SOME EXPRESSIVE APHASIA DUE TO HX OF CVAS;PT HAS NO COMPLAINTS OF PAIN AT THIS TIME;HEART SOUNDS ARE REGULAR IN RATE AND RHYTHM;LUNG SOUNDS ARE CLEAR AND DIMINISHED IN THE LOWER LOBES;RESPIRATIONS ARE EVEN AND UNLABORED ON RA;PT IS REPORTING A NON-PRODUCTIVE COUGH;#20G IV IN LFA IS SL, PATENT AND FREE OF COMPLICATIONS AT THIS TIME;PT HAS A AV FISTULA IN THE RW WITH GOOD THRILL AND BRUIT PRESENT;PT HAS 3+EDEMA PRESENT BILATERALLY IN THE LOWER EXTREMETIES WITH MORE SWELLING PRESENT IN THE RT LEG;SAFETY PRECAUTIONS IN PLACE;CALL LIGHT WITHIN REACH;BED IN LOWEST POSITION;PT ENCOURAGED TO CALL WITH ANY NEEDS OR CONCERNS;
--- NOTE | 2020-12-17 08:27 | NUR ---
patient refused her accucheck, nurse notified.
[2020-12-17 08:30] VITALS: BP 140/79
--- NOTE | 2020-12-17 09:18 | NUR ---
RECEIVED PHARMACY CONSULT FROM DR SALAZAR FOR RETACRIT PHARMACY TO DOSE. PT BP HAS BEEN UNCONTROLLED DURING STAY, USUALLY IN 160S/80S. CONTACTED DR SALAZAR, ADVISED TO HOLD RETACRIT DUE TO UNCONTROLLED BP
--- NOTE | 2020-12-17 12:00 | NUR ---
PT RETURNED FROM BARIUM SWALLOW PROCEDURE;PT IS RESTING IN BED EATING LUNCH;SAFETY PRECAUTIONS IN PLACE;CALL LIGHT WITHIN REACH;BED IN LOWEST POSITION;PT ENCOURAGED TO CALL WITH ANY NEEDS OR CONCERNS;WILL CONTINUE TO MONITOR.
--- NOTE | 2020-12-17 13:22 | NUR ---
Patient did seated B LE AAROM exercises doing hip flexion, hip adduction and abduction, hamstring curls, knee extension, gluteal squeezes, and ankle AAROM exercises for 15 reps x 3 sets with constant verbal and tactile cuing to help decrease trick movements and fall risks. Patient did log rolling bed mobility and sit to stand push off transfer ADLs for 2 to 3 attempts with constant verbal and tactile cuing to help decrease trick movements and fall risks. Patient walked with CGA x 1 with R LE boot covering 3 to 5 steps from bed to wheelchair and back with constant verbal and tactile cuing to decrease fall risks.
[2020-12-17 14:45] VITALS: BP 158/85
--- NOTE | 2020-12-17 14:46 | NUR ---
Pt seen at bedside during breakfast to provide further education on safe swallow strategies and to begin introduction and training for word-finding strategies. Pt was observed to have multiple instances of coughing and throat clearing following PO intake of solids and thin liquids. Pt used independent liquids assist leading to overt s/s of aspiration characterized by multiple coughs and coughing up residue. Pt stated she has been having difficulty over the weekend. Pt educated on the use of an effortful swallow that she utilized 3x with improved clearance and response to PO trials. Physician contacted for MBSS order based on observations during meal time. Pt appeared SOB towards the end of the meal increasing her risks of aspiration. MBSS order received. Pt educated and participated in word-finding strategies using semantic feature analysis for confrontation naming and word-finding in conversation. Pt was easily frustrated and expected the COMBINER to fill in the blank. Pt educated on the importance of utilizing strategies to improve neural connections. Pt did not want to utilize SFA chart, however she achieved 50% accuracy of cued word retrieval using verbal prompts for object characteristics
--- NOTE | 2020-12-17 16:00 | NUR ---
PT WAS FOUND SLEEPING IN BED;#20G IV IN LFA IS SL, PATENT AND FREE OF COMPLICATIONS AT THIS TIME; SAFETY PRECAUTIONS IN PLACE;CALL LIGHT WITHIN REACH;BED IN LOWEST POSITION;WILL CONTINUE TO MONITOR.
[2020-12-17 19:00] VITALS: BP 175/84
--- NOTE | 2020-12-17 20:04 | NUR ---
PHYSICAL ASSESMENT COMPLETE. PT CURRENTLY DENIES PAIN OR DISCOMFORT. SCHEDULED MEDICATIONS AND PRN MEDICATION ADMINISTERED, SEE E-MAR. PT DENIES ANY NEEDS AT THIS TIME. PLAN OF CARE REVIEWED, PT DENIES QUESTIONS, VERBALIZES UNDERSTANDING. ITEMS WITHIN REACH, BED LOCKED IN LOW POSITION W/ BEDRAILS UP X2. CALL SHANKAR WITHIN REACH, AGREES TO CALL PRN.
--- NOTE | 2020-12-17 20:05 | NUR ---
PT REFUSED HUMALOG AND LOVENOX. THE ADVANTAGES TO TAKING BOTH THESE MEDICATIONS WERE EXPLAINED TO THE PT. SHE REFUSED.
[2020-12-17 22:00] VITALS: BP 182/90
--- NOTE | 2020-12-18 | NUR ---
PT RESTING IN BED, NO SIGNS OF DISTRESS NOTED, RESP EVEN AND UNLABORED. PT VOICES NO NEEDS OR COMPLAINTS AT THIS TIME. CALL LIGHT IN REACH, CONTINUE TO MONITOR.
[2020-12-18 04:00] VITALS: BP 159/82
--- NOTE | 2020-12-18 04:40 | NUR ---
PT LAYING IN BED WITH EYES CLOSED, APPEARS TO BE SLEEPING, APPEARS COMFORTABLE AND IN NO DISTRESS. RESPIRATIONS REGULAR AND UNLABORED. ITEMS REMAIN WITHIN REACH, CALL SHANKAR REMAINS WITHIN REACH. BED REMAINS LOCKED AND IN LOW POSITION WITH BEDRAILS UP X2. WILL CONTINUE TO MONITOR.
[2020-12-18 05:13] LABS: CREATININE 4.9 mg/dL (0.5-1.0)
--- NOTE | 2020-12-18 06:34 | NUR ---
PATIENT REFUSED HER ACCUCHECK. NURSE NOTIFIED.
[2020-12-18 08:10] VITALS: BP 157/86
--- NOTE | 2020-12-18 08:10 | NUR ---
ASSESSMENT IS COMPLTED: IV SITE IS FREE FROM REDNESS OR EDEMA. HR IS REG,PULSES ARE STRONG X4, ABD IS SOFT WITH ACTIVE BS. BREATH SOUNDS ARE CLEAR,BILATERALLY. +2 EDEMA NOTED. ON FEET. CONTINUE TO OSBERVE AND MONITOR.
[2020-12-18 08:49] VITALS: BP 157/86
--- NOTE | 2020-12-18 09:34 | NUR ---
Pt received semi-upright in bed on room air. Pt repositioned upright for PO trials. Pt c/o being cold. RN aware and warm blanket was provided to patient by RN prior to therapy session. Pt endorses in some solids being too dry and sticky. She refused most therapeutic PO trials however, was agreeable to PO trials of pureed solids and thin liquids. Pt tolerated pureed solids without overt s/s of penetration/aspiration. Gentle throat clear appreciated 1x with thin liquids via straw. No overt coughing appreciated. Therapist educated patient on diet texture recommendations for regular solids and thin liquids. Discussed possibility of diet downgrade with patient however, patient able to express difficulties with some solids therefore, diet downgrade not needed at this time. Therapist educated patient to avoid sticky/hard foods. Pt expressed understanding. Aspiration precautions to include: HOB upright for PO intake, small bites and sips, slow rate, alternate liquids and solids, and remain upright for >30 minutes after PO.
[2020-12-18] MEDS ORDERED: DOXYCYCL HYC100 MG PO (10:32)
--- NOTE | 2020-12-18 10:42 | NUR ---
PT NEEDS OUT PT SPEECH, THERAPY PER OUT SPEECH THERAPIST
--- NOTE | 2020-12-18 10:55 | NUR ---
patient refused accucheck, nurse notified.
--- NOTE | 2020-12-18 12:00 | NUR ---
PT IS RELAXING IN BED WITH NO DISTRESS NOTED IV SITE IS FREE FROM REDNESS OR EDEMA.
--- NOTE | 2020-12-18 14:59 | NUR ---
Patient did B LE AROM exercises in seated position doing hip flexion, hip adduction and abduction, hamstring curls, knee flexion, gluteal squeezes, and ankle AROM for 15 reps x 2 sets with occasional verbal and tactile cuing to help decrease trick movements and fall risks. Patient did log rolling bed mobility and sit to stand push off transfers (did 2 to 3 reps) with min to CGA x 1 with constant verbal and tactile cuing to help decrease fall risks. Patient did gait training with Min to CGA x 1 covering 5 to 10 feet on level surfaces with constant verbal and tactile cuing to help decrease fall risks.
--- NOTE | 2020-12-18 16:05 | NUR ---
PT IS RELAXING IN BD WITH NO DISTRESS NOTED. IV SITE IS FREE FROM REDNESS OR EDEMA.
--- NOTE | 2020-12-18 17:52 | NUR ---
SPOKE WITH PT OLDEST DAUGHTER AN INQUIRED HOW PT WAS, PT IS NOT WANTING TO GO TO REHAB. DAUGHTER IS CONCERNED.
--- NOTE | 2020-12-20 09:27 | NUR ---
Pneumonia post discharge follow up call completed today, 11/19/20. Pt. states she is doing well. No fever, chills, or SOB. Follow up appt. with PCP scheduled for today. Pt. has not obtained medication prescribed at discharge but plans to get it today. No questions or concerns expressed at this time.
== END 2020-12-18 14:21 | disposition home health service (06) ==
LOC: ED 01:13 → ED-I 03:18 → ED 03:32 → MS2 03:33 → ICU 12-15 17:33 → MS2 12-17 07:54
PROVIDERS: Family Medicine; Internal Medicine; Internal Medicine Nephrology; Nurse Practitioner; Nurse Practitioner Family; ADMIT Internal Medicine; ATTEND Internal Medicine
PROC: 30233N1 Transfusion of Nonautologous Red Blood Cells into Peripheral Vein, Percutaneous Approach (ICD-10-PCS; principal; 2020-12-16)
DX: J18.9 Pneumonia, unspecified organism (principal); N17.9 Acute kidney failure, unspecified; I12.0 Hypertensive chronic kidney disease with stage 5 chronic kidney disease or end stage renal disease; E11.22 Type 2 diabetes mellitus with diabetic chronic kidney disease; N18.5 Chronic kidney disease, stage 5; D63.1 Anemia in chronic kidney disease; Z95.828 Presence of other vascular implants and grafts; E87.5 Hyperkalemia; E87.1 Hypo-osmolality and hyponatremia; E87.2 Acidosis; I16.0 Hypertensive urgency; I69.392 Facial weakness following cerebral infarction; I69.351 Hemiplegia and hemiparesis following cerebral infarction affecting right dominant side; E11.40 Type 2 diabetes mellitus with diabetic neuropathy, unspecified; F31.9 Bipolar disorder, unspecified; F41.0 Panic disorder [episodic paroxysmal anxiety]; G47.30 Sleep apnea, unspecified; M54.9 Dorsalgia, unspecified; G89.29 Other chronic pain; F17.210 Nicotine dependence, cigarettes, uncomplicated; I25.2 Old myocardial infarction; Z20.822 Contact with and (suspected) exposure to COVID-19
CPT/HCPCS: G0378; J1650; P9016

== ENCOUNTER 2020-12-27 18:00 | Inpatient (IN) | payer MEDICARE, MEDICAID ==
[~2020-12-27] VITALS: Ht 177.8 cm; Wt 93.0 kg
[~2020-12-27 18:00] MED LIST changes: +CARVEDILOL25 MG PO
--- NOTE | 2020-12-27 18:02 | NUR ---
TO ROOM VIA WHEELCHAIR, ACCOMPANIED BY VISITOR.
[2020-12-27 18:40] LABS: HEMATOCRIT 31.3 % (37.0-47.0); IMMATURE GRANULOCYTES 0.1 % (0.0-5.0); MEAN CELL VOLUME 88.4 fL CALC (80.0-100.0); MEAN CORPUSCULAR HGB 28.2 pG CALC (26.0-32.0); MEAN CORPUSCULAR HGB CONC 31.9 g/dL CAL (32.0-36.0); NEUT# 12.73 thou/uL (2.00-7.15); RED BLOOD COUNT 3.54 mill/uL (4.20-5.60); RED CELL DISTRI WIDTH 12.9 % (11.5-15.5)
[2020-12-27 18:51] LABS: ALBUMIN 3.6 g/dL (3.2-5.0); ANION GAP 18 (6-22 (CALC)); BUN 78 mg/dL (7-17); CARBON DIOXIDE 19 mmol/l (22-30); CHLORIDE 105 mmol/l (95-108); POTASSIUM 4.8 mmol/l (3.5-5.1); SGOT/AST 17 u/l (14-36); SODIUM 138 mmol/l (137-146)
--- NOTE | 2020-12-27 18:51 | NUR ---
ASSUMED CARE OF PATIENT.
[2020-12-27 18:59] LABS: ALKALINE PHOSPHATASE 77 u/l (38-126); BILIRUBIN, TOTAL 0.3 mg/dL (0.0-1.4); BUN/CREATININE RATIO 14 (12-20 (CALC)); GFR 9 ML/MIN (>=60 (CALC)); GFR FOR AFR.AMER. 10 ML/MIN (>=60 (CALC)); TOTAL PROTEIN 6.7 g/dL (6.3-8.2)
[2020-12-27 19:00] LABS: CREATININE 5.5 mg/dL (0.5-1.0)
--- NOTE | 2020-12-27 19:15 | NUR ---
PATIENT COMPLAINING OF CONTINUED PAIN 04/21. MADE AWARE ANDORDERS RECEIVED.
--- NOTE | 2020-12-27 19:36 | NUR ---
PATIEMT MEDICATED PER EMAR, WARM BLANKETS PROVIDED AND PATIENT NOW RESTING WITH EYES CLOSED. CONTINUING TO MONITOR AND AWAIT DIAGNOSTIC RESULTS. SPOUSE AT BEDSIDE, CALL LIGHT IN REACH.
--- NOTE | 2020-12-27 20:45 | NUR ---
PATIENT UP TO [facility], URINE AND STOOL IN [facility], UNABLE TO OBTAIN URINE SPECIMEN AT THIS TIME.
--- NOTE | 2020-12-27 20:58 | NUR ---
Reassessment of patient completed. PT UPDATED ON STATUS.
--- NOTE | 2020-12-27 21:00 | NUR ---
UNABLE TO RECONCILE HOME MEDS, PATIENT STATES SHE DOES NOT KNOW WHAT SHE TAKES. CONSULT FOR PHARMACY ENTERED.
--- NOTE | 2020-12-27 21:32 | NUR ---
REPORT TO CAROL FATIMA
[2020-12-27] MEDS ORDERED: TERAZOSIN5 MG PO (21:50)
[2020-12-27] MEDS ORDERED: PRAVASTATIN20 MG PO (21:52)
[2020-12-27] MEDS ORDERED: LOSARTAN POTASS50 MG PO (21:54)
--- NOTE | 2020-12-27 21:56 | NUR ---
SPOUSE BROUGHT IN BAG OF MEDICATIONS FROM HOME, MEDICATIONS RECONCILED AT THIS TIME.
[2020-12-27 22:10] VITALS: BP 198/97
--- NOTE | 2020-12-27 22:10 | NUR ---
PT ARRIVED TO FLOOR VIA STRETCHER ACCOMPAINED BY ER STAFF. PT UPSET CRYING OUT IN PAIN AND TEARFUL. PT TRANSFERED FROM STRETCHER TO BED X3 PERSON ASSIST. PT A&OX3. RESPIRATIONS EVEN AND UNLABORED. IV SITE APPEARS HEALTHY. GENERALIZED EDEMA. SKIN INACT. RIGHT SIDED WEAKNESS DUE TO PREVIOUS STROKE. DISCUSSED POC AND SAFETY PRECAUTIONS. PT VERBALIZED UNDERSTANDING. ORIENTED TO ROOM AND CALL LIGHT SYSTEM. CALL LIGHT WITHIN REACH. WILL CONTINUE TO MONITOR.
--- NOTE | 2020-12-27 22:21 | NUR ---
Admission Note Report Given to: MONTSERRAT FATIMA Transported by: Wheelchair Y Stretcher Transported with: Y Nurse Transporter Y Patent IV O2 Y Satellite Dish Repairer Location: ICU Y MS2
--- NOTE | 2020-12-27 23:03 | NUR ---
PT BEGAN VOMITING MODERATE AMOUNT OF YELLOW/GREEN BILE. MEDICATED WITH PRN ZOFRAN. WILL HOLD XANAX DOSE UNTIL N/V HAS RESOLVED.
[2020-12-28] VITALS (8 sets, daily range): BP systolic 155–186; BP diastolic 81–93
--- NOTE | 2020-12-28 02:03 | NUR ---
PT RESTING IN BED WITH EYES CLOSED. NO APPARENT DISTRESS NOTED. RESPIRATIONS EVEN AND UNLABORED. CALL LIGHT WITHIN REACH. WILL CONTINUE TO MONITOR.
--- NOTE | 2020-12-28 04:01 | NUR ---
PT MEDICATED WITH PRN APAP FOR HEADACHE AND BACK PAIN. NO APPARENT DISTRESS NOTED. RESPIRATIONS EVEN AND UNLABORED. CALL LIGHT WITHIN REACH. WILL CONTINUE TO MONITOR.
--- NOTE | 2020-12-28 07:19 | NUR ---
PATIENT RESTING IN BED AT THIS TIME. PATIENT SEAN ANY PAIN AT THIS TIME. PATIENT REFUSED TO HAVE LAB DRAWLS DONE. PATIENT EDUCATED ON THE PURPOSE OF LABS AND PATIENT STILL REFUSED AT THIS TIME. WILDLAND FIRE OPERATIONS SPECIALIST DONE PATIENT HAS RIGHT SIDED WEAKNESS DUE TO PREVIOUS STROKE. AND PATIENT HAS R WRIST SHUT IN PLACE. LUNG OLIVO ARE CLEAR AND BOWEL SOUNDS PRESENT IN ALL QUADRANTS AT THIS TIME. PATIENT EXHIBITS GENERALIZED EDEMA AND 3+ BILATERAL LOWER EXTREMITIES. SIDERAILS ARE UP CALL LIGHT IS WIHTIN REACH.
--- NOTE | 2020-12-28 10:12 | NUR ---
CALLED DR. SALAZAR OFFICE AT [phone] SPOKE TO HUGO TOLD HER OF CONSULTATION ON MED SURG FLOOR. HER RESPONSE WAS SHE WILL GIVE IT TO HIM DIRECTLY.
--- NOTE | 2020-12-28 10:15 | NUR ---
PATIENT REFUSED HER ACCUCHECK, NURSE NOTIFIED.
--- NOTE | 2020-12-28 10:56 | NUR ---
PATIENT REFUSING TO HAVE ACCU CHECK DONE AT THIS TIME. PROVIDER DR. CARREON MADE AWARE. NO NEW ORDERS GIVEN.
--- NOTE | 2020-12-28 11:28 | NUR ---
PT REFUSED BRONCHODILATOR THERAPY AT THIS TIME. PT STATES "WHY? MY BREATHING IS GOOD AND I AM SLEEPING". NAD NOTED. VSS. BBS=. DYER ASSISTANT TO MONITOR. WILL ATTEMPT TO ADMINSTER NEXT SCHED DOSE AT APPROX 1500 HOURS.
--- NOTE | 2020-12-28 12:00 | NUR ---
PATIENT IN BED ALERT AND ORIENTED AT THIS TIME. PATIENT DENIES ANY NEEDS CURRENTLY. PATIENT EATING LUNCH. SIDERAILS ARE UP CALL LIGHT WITHIN REACH.
[2020-12-28 13:10] LABS: URINE BILIRUBIN - DIPSTICK NEGATIVE (NEGATIVE); URINE BLOOD DIPSTICK MODERATE (NEGATIVE); URINE COLOR YELLOW; URINE GLUCOSE - DIPSTICK NEGATIVE (NEGATIVE); URINE KETONE NEGATIVE (NEGATIVE); URINE LEUK ESTERASE NEGATIVE (NEGATIVE); URINE PROTEIN - DIPSTICK >=300 mg/dL (NEG-TRACE); URINE UROBILINOGEN - DIPSTICK 0.2 E.U./dL (0.2)
[2020-12-28 13:15] LABS: URINE NITRITE - DIPSTICK NEGATIVE (Negative)
[2020-12-28 13:17] LABS: URINE EPITHELIAL CELLS FEW EPI/hpf (0-FEW); URINE RBC 25-50 RBC/hpf (0-5)
[2020-12-28] MEDS ORDERED: CLONIDINE0.1 MG TD (13:25)
[2020-12-28] MEDS ORDERED: GABAPENTIN100 MG PO (13:26)
--- NOTE | 2020-12-28 14:38 | NUR ---
PATIENT COMPLAINING OF PAIN IN BACK AT THIS TIME. PATIENT STATES HER PAIN IS A SIX OUT OF 0-10 PAIN SCALE. PATIENT GIVEN 50MG OF TRAMADOL PO AT THIS TIME. WILL CONTINUE TO MONITOR.
--- NOTE | 2020-12-28 15:38 | NUR ---
PATIENT STATES HER BACK PIAN IS A 3 AT THIS TIME. WILL CONTINUE TO MONITOR.
--- NOTE | 2020-12-28 15:43 | NUR ---
PATIENT RESTING IN BED AT THIS TIME. PATIENT STATES HER PAIN IS A 3 AT THIS TIME. PATIENT SIDERAILS ARE UP X 2 CALL LIGHT WITHIN REACH. PATIENT IV SITE PATENT AND FLUSHED AT THIS TIME.
--- NOTE | 2020-12-28 16:16 | NUR ---
patient refused her accucheck. nurse notified.
--- NOTE | 2020-12-28 17:17 | NUR ---
Pharmacy consult placed for Retacrit. Pt currently with uncontrolled HTN. Per Dr Ford, will discontinue Retacrit dosing.
--- NOTE | 2020-12-28 19:22 | NUR ---
1921-Pt is extremely emotional. Complaints of pain. Attending nurse Beatriz notified. Pt states that she takes [place] at home for back pain. I will also notify Sb. Pt is stable. Does show signs of sadness. During this shift I will continue to help this patient. Bed low and locked. Call light and phone within reach.
--- NOTE | 2020-12-28 19:50 | NUR ---
PT EMOTIONAL, CRYING, ASKING FOR PAIN MEDICATION, I REVIEWED MEDICATION SCHEDULE WITH HER. SHE KEEPS SAYING "MAMA" AND CRYING. PT ASSESSED AT THIS TIME. LEFT ARM APPEARS TO HAVE WEAKNESS REPORTEDLY DUE TO PRIOR STROKE. LEFT ARM SUPPORTED ON PILLOW. MODERATE WEAKNESS TO RLE ALSO, BUT SHE WAS ABLE TO LIFT WITH GOOD ROM
--- NOTE | 2020-12-28 20:29 | NUR ---
PT CRYING STATING HER "BACK HURTS" I ASKED PT WHAT BROUGHT HER IN SHE REPORTED "MY BACK HURT" I ASKED HER IF THIS WAS A NEW SYMPTOM SHE STATED "IT HAS HURT FOR YEARS AND NOBODY WILL GIVE ME ANYTHING." I ASKED HER WHAT SHE TAKES AT HOME FOR HER BACK PAIN SHE STATED "NORCO." SHE WAS UNABLE TO TELL ME WHAT DOCTOR GIVES HER THE NORCO. SHE THEN TOLD ME THAT HER WORKS AND "CAN'T TAKE HER TO THE DOCTOR ANYMORE EVER." PHYSICIAN NOTIFIED OF REQUEST FOR ADDITIONAL PAIN MEDICATION. PT MEDICATED ALREADY ORDERS PROVIDE WITH TRAMADOL.
--- NOTE | 2020-12-28 21:04 | NUR ---
PT CALLED TO REPORT SHE IS STILL IN PAIN. PT MEDICATED ORDERS ALLOW, AWAITING NEW ORDERS FROM PHYSICIAN DIRECTOR OF EDUCATION, HE HAS BEEN NOTIFIED OF REQUEST BY PT.
--- NOTE | 2020-12-28 21:11 | NUR ---
NITISH PROVIDE PER REQUEST.
--- NOTE | 2020-12-28 22:00 | NUR ---
RECEIVED NEW PAIN MEDICATION ORDERS. PT IS RESTING WITH EYES CLOSED AT THIS TIME. APPEARS MUCH CALMER THAN PREVIOUSLY, SINCE BEING MEDICATED FOR ANXIOUSNESS. WILL CONTINUE TO MONITOR FOR NEEDS.
--- NOTE | 2020-12-28 23:34 | NUR ---
RECEIVED PHONE CALL FROM WITH ORDERS TO MAKE THE PT NPO FOR POSSIBLE DIALYSIS PORT PLACEMENT TOMORROW.
--- NOTE | 2020-12-29 00:50 | NUR ---
0050-Pt given dilaudid for severe pain level 9 out of 10. Pt complains in throbbing pain in upper/middle back. Will reasses
--- NOTE | 2020-12-29 01:20 | NUR ---
PT MEDICATED FOR NAUSEA AT THIS TIME. PT VOMITED 50CC OF CLEAR/YELLOW THICK LIQUID.
--- NOTE | 2020-12-29 01:20 | NUR ---
0120-Pt new right wrist fistula assessed. No s/s of erythema, focal masses or focal swelling. Area of insertion palpated and thrill was felt. Auscultated the area with my stethoscope and was able to hear and detect bruit. Pt tolerated well and pink alert band applied to right wrist. Sb was also at bedside.
--- NOTE | 2020-12-29 04:04 | NUR ---
V/S ASSESSED, PT WAS SLEEPING WE ENTERED THE ROOM. SHE IMMEDIATELY STARTED DRY HEAVING AND ASKED FOR SOMETHING FOR NAUSEA, PT HAS ALREADY BEEN MEDICATED FOR THIS RECENTLY.
[2020-12-29 04:09] VITALS: BP 130/73
--- NOTE | 2020-12-29 04:10 | NUR ---
PT IS NOW LAYING CALMLY WITH EYES CLOSED MAKING SLIGHT SONOROUS SOUNDS, NO S/O DISTRESS NOTED. SHE DOES HAVE EMESIS BAG IN HAND AND CALL LIGHT AT SIDE.
[2020-12-29 05:58] LABS: ALBUMIN 2.8 g/dL (3.2-5.0); POTASSIUM 5.7 mmol/l (3.5-5.1)
[2020-12-29 05:59] LABS: CREATININE 5.3 mg/dL (0.5-1.0)
--- NOTE | 2020-12-29 06:05 | NUR ---
PT MEDICATED ORDERS PROVIDE FOR ANXIOUSNESS AND PAIN. LASIX ALSO ADMINISTERED AT THIS TIME. PT JUST KEEPS REPEATING "I DON'T FEEL GOOD, MOMMY." PT DID TELL ME WHERE SHE IS AND LOC TO SELF AND . THEN SHE STARTS SAYING "MOMMY" AGAIN.
--- NOTE | 2020-12-29 06:08 | NUR ---
WEIGHT CONFIRMED ALSO AT THIS TIME.
--- NOTE | 2020-12-29 06:09 | NUR ---
CRITICAL LAB VALUES RECIVED FROM LAB, [facility]. BUN 80 (78), CREATININE 5.3 (5.5). ASSIGNED NURSE, SARA METCALF RN NOTIFIED OF CRITICAL LAB VALUES. CHAIR INSTALLER PHYSICIAN NOTIFIED OF CRITICAL LAB VALUES, NO NEW ORDERS GIVEN AT THIS TIME. WILL CONTINUE TO [facility].
--- NOTE | 2020-12-29 06:09 | NUR ---
PT CALLED WHILE I WAS STILL JUST OUTSIDE THE DOOR OF HER ROOM, UPON ENTERING SHE WAS MUMMBLING AND HITTING TV BUTTON. WHEN I ASKED HER WHAT SHE NEEDED SHE STATED VOLUME. I SHOWED HER THE VOLUME BUTTON AND ASSISTED HER, SHE SAID "NO, VOLUME" AND THEN CHANGED THE CHANNEL STATING "OH OKAY." DENIED OTHER ASSISTANCE.
[2020-12-29 07:05] VITALS: BP 153/80
--- NOTE | 2020-12-29 07:05 | NUR ---
PATIENT IN BED AWAKE ALERT AND ORIENTED X 3 DENIES ANY PAIN AT THIS TIME. PATIENT IS NPO DUE TO POSSIBLE TESSO CATH PLACEMENT TODAY. PATIENT FILTER PLANT SUPERVISOR DONE SEE INTERVENTIONS. PATIENT HAS RIGHT WRIST SHUNT PLACE AND GOOD BRUESE AUDIABLE. PATIENT REFUSING LABS AT THIS TIME. ACCU CHECK OBTAIN AND IS 96 CURRENTLY. SIDERAILS ARE UP X 2 CALL LIGHT AND PERSONAL ITEMS WITHIN REACH.
--- NOTE | 2020-12-29 11:35 | NUR ---
DR. MORTENSEN IN TO SEE PATIENT AT THIS TIME. DR. MORTENSEN GAVE ORDERS TO RESTART PATIENT BACK ON DIET AND STATED HE WILL SPEAK TO DR. NAYAK REGARDING THE PLACEMENT OF THE TESSEO CATH. PATIENT ADVISED THAT THIS PROCEEDURE IS ON HOLD AT THIS ITCO. PATIENT VERBALIZES UNDERSTANDING. SIDERAILS ARE UP CALL LIGHT [facility] REACH .
--- NOTE | 2020-12-29 14:36 | NUR ---
Patient did log rolling bed mobility and push off sit to stand transfers for 3 reps with mod to min A x 1 with constant verbal and tactile cuing to help decrease trick movements and fall risks. Patient did AAROM on the R LE and AROM on the L LE doing hip flexion, knee extension, hamstring curls, hip adduction and abduction, gluteal squeezes, and ankle ROM for 10 reps x 2 sets with constant verbal and tactile cuing to decrease trick movements and fall risks. Patient walked today covering 8 feet x 3 reps with her R boot for support and receiving mod A x 1 on level surfaces to decrease trick movements and fall risks.
[2020-12-29 15:28] VITALS: BP 153/83
--- NOTE | 2020-12-29 16:09 | NUR ---
PATIENT LAYING IN BED AT THIS TIME. PATIENT DENIES ANY NEEDS AT THIS TIME. SIDERAILS ARE UP CALL LIGHT IS WITHIN REACH.
--- NOTE | 2020-12-29 19:18 | NUR ---
PT CALLED ASKING FOR PAIN MEDICATION. MEDICATIONS PROVIDED FOR PM MEDS AND ALSO FOR PAIN REPORTED 9/10 ON PAIN SCALE TO MID BACK AREA. UPON ENTERING THE ROOM, PT ASKED FOR HER PHONE OFF OF THE CONTRACT ENGINEER SO SHE COULD CHECK MESSAGES AND ASKED FOR IT TO BE PLACED BACK TO CONTRACT ENGINEER. TV ON AND LIGHTS DOWN LOW. PT APPEARS CALM, WHEN ASKED HOW SHE IS FEELING TONIGHT SHE REPLIED, "JUST TIRED." LUNG SOUNDS ARE CLEAR, EDEMA TO BLE 2+. RIGHT ARM ELEVATED ON PILLOW AND FISTULA ASSESSED WITH GOOD THRILL/BRUIT.
[2020-12-29 19:45] VITALS: BP 155/84
--- NOTE | 2020-12-29 21:43 | NUR ---
PT CALLED CRYING, MOANING, GROANING STATING "THAT MEDICINE ISN'T WORKING, MY BACK IS HURTING, I CAN'T HANDLE IT." I DISCUSSED WITH HER THE FACT THAT THE STRONGER PAIN MEDICATIONS MADE HER SICK TO HER STOMACH LAST NIGHT EVEN THOUGH SHE HAD ZOFRAN, SHE WAS DRY HEAVING LAST NIGHT, SHE STATED "I WANT IT ANYWAY." I MEDICATED HER W/ZOFRAN PRIOR TO PAIN MEDICATION. I WAS PUSHING PAIN MEDICATION SHE PROCEEDED TO VOMIT PROJECTILE EMSIS GILBERT WITH CHUNKS OF FOOD. PT BEGAN CRYING AND ASKING FOR "MOMMY." WE CLEANED THE ROOM, BEDDING AND PT, PROVIDED PT WITH WET WASHCLOTHS AND BASIN FOR PRECAUTION. SHE IS NOW CALM AND NO LONGER VOMITING, HOUSEKEEPING IS IN THE ROOM.
--- NOTE | 2020-12-29 21:50 | NUR ---
PT APPEARS TO BE RESTING, RESP EVEN AND NON-LABORED. BASIN IN HAND NEXT TO HER.
--- NOTE | 2020-12-29 22:45 | NUR ---
PT CALLED ASKING FOR HER PITCHER OF TEA, WE ADVISED PT NOT TO DRINK TEA AND ADVISED HER THAT WE HOLD ALL PO INTAKE FOR A PERIOD OF TIME TO GIVE HER STOMACH A REST, AGREED.
--- NOTE | 2020-12-29 23:37 | NUR ---
PT WAS HEARD CALLING OUT FOR HELP. UPON ENTERING THE ROOM, SHE WAS VISUALIZED SITTING IN BED VOMITING. BASIN WAS AT SIDE W/IN REACH, PT WAS NOT USING THE BASIN, SHE WAS VOMITING ON HERSELF. WE ASSISTED HER WITH THE BASIN AND BEDDING/GOWN CHANGE, BATHED PT AND PROVIDED NEW BEDDING. EMESIS WAS VISUALIZED TO BE LARGE AMOUNT OF BROWN EMESIS WITH FOOD CHUNKS VISUALIZED ALSO. PT LEFT SITTING UPRIGHT IN THE BED IN HIGH FOWLERS FOR SAFETY PRECAUTIONS OF ASPIRATION, RIGHT ARM ELEVATED ON PILLOW, BASIN ON HER LAP FOR EASE OF USE IF NEEDED. TOWEL AT HER SIDE ALSO. CALL LIGHT W/IN REACH OF HER LEFT USABLE HAND ALSO. SHE APPEARS AT REST AT THIS TIME. V/S OBTAINED ALSO AT THIS TIME.
[2020-12-30] VITALS (7 sets, daily range): BP systolic 133–183; BP diastolic 73–96
--- NOTE | 2020-12-30 00:09 | NUR ---
PT IS AWAKE SITTING UPRIGHT W/BASIN AT SIDE. PT APPEARS CALM AT THIS TIME. NO VOMITING AT THIS TIME.
--- NOTE | 2020-12-30 00:49 | NUR ---
PT UP TO [facility] AND MEDICATED FOR ANXIETY. 350CC OF URINE OUT AT THIS TIME.
--- NOTE | 2020-12-30 02:00 | NUR ---
PT IS IN FOWLERS POSITION IN BED LIGHTS OFF AND TV ON LOW. EYES ARE CLOSED, NO S/O DISTRESS. RESP REGULAR NON-LABORED.
--- NOTE | 2020-12-30 04:19 | NUR ---
PT IS SLEEPING SOUNDLY, RESP/BREATHS REGULAR NON-LABORED AT THIS TIME. NO S/O DISTRESS NOTED.
--- NOTE | 2020-12-30 06:07 | NUR ---
PT PROVIDED SMALL SIPS OF WATER FOR COMFORT, BUT DISCUSSED WITH HER ON TAKING SMALL AMOUNTS AND WAITING TO SEE HOW SHE REACTED DUE TO THE PROJECTILE VOMITING OVERNIGHT.
--- NOTE | 2020-12-30 06:25 | NUR ---
PT CALLED ASKING FOR TEA TO DRINK, I EXPLAINED TO PT THAT WE DO NOT HAVE TEA AVAILABLE AT THIS TIME AND ALSO ATTEMPTED TO EDUCATE HER ON DRINKS GOOD FOR UPSET STOMACH, SHE WAS VOMITING MUCH OF THE NIGHT.
--- NOTE | 2020-12-30 06:32 | NUR ---
PT REFUSED ACCU CHECK AT 0630
--- NOTE | 2020-12-30 07:10 | NUR ---
PATIENT IN BED ALERT AND ORIENTED DENIES ANY NAUSEA AT THIS TIME. FILM PROCESSING SUPERVISOR DONE SEE INTERVENITONS. PATIENT RIGHT WRIST SHUNT IS POSITIVE FOR BRUESE AND NO ISSUES AT THIS TIME. PATIENT DENIES ANY PAIN CURRENTLY. SIDERAILS ARE UP CALL LIGHT IS WITHIN REACH. PATIENT REFUSED TO HAVE ACCU CHECK DONE. WILL CONTINUE TO MONITOR.
--- NOTE | 2020-12-30 11:55 | NUR ---
PATIENT RESTING IN BED EATING LUNCH AT THIS TIME. DENIES ANY PAIN OR NEEDS SIDERAILS ARE UP CALL LIGHT WITHIN REACH. PATIENT NOW ON 1500 FLUID INTAKE RESTRICTION.
--- NOTE | 2020-12-30 17:08 | NUR ---
PATIENT REFUSED TO HAVE ACCU CHECK DONE AT THIS TIME. PATIENT EDUCATED ON THE RISK AND BENEFITS OF CHECKING BLOOD GLUCOSE. PATIENT "YELLED I DON'T CARE IT HURTS AND I AM NOT A DIABETIC". WILL CONTINUE TO MONITOR.
--- NOTE | 2020-12-30 19:00 | NUR ---
PT PROVIDED 2ND MEAL FROM THE KITCHEN. PRIOR TO GIVING IT TO HER I TALKED WITH HER TO MAKE SURE SHE WASN'T SICK. SHE DENIED NAUSEA AND DENIED HAVING ANYMORE ISSUES WITH HER STOMACH DURING THIS DAY REPORTING THAT SHE ATE BREAKFAST LUNCH AND FIRST DINNER TRAY W/OUT STOMACH ISSUES OR N/V. SHE C/O FLUID INTAKE LIMITS. I ADVISED HER THAT SHE HAS 450CC OF FLUID LEFT AVAILABLE THIS EVENING AND AT MIDNIGHT SHE WILL GO NPO FOR SURGERY. SHE JUST KEPT SAYING, I CAN'T GET DRINK, THERE IS 50CC OF TEA AND 50CC OF WATER NEXT TO HER BED W/IN REACH AT THIS TIME OBSERVED. SHE WAS LEFT UPRIGHT IN THE BED EATING HER 2ND EVENING DINNER TRAY.
--- NOTE | 2020-12-30 20:21 | NUR ---
PT MEDICATED FOR ANXIETY AT THIS TIME. SHE IS CRYING.
--- NOTE | 2020-12-30 23:45 | NUR ---
PT CALLED ASKING FOR SOMETHING ELSE TO DRINK, PROVIDED LAST AMOUNT OF AVAILABLE FLUIDS PER FLUID INTAKE LIMITATION PRIOR TO BEING PLACED NPO AT MIDNIGHT FOR MORNING PROCEDURE.
[2020-12-31] VITALS (15 sets, daily range): BP systolic 153–213; BP diastolic 76–108
--- NOTE | 2020-12-31 02:30 | NUR ---
PT IS IN HIGH FOWLERS IN THE BED WITH EYES CLOSED. RESP EVEN NON-LABORED.
--- NOTE | 2020-12-31 03:42 | NUR ---
PT SLEEPING UPRIGHT IN THE BED AND LIGHTS ON. NO S/O DISTRESS NOTED. RESP ARE EVEN AND NON-LABORED.
[2020-12-31 05:31] LABS: HEMATOCRIT 25.8 % (37.0-47.0); HEMOGLOBIN 8.3 g/dl (12.0-16.0); MEAN CELL VOLUME 88.7 fL CALC (80.0-100.0); MEAN CORPUSCULAR HGB 28.5 pG CALC (26.0-32.0); MEAN CORPUSCULAR HGB CONC 32.2 g/dL CAL (32.0-36.0); RED BLOOD COUNT 2.91 mill/uL (4.20-5.60); RED CELL DISTRI WIDTH 12.9 % (11.5-15.5)
[2020-12-31 05:44] LABS: ALBUMIN 2.6 g/dL (3.2-5.0); POTASSIUM 4.8 mmol/l (3.5-5.1)
--- NOTE | 2020-12-31 05:53 | NUR ---
TYPE AND SCREEN ORDERED FOR PT DUE TO HGB 8.3 ON MORNING LABS. ASSISTED CATALYTIC CASE OPERATOR IN WITH PT TO DRAW LABS AT THIS TIME. PT TOLERATED WELL.
[2020-12-31 06:11] LABS: CREATININE 5.4 mg/dL (0.5-1.0); TOTAL PROTEIN 4.9 g/dL (6.3-8.2)
--- NOTE | 2020-12-31 06:33 | NUR ---
PT OFF MED SURG UNIT VIA STRETCHER ACCOMPANIED BY OR NURSES X2. PT IS IN STABLE CONDITION UPON LEAVING MS UNIT.
--- NOTE | 2020-12-31 06:37 | NUR ---
PHYSICIAN NOTIFIED OF CRITICAL LAB BUN 93 UP FROM 80 AND CREATININE 5.4. NO NEW ORDERS
--- NOTE | 2020-12-31 07:00 | NUR ---
REPORT RECEIVED FROM CAROL RUIZ; PT CURRENTLY IN OR AT THIS TIME.
--- NOTE | 2020-12-31 09:27 | NUR ---
O.T. RECEIVED NEW O.T. EVALUATION FOR THIS PATIENT, HOWEVER, O.T. ASSESSED PATIENT 12/28/20. O.T. TO FOLLOW UP WITH TREATMENT TODAY.
--- NOTE | 2020-12-31 10:02 | NUR ---
PT ARRIVED TO MED/SURG ROOM 261 IN STABLE CONDITION VIA STRETCEHER ACCOMPANIED BY OR STAFF;X3 ASSIST TO BEDSIDE;PT A&O X3, DROWSY;VS OBTAINED AND ASSESSMENT COMPLETED;PT CURRENT BP 194/96 HR 81, NOTIFIED AND NEW ORDERS RECEIVED;PT DENIES ANY CURRENT PAIN OR NEEDS,PAIN SCALE AND REPORTING EDUCATED;RESPIRATIONS SHALLOW ON O2 @ 2L VIA NC,DIMINISHED LUNG SOUNDS;ABDOMEN DISTENDED/SOFT ON PALPATION AND ACTIVE IN ALL 4 QUADRANTS;SKIN INTACT;#20G TO LW INFUSING NS PER ORDER,SITE APPEARS HEALTHY;LEFT VASCULAR CATH PORT NOTED WITH DRESSING CDI;CLONDINE 0.2MG PATCH TO RIGHT SHOULDER;ACCUCHECK 103;PT TO REMAIN NPO DUE TO MD ORDERS;PT DENIES ANY ADDITIONAL NEEDS AND IS ENCOURAGED TO CALL FOR ASSISTANCE IF NEEDED;FALL PRECAUTIONS IN PLACE WITH BED IN THE LOWEST POSITION AND CALL LIGHT IN REACH;WILL CONTINUE TO MONITOR
--- NOTE | 2020-12-31 10:45 | NUR ---
PT RESTING IN SEMI FOWLERS POSITION,REMAINS DROWSY;RESPIRATIONS SHALLOW ON O2 @ 2L VIA NC;IV FLUIDS INFUSING TO LW PER ORDER;BP RE-CHECK 174/91 HR 84;PT DENIES ANY ADDITIONAL NEEDS AT THIS TIME;SAFETY PRECAUTIONS REMAIN IN PLACE WITH BED IN THE LOWEST POSITION AND BED ALARM ON FOR SAFETY;CALL LIGHT IN REACH;WILL CONTINUE TO MONITOR
--- NOTE | 2020-12-31 10:50 | NUR ---
PT TO BE MEDICATED WITH PRN APRESOLINE 10MG SLOW IVP BY CAROL ALONSO FOR ELEVATED BP;WILL CONTINUE TO MONITOR FOR EFFECTIVENESS
--- NOTE | 2020-12-31 13:17 | NUR ---
PT BP CONTINUES TO BE INCREASED, SRAVANI ANRP NOTIFIED AND NEW ORDERS RECEIVED.
--- NOTE | 2020-12-31 13:35 | NUR ---
PT TRANSPORTED TO OR IN STABLE VIA HOSPITAL BED ACCOMPANIED BY OR STAFF.
--- NOTE | 2020-12-31 15:33 | NUR ---
Patient is seen for physical therapy treatment including transfer training. She had insertion of her dialysis port and from what I understand will have a smal follow up procedure to ensure placement. Am Pac score for her today remains unchanged at 11 with the patient assisting in transfers but limmited by the above mentioned procedure. She has excellent potential for improving and in fact, is an excellent rehabiitiation candidate given her multiple medical problems. She has the potential for indpenedent community ambulation for short distances but currently is limited by weakness, some right hemiplegia and a right ankle orthopeduc injury requiring a CAM boot. She requires mod assist for transitional movements Our plan is to continue to follow up with physical therapy treatment to improve transfers and decrease her fall risk as well as to maximize her function
--- NOTE | 2020-12-31 16:02 | NUR ---
REPORT RECEIVED FROM CAROL SHARIF
--- NOTE | 2020-12-31 16:05 | NUR ---
PT TRANSPORTED TO MED/SURG ROOM 261 IN STABLE CONDITION VIA HOSPITAL BED ACCOMPANIED BY KOLERN;PT A&O X3 BUT DROWSY;PT DENIES ANY CURRENT PAIN OR DISCOMFORTS;IV SITE TO LW REMAINS PATENT;ACCUCHECK 95;PT CURRENT BP 199/106 HR 83, ALL MORNING MEDICATION PROVIDED AT THIS TIME PER SRAVANI IRAHETA;VASCULAR CATH PORT TO LEFT CHEST PATENT WITH DRESSING CDI;RESPIRATIONS SHALLOW ON O2 @ 3L VIA NC;PT DENIES ANY ADDITIONAL NEEDS AND IS ENCOURAGED TO CALL FOR ASSISTANCE IF NEEDED;CALL LIGHT IN REACH;WILL CONTINUE TO MONITOR
--- NOTE | 2020-12-31 17:20 | NUR ---
PT CURRENT BP 212/100 HR 83, PT TO BE MEDICATED WITH PRN APRESOLINE 10MG SLOW IVP BY CAROL ALONSO;WILL CONTINUE TO MONITOR FOR EFFECTIVENESS
--- NOTE | 2020-12-31 18:05 | NUR ---
BP RE-CHECK 188/97
--- NOTE | 2020-12-31 18:34 | NUR ---
PT MEDICATED WITH 0.5MG OF IV DILAUDID FOR BACK PAIN RATING 9/10 ON THE PAINN SCALE AND XANAX 0.25MG PO FOR ANXIETY;WILL CONTINUE TO MONITOR FOR EFFECTIVENESS
--- NOTE | 2020-12-31 22:00 | NUR ---
PHYSICAL ASSESMENT COMPLETE. PT C/O OF PAIN AND DISCOMFORT. WARM BLANKET PROVIDED. SCHEDULED MEDICATIONS AND PRN MEDICATION ADMINISTERED, SEE E-MAR. PT DENIES ANY NEEDS AT THIS TIME. PLAN OF CARE REVIEWED, PT DENIES QUESTIONS, VERBALIZES UNDERSTANDING. ITEMS WITHIN REACH, BED LOCKED IN LOW POSITION W/ BEDRAILS UP X2. CALL SHANKAR WITHIN REACH, AGREES TO CALL PRN.
[2021-01-01] VITALS: BP 139/72
[2021-01-01 04:00] VITALS: BP 118/60
--- NOTE | 2021-01-01 04:29 | NUR ---
PT RESTING IN BED, NO SIGNS OF DISTRESS NOTED, RESP EVEN AND UNLABORED. PT VOICES NO NEEDS OR COMPLAINTS AT THIS TIME. CALL LIGHT IN REACH, CONTINUE TO MONITOR.
[2021-01-01 06:36] LABS: HEMATOCRIT 25.5 % (37.0-47.0); HEMOGLOBIN 8.2 g/dl (12.0-16.0); MEAN CELL VOLUME 88.2 fL CALC (80.0-100.0); MEAN CORPUSCULAR HGB 28.4 pG CALC (26.0-32.0); MEAN CORPUSCULAR HGB CONC 32.2 g/dL CAL (32.0-36.0); RED BLOOD COUNT 2.89 mill/uL (4.20-5.60)
--- NOTE | 2021-01-01 07:00 | NUR ---
REPORT RECEIVED FROM CAROL BARBOUR
[2021-01-01 07:06] LABS: MAGNESIUM 1.6 mg/dL (1.6-2.3); POTASSIUM 4.6 mmol/l (3.5-5.1)
[2021-01-01 07:27] LABS: CREATININE 5.4 mg/dL (0.5-1.0)
--- NOTE | 2021-01-01 07:27 | NUR ---
CALL RECEIEVED FROM LAB. CRITICAL CREATININE 5.4 AND BUN 82/ NOTIFIED.NO NEW ORDERS AT THIS TIME.
--- NOTE | 2021-01-01 08:11 | NUR ---
SPEECH THERAPY AT BEDSIDE
[2021-01-01 08:25] VITALS: BP 141/73
--- NOTE | 2021-01-01 08:25 | NUR ---
PT RESTING IN SEMI FOWLERS POSITION,A&O X3;VS OBTAINED AND ASSESSMENT COMPLETED;PT REPORTS GENERALIZED PAIN AND REQUESTS PAIN MEDICATION, PT EDUCATED ON PAIN MEDICATION SCHEDULE AND WRITTER OFFERED PRN TYLENOL BUT PT REFUSES;PRN XANAX 0.25MG PO PROVIDED;RESPIRATIONS EVEN AND UNLABORED ON RA,DIMINISHED LUNG SOUNDS;NON-PRODUCTIVE COUGH;LEFT VASCULAR CHEST CATH DL PORT PATENT WITH DRESSING CDI;ABDOMEN SOFT ON PALPATION AND ACTIVE IN ALL 4 QUADRANTS;WEAK PEDAL PULSES;SKIN INTACT;RIGHT SIDED WEAKNESS NOTED FROM HX STROKE;#20G TO LW PATENT AND SITE APPEARS HEALTHY;ACUCCHECK 88,NO COVERAGE NEEDED;PT DENIES ANY ADDITIONAL NEEDS AND IS ENCOURAGED TO CALL FOR ASSISTANCE IF NEEDED;FALL PRECAUTIONS IN PLACE WITH BED IN THE LOWEST POSITION AND CALL LIGHT IN REACH;WILL CONTINUE TO MONITOR
--- NOTE | 2021-01-01 08:50 | NUR ---
AT BEDSIDE DISCUSSING POC.
--- NOTE | 2021-01-01 11:30 | NUR ---
PT RESTING IN SEMI FOWLERS POSITION;RESPIRATIONS EVEN AND UNLABORED ON RA;PT REPORTS PAIN RATING 10/10 ON THE PAIN SCALE AND REQUESTS PAIN MEDICATION, PT MEDICATED WITH LORTAB 5/325MG PO AT THIS TIME;IV SITE REMAINS INTACT;ACCUCHECK 112, NO COVERAGE NEEDED;PT DENIES ANY ADDITIONAL NEEDS AT THIS TIME;ENCOURAGED TO CALL FOR ASSISTANCE IF NEEDED;CALL LIGHT IN REACH;WILL CONTINUE TO MONITOR
--- NOTE | 2021-01-01 13:02 | NUR ---
Pt received upright in bed with breakfast tray at bedside. Pt is on 4L via nasal cannula. She is alert and oriented to self and year only. Pt reported she was at [facility]. Pt continues to be dysarthric and demonstrates anomic aphasia during conversation with clinician. Pt given therapeutic PO trials of thin liquids, mechanical soft, and regular solids. She presented with an increased mastication time with regular solids and multiple swallows per bolus presentation. Patient tolerated all consistencies without overt s/s of penetration/aspiration. Recommend continue regular solids and thin liquids. Aspiration precautions to include: HOB upright at 90 degrees for PO intake, small bites/sips, slow rate, alternate liquids and solids, and remain upright for >30 minutes after PO intake.
[2021-01-01 14:43] VITALS: BP 156/80
--- NOTE | 2021-01-01 15:20 | NUR ---
PT RESTING IN SEMI FOWLERS POSITION;RESPIRATIONS EVEN AND UNLABORED ON RA;PT DENIES ANY CURRENT PAIN OR NEEDS;IV SITE PATENT TO LW;PT ENCOURAGED TO CALL FOR ASSISTANCE IF NEEDED;FALL PRECAUTIONS IN PLACE WITH BED IN THE LOWEST POSITION AND CALL LIGHT IN REACH;WILL CONTINUE TO MONITOR
--- NOTE | 2021-01-01 15:50 | NUR ---
PT note: Patient remains a but lethargic today. Her Am Pac is unchanged. She worked on bed mobility including supine to sit and assisting with rolling ot the left. She also perfromed repeated sit to stand. She was able to tell me more about her foot which is in a CAM boot. She has a Charcot deformity and intability. Her RUE hemiplegia is continuing to effect her abiility to ambualte and to transfer properly and safely. She also lacks a proper righting reflex with any LOB to the right and is a high fall risk. Her Am Pac score is unchanged from yesterday and she is still a good candidate for rehabilitation to work on safety, transfers and bed mobility as well as ambulation with a veronica walker or cane as a FWW is innapropriate for her
--- NOTE | 2021-01-01 18:12 | NUR ---
PT REPORTS GENERALIZED PAIN AND ANXIETY, PT MEDICATED WITH PRN LORTAB 5/325MG PO AND XANAX 0.25MG PO AT THIS TIME;WILL CONTINUE TO MONITOR FOR EFFECTIVENESS
[2021-01-01 19:00] VITALS: BP 160/80
[2021-01-02 04:00] VITALS: BP 137/68
[2021-01-02 05:49] LABS: HEMATOCRIT 26.2 % (37.0-47.0); HEMOGLOBIN 8.4 g/dl (12.0-16.0); MEAN CORPUSCULAR HGB 27.9 pG CALC (26.0-32.0); MEAN CORPUSCULAR HGB CONC 32.1 g/dL CAL (32.0-36.0); RED BLOOD COUNT 3.01 mill/uL (4.20-5.60); RED CELL DISTRI WIDTH 12.7 % (11.5-15.5)
[2021-01-02 05:55] LABS: MAGNESIUM 1.6 mg/dL (1.6-2.3); POTASSIUM 4.6 mmol/l (3.5-5.1)
[2021-01-02 06:22] LABS: CREATININE 5.5 mg/dL (0.5-1.0)
--- NOTE | 2021-01-02 07:45 | NUR ---
CASEYT RESTING IN BED AT THIS TIME. FRONT OFFICE CLERK DONE SEE INTERVENITONS. LEFT CHEST WALL TESSO CATH IN PLACE AT THIS TIME AND RIGHT WRIST SHUNT IN PLACE WITH BRUSES PRESENT. PATINET DENIES ANY PAIN. PATIENT PRESENTS WITH GENERALIZED EDEMA AND RIGHT SIDED DEFICTS AT THIS TIME DUE TO HISTORY OF STROKE. SIDERAILS ARE UP X 2 CALL LIGHT IS WITHIN REACH.
[2021-01-02 07:50] VITALS: BP 136/70
--- NOTE | 2021-01-02 12:00 | NUR ---
PATIENT LAYING IN BED AT THIS TIME. PATIENT DENIES ANY NEEDS AND DENIES PAIN. PATIENT CRYING OUT "MOMMY" BECAUSE SHE WANTED HER TV TURNED OFF. PATIENT GIVEN REMOTE AND SHOWN HOW TO USE. SIDERAILS ARE UP CALL LIGHT NEAR.
[2021-01-02 14:00] VITALS: BP 161/86
[2021-01-02 14:06] VITALS: BP 152/72
--- NOTE | 2021-01-02 15:40 | NUR ---
Attempted PT regimen The patient is complaining of pain at her left neck. She is crying and emotionally labile. We will attempt therapy a little later this afternoon
--- NOTE | 2021-01-02 16:13 | NUR ---
PATIENT LAYING IN BED AT THIS TIME. SIDERAILS ARE UP CALL LIGHT WITHIN REACH. TESSO CATH REMAINS IN PATENT AND IN PLACE AND R WIRST SHUNT REMAINS PATENT. WILL CONTINUE TO MONITOR
--- NOTE | 2021-01-02 16:38 | NUR ---
PATIENT COMPLAINING OF LEFT SHOULDER PAIN 1 5/325MG NORCO GIVEN AT THIS TIME. WILL CONTINUE TO MONITOR PATIENT STATED PAIN IS A 5
[2021-01-02 19:00] VITALS: BP 163/75
--- NOTE | 2021-01-02 19:00 | NUR ---
REPORT FROM JEB MEDINA. ASSUMED PT CARE.
--- NOTE | 2021-01-02 19:41 | NUR ---
PT note Patient is seen in late PM for gait training. She was so emotioinal labile earlier she had a hard time describing her pain. When I returned, she was on th ephone speaking with her and told me her back was what was huring. This was relieved with position change. She worked on supine to sit to stand transfers- specifically supine to sit as this gives her the most difficulty at home. She was able to amb with a SBQC and her CAM boot on the right. Her RUE is flaccid. Her biggest limitation is hemiplegia and poor motor plan. Her Am Pac is unchanged from previous day and she is a good candidate for inpatient rehab facility.
--- NOTE | 2021-01-02 23:59 | NUR ---
assisted pt off bsc. large brown loose bm noted. repositioned back into bed. call light within reach. will continue to monitor.
[2021-01-03 04:28] VITALS: BP 135/74
--- NOTE | 2021-01-03 05:04 | NUR ---
PT REFUSED MORNING LABS AFTER SEVERAL ATTEMPTS.
--- NOTE | 2021-01-03 07:00 | NUR ---
PT REPORT RECEIVED FROM CAROL RUSS
[2021-01-03 07:42] VITALS: BP 132/71
[2021-01-03] MEDS ORDERED: APRESOLINE25 MG/TAB PO (07:51)
--- NOTE | 2021-01-03 08:00 | NUR ---
PT WAS FOUND RESTING IN BED;PT IS A&OX3;PT IS REPORTING NO PAIN AT THIS TIME;VS AND ASSESSMENT WERE COMPLETED;HEART SOUNDS ARE REGULAR IN RATE AND RHYTHM;LUNG SOUNDS ARE CLEAR AND DIMINISHED;PT IS REPORTING A NON-PRODUCTIVE COUGH;PT HAS GENERALIZED 3+ EDEMA PRESENT WITH THE RT UPPER AND LOWER EXT SLIGHTLY WORSE;PT HAS A FISTULA IN HER RT WRIST WITH APPROPRIATE BRUIT AND THRILL ASSESSMENT;RT ARM IS ELEVATED ON A PILLOW AT THIS TIME;PT HAS A NEWLY PLACED VASCULAR TESIO PORT WITH DRESSING CDI;#20G IV IN LW IS SL, PATENT AND APPEARS FREE OF COMPLICATIONS AT THIS TIME;SAFETY PRECAUTIONS IN PLACE;CALL LIGHT WITHIN REACH;BED IN LOWEST POSITION;PT ENCOURAGED TO CALL WITH ANY NEEDS OR CONCERNS;WILL CONTINUE TO MONITOR.
[2021-01-03 08:16] VITALS: BP 143/76
[2021-01-03 08:45] VITALS: BP 143/76
--- NOTE | 2021-01-03 12:00 | NUR ---
PT WAS FOUND RESTING IN BED EATING LUNCH;PT IS AWAITING DC AND TRANSPORT TO REHAB FACILITY;SAFETY PRECAUTIONS IN PLACE;CALL LIGHT WITHIN REACH;BED IN LOWEST POSITION;WILL CONTINUE TO MONITOR.
--- NOTE | 2021-01-03 13:09 | NUR ---
Discharge instructions given. Patient verbalizes understanding of same. Discharged in stable condition via Wheelchair to *Other with staff. All belongings sent with pt. PT WAS PRESENTED WITH DISCHARGE INSTRUCTIONS;MEDICATIONS AND DC INSTRUCTIONS WERE EXPLAINED TO PT;PT HAD NO FURTHER QUESTIONS AND SIGNATURE WAS OBTAINED;PT WILL BE TRANSPORTED TO [facility] USING THEIR TRANSPORT TEAM;IV WAS REMOVED WITHOUT COMPLICATIONS AND CATHETER INTACT; PT WAS TRANSPORTED IN STABLE CONDITION VIA STRETCHER TO [facility] VIA THEIR TRANSPORT FACILITY SERVICE;ALL PT BELONGINGS WERE SENT WITH PT;PAPERWORK WAS SENT WITH PT WELL; PT WAS TRANSPORTED TO [facility] ACCOMPANIED BY STAFF;
--- NOTE | 2021-01-03 13:40 | NUR ---
PT REPORT CALLED TO [facility];SPOKE WITH NURSE PAIGE;PT INFO WAS GIVEN;SHE HAD NO FURTHER QUESTIONS FOR ME;
== END 2021-01-03 13:09 | DRG 641 ==
LOC: ED 18:00 → ED-I 20:43 → ED 21:04 → MS2 21:05
PROVIDERS: Family Medicine; Internal Medicine Nephrology; Nurse Practitioner; Nurse Practitioner Family; ADMIT Internal Medicine; ATTEND Internal Medicine
PROC: 0JH63XZ Insertion of Tunneled Vascular Access Device into Chest Subcutaneous Tissue and Fascia, Percutaneous Approach (ICD-10-PCS; principal; 2020-12-31)
PROC: 02HV33Z Insertion of Infusion Device into Superior Vena Cava, Percutaneous Approach (ICD-10-PCS; 2020-12-31)
PROC: B518ZZA Fluoroscopy of Superior Vena Cava, Guidance (ICD-10-PCS; 2020-12-31)
PROC: 0JPT3XZ Removal of Tunneled Vascular Access Device from Trunk Subcutaneous Tissue and Fascia, Percutaneous Approach (ICD-10-PCS; 2020-12-31)
PROC: 0JH63XZ Insertion of Tunneled Vascular Access Device into Chest Subcutaneous Tissue and Fascia, Percutaneous Approach (ICD-10-PCS; 2020-12-31)
PROC: 02PY33Z Removal of Infusion Device from Great Vessel, Percutaneous Approach (ICD-10-PCS; 2020-12-31)
PROC: 02HV33Z Insertion of Infusion Device into Superior Vena Cava, Percutaneous Approach (ICD-10-PCS; 2020-12-31)
PROC: B518ZZA Fluoroscopy of Superior Vena Cava, Guidance (ICD-10-PCS; 2020-12-31)
DX: E87.70 Fluid overload, unspecified (principal); I12.0 Hypertensive chronic kidney disease with stage 5 chronic kidney disease or end stage renal disease; N17.9 Acute kidney failure, unspecified; N18.5 Chronic kidney disease, stage 5; I69.351 Hemiplegia and hemiparesis following cerebral infarction affecting right dominant side; T82.524A Displacement of infusion catheter, initial encounter; E87.2 Acidosis; E87.1 Hypo-osmolality and hyponatremia; I16.0 Hypertensive urgency; E87.5 Hyperkalemia; E11.22 Type 2 diabetes mellitus with diabetic chronic kidney disease; D63.1 Anemia in chronic kidney disease; I69.328 Other speech and language deficits following cerebral infarction; F31.9 Bipolar disorder, unspecified; F41.0 Panic disorder [episodic paroxysmal anxiety]; G47.30 Sleep apnea, unspecified; G89.29 Other chronic pain; M54.9 Dorsalgia, unspecified; F17.200 Nicotine dependence, unspecified, uncomplicated; I25.2 Old myocardial infarction; Y83.8 Other surgical procedures as the cause of abnormal reaction of the patient, or of later complication, without mention of misadventure at the time of the procedure; Z87.01 Personal history of pneumonia (recurrent); Z20.822 Contact with and (suspected) exposure to COVID-19
CPT/HCPCS: G0378; J0131; J1756

== ENCOUNTER 2021-01-17 14:48 | Emergency (ER) | payer MEDICARE, MEDICAID ==
[~2021-01-17] VITALS: Ht 177.8 cm; Wt 100.0 kg
[~2021-01-17 14:48] MED LIST changes: +APRESOLINE25 MG/TAB PO; +TERAZOSIN5 MG PO
[2021-01-17 15:41] LABS: HEMATOCRIT 26.8 % (37.0-47.0); HEMOGLOBIN 8.4 g/dl (12.0-16.0); IMMATURE GRANULOCYTES 0.1 % (0.0-5.0); MEAN CELL VOLUME 89.9 fL CALC (80.0-100.0); MEAN CORPUSCULAR HGB 28.2 pG CALC (26.0-32.0); MEAN CORPUSCULAR HGB CONC 31.3 g/dL CAL (32.0-36.0); NEUT# 6.48 thou/uL (2.00-7.15); RED BLOOD COUNT 2.98 mill/uL (4.20-5.60); RED CELL DISTRI WIDTH 13.1 % (11.5-15.5)
[2021-01-17 15:52] LABS: ALKALINE PHOSPHATASE 77 u/l (38-126); BUN 70 mg/dL (7-17); CARBON DIOXIDE 22 mmol/l (22-30); CHLORIDE 101 mmol/l (95-108); ETHYL ALCOHOL 0 mg/dl (0-30); LIPASE 59 u/l (23-300); SODIUM 135 mmol/l (137-146)
[2021-01-17 16:05] LABS: ACT PARTIAL THROMBO TIME 26.5 SECONDS (20.0-32.5); INTERNATIONAL NORMALIZED RATIO 1.1 RATIO (0.7-1.3); PROTHROMBIN TIME 11.1 SECONDS (9.0-12.5)
[2021-01-17 16:06] LABS: ALBUMIN 3.7 g/dL (3.2-5.0); ANION GAP 18 (6-22 (CALC)); BILIRUBIN, TOTAL 0.2 mg/dL (0.0-1.4); BUN/CREATININE RATIO 13 (12-20 (CALC)); CREATININE 5.4 mg/dL (0.5-1.0); GFR 9 ML/MIN (>=60 (CALC)); GFR FOR AFR.AMER. 11 ML/MIN (>=60 (CALC)); SGOT/AST 23 u/l (14-36); TOTAL PROTEIN 6.4 g/dL (6.3-8.2)
[2021-01-17 16:07] LABS: POTASSIUM 6.4 mmol/l (3.5-5.1)
[2021-01-17 18:34] VITALS: BP 178/81
--- NOTE | 2021-01-20 14:52 | NUR ---
FINAL BLOOD CULTURE RESULTS FAXED TO [facility]
== END 2021-01-17 19:19 | disposition short-term general hospital (02) ==
LOC: ED 14:48
DX: R56.9 Unspecified convulsions (principal); N17.9 Acute kidney failure, unspecified; J18.9 Pneumonia, unspecified organism; E87.5 Hyperkalemia; E11.22 Type 2 diabetes mellitus with diabetic chronic kidney disease; I12.0 Hypertensive chronic kidney disease with stage 5 chronic kidney disease or end stage renal disease; N18.6 End stage renal disease; F31.9 Bipolar disorder, unspecified; I25.2 Old myocardial infarction; Z99.2 Dependence on renal dialysis; Z86.73 Personal history of transient ischemic attack (TIA), and cerebral infarction without residual deficits
CPT/HCPCS: J0131; J1956

== ENCOUNTER 2021-10-02 06:06 | Observation (INO) | payer MEDICARE, MEDICAID ==
[2021-10-02] VITALS (39 sets, daily range): BP systolic 78–107; BP diastolic 46–70
[~2021-10-02] VITALS: Ht 180.3 cm; Wt 90.0 kg
[~2021-10-02 06:06] MED LIST changes: +ALPRAZOLAM0.25 M1 PO; +DIVALPROEX SOD500 MG PO; +HYDROCO/APAP1 T10 PO; +REMERON SOLTAB15 MG PO; +SPIRONOLACTONE50 MG PO
[2021-10-02] MEDS ORDERED: CATAPRES-T0.2 MG/21 TD (07:34)
[2021-10-02] MEDS ORDERED: OMEPRAZOLE DR40 MG PO (07:35)
[2021-10-02] MEDS ORDERED: TERAZOSIN5 MG PO (07:35)
[2021-10-02] MEDS ORDERED: CLOPIDOGREL75 MG PO (07:36)
[2021-10-02 08:39] LABS: HEMATOCRIT 31.5 % (37.0-47.0); HEMOGLOBIN 9.8 g/dl (12.0-16.0); IMMATURE GRANULOCYTES 0.7 % (0.0-5.0); MEAN CORPUSCULAR HGB 33.1 pG CALC (26.0-32.0); MEAN CORPUSCULAR HGB CONC 31.1 g/dL CAL (32.0-36.0); NEUT# 14.28 thou/uL (2.00-7.15); RED BLOOD COUNT 2.96 mill/uL (4.20-5.60); RED CELL DISTRI WIDTH 14.8 % (11.5-15.5)
[2021-10-02 08:43] LABS: MEAN CELL VOLUME 106.4 fL CALC (80.0-100.0)
[2021-10-02 09:00] LABS: ALBUMIN 3.8 g/dL (3.2-5.0); BILIRUBIN, TOTAL 0.5 mg/dL (0.0-1.4); POTASSIUM 4.4 mmol/l (3.5-5.1); TOTAL PROTEIN 6.5 g/dL (6.3-8.2)
[2021-10-02 09:05] LABS: CREATININE 5.1 mg/dL (0.5-1.0)
[2021-10-02 10:29] LABS: URINE COLOR YELLOW; URINE GLUCOSE - DIPSTICK NEGATIVE (NEGATIVE); URINE KETONE TRACE mg/dL (NEGATIVE); URINE LEUK ESTERASE NEGATIVE (NEGATIVE); URINE PROTEIN - DIPSTICK 100 mg/dL (NEG-TRACE); URINE SPECIFIC GRAVITY >=1.030; URINE UROBILINOGEN - DIPSTICK 0.2 E.U./dL (0.2)
[2021-10-02 10:32] LABS: URINE BILIRUBIN - DIPSTICK NEGATIVE (NEGATIVE); URINE BLOOD DIPSTICK NEGATIVE (NEGATIVE); URINE NITRITE - DIPSTICK NEGATIVE (Negative)
[2021-10-02 10:39] LABS: URINE BACTERIA FEW hpf; URINE EPITHELIAL CELLS RARE EPI/hpf (0-FEW); URINE WBC 0-2 WBC/hpf (0-5)
[2021-10-02] MEDS ORDERED: TRULICITY1.5 MG/0.5 SC (13:27)
[2021-10-03 03:05] VITALS: BP 98/54
[2021-10-03 09:14] LABS: ALBUMIN 3.2 g/dL (3.2-5.0); BILIRUBIN, TOTAL 0.5 mg/dL (0.0-1.4); POTASSIUM 4.7 mmol/l (3.5-5.1); TOTAL PROTEIN 5.7 g/dL (6.3-8.2)
[2021-10-03 09:33] LABS: HEMATOCRIT 25.8 % (37.0-47.0); IMMATURE GRANULOCYTES 0.7 % (0.0-5.0); MEAN CELL VOLUME 109.8 fL CALC (80.0-100.0); MEAN CORPUSCULAR HGB 33.2 pG CALC (26.0-32.0); MEAN CORPUSCULAR HGB CONC 30.2 g/dL CAL (32.0-36.0); NEUT# 12.32 thou/uL (2.00-7.15); RED BLOOD COUNT 2.35 mill/uL (4.20-5.60); RED CELL DISTRI WIDTH 14.7 % (11.5-15.5)
[2021-10-03 09:34] LABS: HEMOGLOBIN 7.8 g/dl (12.0-16.0)
[2021-10-03 15:44] VITALS: BP 110/74
[2021-10-03 16:29] VITALS: BP 112/79
[2021-10-03 18:11] VITALS: BP 96/44
[2021-10-03 22:33] LABS: HEMOGLOBIN 10.3 g/dl (12.0-16.0)
[2021-10-04] VITALS: BP 116/79
[2021-10-04 03:18] VITALS: BP 98/65
[2021-10-04 05:09] LABS: HEMATOCRIT 31.3 % (37.0-47.0); HEMOGLOBIN 9.5 g/dl (12.0-16.0); MEAN CELL VOLUME 105.7 fL CALC (80.0-100.0); MEAN CORPUSCULAR HGB 32.1 pG CALC (26.0-32.0); MEAN CORPUSCULAR HGB CONC 30.4 g/dL CAL (32.0-36.0); RED BLOOD COUNT 2.96 mill/uL (4.20-5.60); RED CELL DISTRI WIDTH 16.9 % (11.5-15.5)
[2021-10-04 05:27] LABS: ALBUMIN 3.5 g/dL (3.2-5.0); MAGNESIUM 1.7 mg/dL (1.6-2.3)
[2021-10-04 05:50] LABS: CREATININE 4.9 mg/dL (0.5-1.0)
[2021-10-04 05:51] LABS: POTASSIUM 4.4 mmol/l (3.5-5.1)
[2021-10-04 08:48] VITALS: BP 99/71
[2021-10-04 10:50] VITALS: BP 137/87
[2021-10-04 21:01] VITALS: BP 124/80
[2021-10-04 22:55] VITALS: BP 145/87
[2021-10-05 02:43] VITALS: BP 135/82
[2021-10-05 05:34] LABS: MEAN CELL VOLUME 104.7 fL CALC (80.0-100.0); MEAN CORPUSCULAR HGB 32.5 pG CALC (26.0-32.0); RED BLOOD COUNT 2.77 mill/uL (4.20-5.60); RED CELL DISTRI WIDTH 16.9 % (11.5-15.5)
[2021-10-05 05:52] LABS: ALBUMIN 3.4 g/dL (3.2-5.0); CREATININE 4.4 mg/dL (0.5-1.0); MAGNESIUM 1.7 mg/dL (1.6-2.3); POTASSIUM 3.8 mmol/l (3.5-5.1)
[2021-10-05 06:29] VITALS: BP 140/87
[2021-10-05 11:25] VITALS: BP 132/80
[2021-10-05 14:22] VITALS: BP 145/83
[2021-10-05 17:50] VITALS: BP 158/77
[2021-10-05 21:48] VITALS: BP 158/77
== END 2021-10-05 22:56 | disposition short-term general hospital (02) ==
LOC: ED 06:06 → ED-I 12:56 → ED 13:32 → MS2 13:33
PROVIDERS: Family Medicine; ADMIT Internal Medicine; ATTEND Internal Medicine
PROC: 06HY33Z Insertion of Infusion Device into Lower Vein, Percutaneous Approach (ICD-10-PCS; principal; 2021-10-02)
PROC: 30243N1 Transfusion of Nonautologous Red Blood Cells into Central Vein, Percutaneous Approach (ICD-10-PCS; 2021-10-03)
PROC: 5A1D70Z Performance of Urinary Filtration, Intermittent, Less than 6 Hours Per Day (ICD-10-PCS; 2021-10-03)
PROC: 5A1D70Z Performance of Urinary Filtration, Intermittent, Less than 6 Hours Per Day (ICD-10-PCS; 2021-10-04)
DX: A41.9 Sepsis, unspecified organism (principal); I95.9 Hypotension, unspecified; I31.3 Pericardial effusion (noninflammatory); I12.0 Hypertensive chronic kidney disease with stage 5 chronic kidney disease or end stage renal disease; E11.22 Type 2 diabetes mellitus with diabetic chronic kidney disease; N18.6 End stage renal disease; D63.1 Anemia in chronic kidney disease; N25.81 Secondary hyperparathyroidism of renal origin; E87.1 Hypo-osmolality and hyponatremia; E11.610 Type 2 diabetes mellitus with diabetic neuropathic arthropathy; R09.02 Hypoxemia; I69.351 Hemiplegia and hemiparesis following cerebral infarction affecting right dominant side; F41.9 Anxiety disorder, unspecified; F31.9 Bipolar disorder, unspecified; B35.1 Tinea unguium; I25.2 Old myocardial infarction; F17.200 Nicotine dependence, unspecified, uncomplicated; Z99.2 Dependence on renal dialysis; Z79.02 Long term (current) use of antithrombotics/antiplatelets; Z20.822 Contact with and (suspected) exposure to COVID-19
CPT/HCPCS: J0692; P9016; Q3014

== ENCOUNTER 2022-03-15 11:16 | Observation (INO) | payer MEDICARE, MEDICAID ==
[~2022-03-15] VITALS: Ht 177.8 cm; Wt 100.0 kg
[~2022-03-15 11:16] MED LIST changes: +CATAPRES-T0.2 MG/21 TD; +CLOPIDOGREL75 MG PO; +OMEPRAZOLE DR40 MG PO; +TRULICITY1.5 MG/0.5 SC
[2022-03-15 12:25] LABS: HEMOGLOBIN 10.9 g/dl (12.0-16.0); IMMATURE GRANULOCYTES 0.1 % (0.0-5.0); MEAN CORPUSCULAR HGB 30.4 pG CALC (26.0-32.0); MEAN CORPUSCULAR HGB CONC 30.9 g/dL CAL (32.0-36.0); NEUT# 7.58 thou/uL (2.00-7.15); RED BLOOD COUNT 3.59 mill/uL (4.20-5.60); RED CELL DISTRI WIDTH 15.7 % (11.5-15.5)
[2022-03-15 12:30] LABS: HEMATOCRIT 35.3 % (37.0-47.0); MEAN CELL VOLUME 98.3 fL CALC (80.0-100.0)
[2022-03-15 12:37] LABS: BILIRUBIN, TOTAL 0.5 mg/dL (0.0-1.4)
[2022-03-15 12:45] LABS: ALBUMIN 4.4 g/dL (3.2-5.0); TOTAL PROTEIN 7.6 g/dL (6.3-8.2)
[2022-03-15] MEDS ORDERED: VALACYCLOVIR HCL1 GM PO (14:37)
[2022-03-15 15:40] VITALS: BP 169/88
== END 2022-03-15 19:05 | disposition home or self-care (01) ==
LOC: ED 11:16 → ED-I 13:11 → ED 14:41 → MS2 14:42
PROVIDERS: Family Medicine; ADMIT Internal Medicine; ATTEND Internal Medicine
PROC: 5A1D70Z Performance of Urinary Filtration, Intermittent, Less than 6 Hours Per Day (ICD-10-PCS; principal; 2022-03-15)
DX: B02.9 Zoster without complications (principal); I12.0 Hypertensive chronic kidney disease with stage 5 chronic kidney disease or end stage renal disease; E11.22 Type 2 diabetes mellitus with diabetic chronic kidney disease; N18.6 End stage renal disease; D63.1 Anemia in chronic kidney disease; N25.81 Secondary hyperparathyroidism of renal origin; F31.9 Bipolar disorder, unspecified; F41.0 Panic disorder [episodic paroxysmal anxiety]; G47.30 Sleep apnea, unspecified; I25.2 Old myocardial infarction; F17.200 Nicotine dependence, unspecified, uncomplicated; Z99.2 Dependence on renal dialysis; Z79.4 Long term (current) use of insulin; Z79.899 Other long term (current) drug therapy; Z86.73 Personal history of transient ischemic attack (TIA), and cerebral infarction without residual deficits; Z20.822 Contact with and (suspected) exposure to COVID-19
CPT/HCPCS: J1644

== ENCOUNTER → 2022-10-15 | Day surgery (SDC) | payer MEDICARE, MEDICAID ==
[~2022-10-15] MED LIST changes: +VALACYCLOVIR HCL1 GM PO
[2022-10-15 08:00] VITALS: BP 222/111
== END ==
LOC: ORM 07:40
PROVIDERS: ATTEND Physical Medicine & Rehabilitation Pain Medicine
DX: G89.4 Chronic pain syndrome (principal); Z53.09 Procedure and treatment not carried out because of other contraindication; Z11.59 Encounter for screening for other viral diseases

== ENCOUNTER 2023-02-02 16:17 | Inpatient (IN) | payer MEDICARE, MEDICAID ==
[~2023-02-02] VITALS: Ht 177.8 cm; Wt 95.5 kg
[2023-02-02] VITALS (24 sets, daily range): BP systolic 102–137; BP diastolic 53–76
[~2023-02-02 16:17] MED LIST changes: +CLINDAMYCIN HY150 MG PO
[2023-02-02 18:05] LABS: BASO% 0.3 % (0-3); HEMATOCRIT 38.7 % (37.0-47.0); HEMOGLOBIN 12.1 g/dl (12.0-16.0); IMMATURE GRANULOCYTES 0.2 % (0.0-5.0); MEAN CELL VOLUME 106.3 fL CALC (80.0-100.0); MEAN CORPUSCULAR HGB 33.2 pG CALC (26.0-32.0); MEAN CORPUSCULAR HGB CONC 31.3 g/dL CAL (32.0-36.0); MONO% 5.9 % (2-13); NEUT# 11.38 thou/uL (2.00-7.15); NEUT% 75.6 % (42-76); RED BLOOD COUNT 3.64 mill/uL (4.20-5.60); RED CELL DISTRI WIDTH 13.8 % (11.5-15.5)
[2023-02-02 18:16] LABS: BILIRUBIN, TOTAL 0.5 mg/dL (0.02-1.3); CREATININE 7.5 mg/dL (0.5-1.0); POTASSIUM 5.1 mmol/l (3.5-5.1)
[2023-02-03] VITALS (10 sets, daily range): BP systolic 92–119; BP diastolic 50–70
[2023-02-04] VITALS (12 sets, daily range): BP systolic 105–142; BP diastolic 45–88
[2023-02-04 05:58] LABS: MEAN CELL VOLUME 108.5 fL CALC (80.0-100.0); MEAN CORPUSCULAR HGB 34.4 pG CALC (26.0-32.0); MEAN CORPUSCULAR HGB CONC 31.7 g/dL CAL (32.0-36.0); RED BLOOD COUNT 2.7 mill/uL (4.20-5.60)
[2023-02-04 06:04] LABS: HEMATOCRIT 29.3 % (37.0-47.0); HEMOGLOBIN 9.3 g/dl (12.0-16.0)
[2023-02-04 06:19] LABS: ALBUMIN 3.9 g/dL (3.2-5.0); BILIRUBIN, TOTAL 0.6 mg/dL (0.02-1.3); MAGNESIUM 1.8 mg/dL (1.6-2.3); TOTAL PROTEIN 7.2 g/dL (6.3-8.2)
[2023-02-04 06:36] LABS: CREATININE 5.2 mg/dL (0.5-1.0); POTASSIUM 5.3 mmol/l (3.5-5.1)
[2023-02-05] VITALS (53 sets, daily range): BP systolic 67–186; BP diastolic 38–89
[2023-02-05 09:05] LABS: HEMATOCRIT 26.4 % (37.0-47.0); HEMOGLOBIN 8.4 g/dl (12.0-16.0); MEAN CORPUSCULAR HGB 33.7 pG CALC (26.0-32.0); MEAN CORPUSCULAR HGB CONC 31.8 g/dL CAL (32.0-36.0); RED BLOOD COUNT 2.49 mill/uL (4.20-5.60); RED CELL DISTRI WIDTH 13.9 % (11.5-15.5)
[2023-02-05 09:10] LABS: ALBUMIN 3.5 g/dL (3.2-5.0); BILIRUBIN, TOTAL 0.5 mg/dL (0.02-1.3); MAGNESIUM 1.9 mg/dL (1.6-2.3); TOTAL PROTEIN 6.5 g/dL (6.3-8.2)
[2023-02-05 09:20] LABS: CREATININE 7.2 mg/dL (0.5-1.0)
[2023-02-05 09:21] LABS: POTASSIUM 5.2 mmol/l (3.5-5.1)
[2023-02-05 17:06] LABS: HEMATOCRIT 22.4 % (37.0-47.0)
[2023-02-05 17:07] LABS: HEMOGLOBIN 6.8 g/dl (12.0-16.0)
[2023-02-06] VITALS (122 sets, daily range): BP systolic 72–163; BP diastolic 37–83
[2023-02-06 05:12] LABS: HEMATOCRIT 22.3 % (37.0-47.0); HEMOGLOBIN 7.2 g/dl (12.0-16.0); MEAN CELL VOLUME 101.4 fL CALC (80.0-100.0); MEAN CORPUSCULAR HGB 32.7 pG CALC (26.0-32.0); MEAN CORPUSCULAR HGB CONC 32.3 g/dL CAL (32.0-36.0); RED BLOOD COUNT 2.2 mill/uL (4.20-5.60); RED CELL DISTRI WIDTH 16.6 % (11.5-15.5)
[2023-02-06 05:23] LABS: BILIRUBIN, TOTAL 0.5 mg/dL (0.02-1.3); MAGNESIUM 1.8 mg/dL (1.6-2.3); POTASSIUM 5.1 mmol/l (3.5-5.1); TOTAL PROTEIN 5.6 g/dL (6.3-8.2)
[2023-02-06 05:29] LABS: CREATININE 7.9 mg/dL (0.5-1.0)
[2023-02-07] VITALS (83 sets, daily range): BP systolic 99–188; BP diastolic 48–91
[2023-02-07 04:51] LABS: HEMATOCRIT 21.7 % (37.0-47.0); MEAN CELL VOLUME 101.9 fL CALC (80.0-100.0); MEAN CORPUSCULAR HGB 32.9 pG CALC (26.0-32.0); MEAN CORPUSCULAR HGB CONC 32.3 g/dL CAL (32.0-36.0); RED BLOOD COUNT 2.13 mill/uL (4.20-5.60); RED CELL DISTRI WIDTH 15.9 % (11.5-15.5)
[2023-02-07 04:58] LABS: ALBUMIN 2.9 g/dL (3.2-5.0); BILIRUBIN, TOTAL 0.4 mg/dL (0.02-1.3); MAGNESIUM 1.5 mg/dL (1.6-2.3); POTASSIUM 4.3 mmol/l (3.5-5.1); TOTAL PROTEIN 5.4 g/dL (6.3-8.2)
[2023-02-07 04:59] LABS: CREATININE 4.9 mg/dL (0.5-1.0); HEMOGLOBIN 7.1 g/dl (12.0-16.0)
[2023-02-08] VITALS (11 sets, daily range): BP systolic 99–162; BP diastolic 57–73
[2023-02-08 04:55] LABS: BASO% 0.5 % (0-3); EOS% 5.7 % (0-8); HEMATOCRIT 22.8 % (37.0-47.0); HEMOGLOBIN 7.3 g/dl (12.0-16.0); LYMPH% 34.4 % (15-41); MEAN CELL VOLUME 103.6 fL CALC (80.0-100.0); MEAN CORPUSCULAR HGB 33.2 pG CALC (26.0-32.0); MONO% 8.4 % (2-13); NEUT# 5.47 thou/uL (2.00-7.15); RED BLOOD COUNT 2.2 mill/uL (4.20-5.60); RED CELL DISTRI WIDTH 15.4 % (11.5-15.5)
[2023-02-08 05:14] LABS: ALBUMIN 3.3 g/dL (3.2-5.0); ALBUMIN 3.4 g/dL (3.2-5.0); BILIRUBIN, TOTAL 0.4 mg/dL (0.02-1.3); POTASSIUM 4.6 mmol/l (3.5-5.1); TOTAL PROTEIN 5.9 g/dL (6.3-8.2)
[2023-02-08 05:24] LABS: CREATININE 6.6 mg/dL (0.5-1.0)
[2023-02-09] VITALS (11 sets, daily range): BP systolic 104–143; BP diastolic 46–90
[2023-02-09 05:27] LABS: BASO% 0.8 % (0-3); EOS% 4.1 % (0-8); IMMATURE GRANULOCYTES 4.7 % (0.0-5.0); MEAN CELL VOLUME 105.5 fL CALC (80.0-100.0); MEAN CORPUSCULAR HGB 33.2 pG CALC (26.0-32.0); MEAN CORPUSCULAR HGB CONC 31.4 g/dL CAL (32.0-36.0); MONO% 7.7 % (2-13); NEUT# 6.64 thou/uL (2.00-7.15); NEUT% 55.7 % (42-76); RED BLOOD COUNT 1.99 mill/uL (4.20-5.60); RED CELL DISTRI WIDTH 15.8 % (11.5-15.5)
[2023-02-09 05:37] LABS: ALBUMIN 3.2 g/dL (3.2-5.0); BILIRUBIN, TOTAL 0.3 mg/dL (0.02-1.3); POTASSIUM 4.8 mmol/l (3.5-5.1); TOTAL PROTEIN 5.6 g/dL (6.3-8.2)
[2023-02-09 05:50] LABS: CREATININE 7.9 mg/dL (0.5-1.0); HEMOGLOBIN 6.6 g/dl (12.0-16.0)
[2023-02-10 00:16] VITALS: BP 186/78
[2023-02-10 05:03] VITALS: BP 186/83
[2023-02-10 05:17] LABS: BASO% 0.6 % (0-3); EOS% 3.1 % (0-8); HEMATOCRIT 23.8 % (37.0-47.0); HEMOGLOBIN 7.8 g/dl (12.0-16.0); IMMATURE GRANULOCYTES 3.9 % (0.0-5.0); LYMPH% 18.4 % (15-41); MEAN CELL VOLUME 99.6 fL CALC (80.0-100.0); MEAN CORPUSCULAR HGB 32.6 pG CALC (26.0-32.0); MEAN CORPUSCULAR HGB CONC 32.8 g/dL CAL (32.0-36.0); MONO% 7.5 % (2-13); NEUT# 8.76 thou/uL (2.00-7.15); NEUT% 66.5 % (42-76); RED BLOOD COUNT 2.39 mill/uL (4.20-5.60); RED CELL DISTRI WIDTH 16.8 % (11.5-15.5)
[2023-02-10 05:26] LABS: MAGNESIUM 1.5 mg/dL (1.6-2.3)
[2023-02-10 05:37] VITALS: BP 151/60
[2023-02-10 07:16] VITALS: BP 164/69
[2023-02-10 11:36] LABS: ALBUMIN 3.4 g/dL (3.2-5.0); TOTAL PROTEIN 6.1 g/dL (6.3-8.2)
[2023-02-10 11:39] LABS: BILIRUBIN, TOTAL 0.5 mg/dL (0.02-1.3); CREATININE 4.9 mg/dL (0.5-1.0)
[2023-02-10 12:43] VITALS: BP 141/57
[2023-02-10] MEDS ORDERED: METRONIDAZOLE500 MG PO (14:48)
[2023-02-10] MEDS ORDERED: PERCOCET 5/325M1 TAB PO (14:53)
[2023-02-10 16:03] VITALS: BP 147/59
== END 2023-02-10 18:15 | DRG 853 ==
LOC: ED 16:17 → ED-I 19:55 → ED 20:33 → MS2 20:34 → ICU 02-05 17:06 → MS2 02-08 00:06
PROVIDERS: Family Medicine; Internal Medicine; Internal Medicine Nephrology; Nurse Practitioner Family; ADMIT Internal Medicine; ATTEND Internal Medicine
PROC: 06HY33Z Insertion of Infusion Device into Lower Vein, Percutaneous Approach (ICD-10-PCS; 2023-02-02)
PROC: 5A1D70Z Performance of Urinary Filtration, Intermittent, Less than 6 Hours Per Day (ICD-10-PCS; 2023-02-03)
PROC: 0U9M0ZZ Drainage of Vulva, Open Approach (ICD-10-PCS; principal; 2023-02-04)
PROC: 0JBB0ZZ Excision of Perineum Subcutaneous Tissue and Fascia, Open Approach (ICD-10-PCS; 2023-02-04)
PROC: 30243N1 Transfusion of Nonautologous Red Blood Cells into Central Vein, Percutaneous Approach (ICD-10-PCS; 2023-02-05)
PROC: 3E043XZ Introduction of Vasopressor into Central Vein, Percutaneous Approach (ICD-10-PCS; 2023-02-05)
PROC: 5A1D70Z Performance of Urinary Filtration, Intermittent, Less than 6 Hours Per Day (ICD-10-PCS; 2023-02-06)
PROC: 5A1D70Z Performance of Urinary Filtration, Intermittent, Less than 6 Hours Per Day (ICD-10-PCS; 2023-02-09)
PROC: 30243N1 Transfusion of Nonautologous Red Blood Cells into Central Vein, Percutaneous Approach (ICD-10-PCS; 2023-02-09)
DX: A41.9 Sepsis, unspecified organism (principal); N18.6 End stage renal disease; N76.4 Abscess of vulva; I12.0 Hypertensive chronic kidney disease with stage 5 chronic kidney disease or end stage renal disease; I69.351 Hemiplegia and hemiparesis following cerebral infarction affecting right dominant side; N25.81 Secondary hyperparathyroidism of renal origin; D62 Acute posthemorrhagic anemia; L76.22 Postprocedural hemorrhage of skin and subcutaneous tissue following other procedure; R65.20 Severe sepsis without septic shock; I95.9 Hypotension, unspecified; E13.22 Other specified diabetes mellitus with diabetic chronic kidney disease; N76.2 Acute vulvitis; Z99.2 Dependence on renal dialysis; D63.1 Anemia in chronic kidney disease; F41.0 Panic disorder [episodic paroxysmal anxiety]; F31.9 Bipolar disorder, unspecified; F17.200 Nicotine dependence, unspecified, uncomplicated; I25.2 Old myocardial infarction; B96.89 Other specified bacterial agents as the cause of diseases classified elsewhere; Z20.822 Contact with and (suspected) exposure to COVID-19; Z88.0 Allergy status to penicillin; Y83.8 Other surgical procedures as the cause of abnormal reaction of the patient, or of later complication, without mention of misadventure at the time of the procedure
CPT/HCPCS: C9290; J0692; J1644; J3370; J3475; P9016; Q5106 EC; Q9967

== ENCOUNTER 2023-03-01 07:02 | Emergency (ER) | payer MEDICARE, MEDICAID ==
[~2023-03-01] VITALS: Ht 177.8 cm; Wt 94.0 kg
[~2023-03-01 07:02] MED LIST changes: +METRONIDAZOLE500 MG PO
[2023-03-01] MEDS ORDERED: OMNI-PAC300 MG PO (07:17)
[2023-03-01] MEDS ORDERED: OFLOXACIN0.3 % OD (07:17)
[2023-03-01] MEDS ORDERED: ZOFRAN4 MG/TAB PO (07:17)
[2023-03-01] MEDS ORDERED: BACTRIM DS1 TAB PO (07:17)
[2023-03-01 07:38] VITALS: BP 170/95
== END 2023-03-01 07:30 | disposition home or self-care (01) ==
LOC: ED 07:02
DX: H00.032 Abscess of right lower eyelid (principal); H10.9 Unspecified conjunctivitis; I12.0 Hypertensive chronic kidney disease with stage 5 chronic kidney disease or end stage renal disease; E11.22 Type 2 diabetes mellitus with diabetic chronic kidney disease; N18.6 End stage renal disease; F31.9 Bipolar disorder, unspecified; I25.2 Old myocardial infarction; F17.200 Nicotine dependence, unspecified, uncomplicated; Z99.2 Dependence on renal dialysis; Z86.73 Personal history of transient ischemic attack (TIA), and cerebral infarction without residual deficits